=== PATIENT | female | born 1975 | race African-American/Black ===

== ENCOUNTER 2018-03-05 14:48 | Emergency (ER) | payer MEDICARE, OTHER ==
[~2018-03-05] VITALS: Ht 167.6 cm; Wt 186.4 kg
[~2018-03-05 14:48] MED LIST: ALBUTEROL SULFAT2 MG PO; ALBUTEROL2.5 MG/0.5 INH; ALDACTONE50 MG PO; ARANESP 6060 MCG/0.1 SUBQ; ATIVAN1 MG PO; AZITHROMYCIN 2250 MG PO; BENADRYL25 MG PO; BROVANA15 MCG/2 M INH; CARDIZEM CD240 M1 PO; CATAPRES0.2 MG PO; CEFDINIR300 MG PO; CLARITIN10 MG PO; COREG6.25 MG PO; COZAAR 50 MG TA50 M2 PO; CYCLOBENZAPRINE5 MG PO; CYMBALTA20 MG PO; CYMBALTA30 MG PO; DIGOXIN125 MCG PO; DUONEB 2.5-0.5 M3 ML INH; ELIQUIS5 MG PO; ENOXAPARIN60 MG/0.1 SUBQ; FEROSUL325 M1 PO; FLONASE 0.05%50 MCG NASAL; GABAPENTIN 100100 MG PO; HEPARIN 1,100 UNIT/1 SUBQ; HUMALOG100 UNIT/1; HYDRALAZINE 2525 MG PO; HYDROXYZINE HCL25 M1 PO; IMDUR 30 MG TAB30 M1 PO; IPRAT-ALBUT 0.5-3 ML INH; KLOR-CON 1010 MEQ PO; LASIX 40 MG TAB40 M2 PO; LASIX 80 MG TAB80 MG PO; LIDODERM1 EACH TRANSDERM; LINEZOLID600 MG PO; LIORESAL 10 MG10 MG PO; LOPRESSOR100 M1 PO; LOPRESSOR25 PO; LYRICA 50 MG50 MG PER TUBE; MINERAL OIL RECTAL; MIRALAX17 GM PO; MUCINEX1200 MG PO; NASONEX17 GM NASAL; NYSTATIN-TRIAMC15 GM TOP; OMEPRAZOLE 20 M20 M1 PER TUBE; ONDANSETRON HCL4 M2 PO; PEPCID20 MG PO; PERCOCET 10-321 EACH PO; POTASSIUM20 PO; PREDNISONE 10 M10 MG PO; PREDNISONE 20 M20 M1 PO; PROBIOTIC1 EAC1 PO; PROTONIX40 M1 PO; PROTONIX40 M4 PO; REFRESH OPTIVE1 EACH OPHTHALMIC; REGLAN 10 MG TA10 MG PO; SALINE NASAL SP30 ML NASAL; SEROQUEL 50 MG50 MG PO; SINGULAIR 10 MG10 M1 PO; SPIRIVA18 MCG INH; SPIRONOLACTONE25 M1 PO; SYMBICORT160 MCG/4. INH; SYNTHROID50 MCG PO; TOBRAMYCIN300 MG/7.5 INH; TRAMADOL 50 MG50 MG PO; TRAZODONE 150150 M1 PO; TYLENOL EXTRA500 MG PO; UNICOMPLEX M TA1 TA1 PO; VANCOCIN 250 M250 M1 PO; VENTOLIN HFA 1818 GM INH; VITAMIN A AND D TOP; ZANTAC 150MG T150 MG PO; ZINC OXIDE56.7 GM TOP; ZOFRAN ODT4 MG SUBLING; ZOLOFT50 MG PO
[2018-03-05] MEDS ORDERED: OXYCODONE HCL 55 MG PER TUBE (15:41)
[2018-03-05] MEDS ORDERED: ZUPLENZ4 MG PER TUBE (15:41)
[2018-03-05] MEDS ORDERED: SILTUSSIN100 MG/5 M PER TUBE (15:54)
[2018-03-05 16:01] LABS: BE(vivo) 4.8 mmol/L (-2 to +3); HCO3 33.1 mmol/L (22.0-26.0); PO2 135.4 mmHg (80.0-100.0); sO2 98.4 % (92.0-98.0)
[2018-03-05 16:02] LABS: PCO2 67.8 mmHg (35.0-45.0); pH 7.306 (7.360-7.450)
[2018-03-05 16:03] LABS: ABSOLUTE NEUTROPHILS 3.2 thou/uL (1.4-8.2); BASOPHILS 2.4 % (0.0-2.0); EOSINOPHILS 5.9 % (0.0-3.0); HEMATOCRIT 38.5 % (37.0-47.0); HEMOGLOBIN 12.1 gm/dL (12.0-15.0); LYMPHOCYTES 41.9 % (24.0-44.0); MCH 23.5 pg (26.0-34.0); MCHC 31.5 g/dL (28.0-37.0); MCV 74.5 fL (80.0-100.0); MONOCYTES 7.4 % (1.0-8.0); PLATELET COUNT 266 thou/uL (150-400); POLYS 42.4 % (36.0-66.0); RBC 5.17 mil/uL (4.20-5.00); RDW 20.8 % (10.5-14.5); WBC 7.6 thou/uL (4.0-11.0)
[2018-03-05 16:11] LABS: CALCIUM 9.4 mg/dL (8.5-10.1); POTASSIUM 4.2 mmol/L (3.5-5.1)
[2018-03-05 16:31] LABS: ANISOCYTOSIS 2+; PLATELET ESTIMATE NORMAL; POLYCHROMASIA SLIGHT
[2018-03-05 18:53] LABS: BE(vivo) 2.4 mmol/L (-2 to +3); HCO3 29.7 mmol/L (22.0-26.0); PO2 85.6 mmHg (80.0-100.0); pH 7.327 (7.360-7.450); sO2 95.6 % (92.0-98.0)
== END 2018-03-05 20:01 ==
LOC: ER 14:48
PROVIDERS: Emergency Medicine
DX: J39.8 Other specified diseases of upper respiratory tract (principal); R06.00 Dyspnea, unspecified; J95.09 Other tracheostomy complication; J44.9 Chronic obstructive pulmonary disease, unspecified; G47.33 Obstructive sleep apnea (adult) (pediatric); I10 Essential (primary) hypertension; E03.9 Hypothyroidism, unspecified; K21.9 Gastro-esophageal reflux disease without esophagitis; F41.9 Anxiety disorder, unspecified; G62.9 Polyneuropathy, unspecified; F32.9 Major depressive disorder, single episode, unspecified; G89.4 Chronic pain syndrome; Z88.8 Allergy status to other drugs, medicaments and biological substances

== ENCOUNTER 2018-03-09 21:32 | Inpatient (IN) | payer MEDICARE, OTHER ==
[~2018-03-09] VITALS: Ht 167.6 cm; Wt 190.5 kg
--- NOTE | ~2018-03-09 | HC ---
[facility] [place] [address] CONSULTATION Name: DAKOTA MOSQUEDA Room #: 204-P [facility] IN M.R.#: [id number] Admission: 03/09/18 Attend Phys: David Pineda Discharge: Date of : 79 Report #: [id number] THIS REPORT FOR: //name// CC: David Brandt Akkulugari DATE OF SERVICE: 03/12/2018 NEPHROLOGY CONSULTATION REASON FOR CONSULTATION: Acute on chronic kidney disease. HISTORY OF PRESENT ILLNESS: This unfortunate massively morbidly obese patient has had chronic respiratory failure, severe debility and basically been hospitalized or in facilities for the last 8 or so months. She was on mechanical ventilation with tracheostomy for most of that time, although currently is on a trach shield. She is extremely debilitated, a complete care patient, cannot eat with a PEG tube. She has had chronic kidney disease with a creatinine level that has run between 1 and 2 for most of the time that she has been in and out of this hospital, but has had a creatinine as low as 1 at times. She has a history of hypertension as well as obstructive sleep apnea, obesity hypoventilation syndrome and very resistant pneumonia, is currently with a very resistant multiple antibiotic resistant Acinetobacter. She is hospitalized at this time with worsening respiratory condition, has had some mucous plugging and her creatinine has risen back up to a level of 2. PAST MEDICAL HISTORY: Chronically massively morbidly obese with hypothyroidism, paroxysmal atrial fibrillation, history of aspiration pneumonia, chronic pain syndrome, mucous plugging and intermittent respiratory failure. She has also had urinary tract infections. She has a PEG tube, currently not eating. ALLERGIES: REPORTEDLY TO MARTINE INHIBITORS WHERE SHE HAS A COUGH. FAMILY HISTORY: Please see old charts. SOCIAL HISTORY: Formally apparently a heavy smoker as well. REVIEW OF SYSTEMS: Cannot be taken, although she is arousable. PHYSICAL EXAMINATION: GENERAL: Massively morbidly obese patient, quiet and relatively comfortable. SKIN: Otherwise, unremarkable. SKELETAL: Again, the obesity. HEENT: Extraocular movements appear to be full. No scleral icterus. Hearing and vision are intact. Tracheostomy in place. Mucous membranes are on the dry side. [facility] [address] [place] [address] CONSULTATION Name: DAKOTA MOSQUEDA Room #: 204-P [facility] IN .R.#: [id number] Admission: 03/09/18 Attend Phys: David Pineda Discharge: Date of : 79 Report #: [id number] NECK: Appears to be supple. CHEST: Shows diminished breath sounds. HEART: Distant. ABDOMEN: Massively obese. EXTREMITIES: Massively edematous. LABORATORY DATA: Her last urinalysis showed a concentrated sample and this was from today with some white cells, no casts. The hemoglobin is 10.4, white count 5.9 and platelets 157. Sodium 147, potassium 4.8, chloride 107, bicarbonate 30, BUN 40, creatinine 2.4. Most recent ABG showed pCO2 of 43. ASSESSMENT AND PLAN: 1. Acute on chronic kidney disease. This is likely event for the most part hemodynamic condition by multiple medications and procedures probably for the most part related to all of her infections and illnesses and of course, her massive obesity. She does not have heavy proteinuria to suggest focal sclerosis. She is getting appropriate IV fluids and I will not make a change there. I will give her more free water as her serum sodium is up a bit, and I will discontinue the IV Lasix as that does not seem to be appropriate in this case. Her prognosis is poor. I certainly would not consider her a candidate for chronic dialysis therapy should it come to that. 2. Obstructive sleep apnea. 3. Obesity hypoventilation syndrome. 4. Chronic tracheostomy. 5. Resisted pneumonitis. 6. History of atrial fibrillation. 7. Severe chronic debility. 8. Massive morbid obesity. <ELECTRONICALLY SIGNED> By: Lion Person MD 03/13/18 1128 1051 0110 Lion Person MD /nt
--- NOTE | ~2018-03-09 | HC ---
[facility] [place] [address] [place] [address] CONSULTATION Name: JAYLINDAKOTA D Room #: 204-P [facility] IN M.R.#: [id number] Admission: 03/09/18 Attend Phys: David Pineda Discharge: Date of : 79 Report #: [id number] THIS REPORT FOR: //name// CC: David Brandt Akkulugari DATE OF SERVICE: 03/10/2018 INFECTIOUS DISEASE CONSULTATION ATTENDING PHYSICIAN: Dr. Lazo. REASON FOR EVALUATION: Pneumonitis with pseudo-isolative highly-resistant Acinetobacter baumannii. HISTORY OF PRESENT ILLNESS: Chart reviewed, the patient examined. This is a 42-year-old with extensive medical history given her age. She is profoundly disabled, does reside in a fpc. She has chronic respiratory failure and on mechanical ventilatory support via tracheostomy. Apparently, she was more encephalopathic than recently evaluated, including culture of the sputum, which showed multiple-resistant Acinetobacter baumannii, only intermediate to levofloxacin. She is not particularly responsive at this point. She was then referred from the fpc with was thought to be hypoxemia. It is notable there has been suggestive mucus plugging in the past. It is not clear that she has had fevers. Additional studies showed pO2 of 80 on an FiO2 of 50%. Chest x-ray with chronic changes, left lower lung opacities. CBC was noted to be elevated, with white count of 18.3. She was empirically started on broad-spectrum therapy with vancomycin, Zosyn and levofloxacin. ALLERGIES: TO MARTINE INHIBITORS. CURRENT MEDICATIONS: Include vancomycin, pregabalin, apixaban, duloxetine, quetiapine, furosemide, Zosyn, levothyroxine, levofloxacin, budesonide, albuterol, p.r.n. analgesics and antiemetics. PAST MEDICAL HISTORY: Extensive, with some recent anoxic-type encephalopathy, anxiety, depression, COPD, obstructive sleep apnea, chronic respiratory failure with support via tracheostomy and mechanical ventilation, history of urinary tract infections; pneumonitis; sepsis; chronic pain syndrome and left lower extremity paralysis. SOCIAL HISTORY: Heavy tobacco smoker previously, alcohol not noted. No illicit drug use. FAMILY HISTORY: Noncontributory. [facility] [address] [place] [address] CONSULTATION Name: JAYLINDAKOTA D Room #: 204-P [facility] IN ..#: [id number] Admission: 03/09/18 Attend Phys: David Pineda Discharge: Date of : 79 Report #: [id number] REVIEW OF SYSTEMS: Not obtainable. PHYSICAL EXAMINATION: GENERAL: She is obese. She is supine. She is not overtly uncomfortable appearing at this point. She is minimally responsive. VITAL SIGNS: Temperature 98.7, pulse 78, respirations 11 and blood pressure 126/92. SKIN: Warm, dry. HEENT: Tracheostomy in place. Neck appears to be supple. LUNGS: Scattered coarse breath sounds. HEART: Regular, distant. I do not appreciate a murmur. ABDOMEN: Obese. There is no evidence of peritoneal signs. GENITOURINARY: Deferred. RECTAL: Deferred. LABORATORY DATA: CBC: White count of 18.3, H and H 12.7 and 41.3 and platelets of 229,000. Lactic acid 3.0. Electrolytes: Sodium 140, potassium 4.7, chloride 104, bicarbonate is 29, BUN and creatinine 27 and 2.3, estimated GFR of 28. ABGs: A pH of 7.428, pCO2 of 43 and pO2 of 80. Sputum culture from the first shows Acinetobacter noted to the side sensitive to , intermediate to levofloxacin, although otherwise resistant to all previous individual antibiotics tested. ASSESSMENT AND PLAN: Chronic respiratory failure. It is difficult to ascertain the degree of infectious component. I think we can adjust antimicrobial therapy. It may be worthwhile at some point to try the samples to some of the newer broad-spectrum combination therapies directed against resistant gram negatives. At this point, we have limited options based on the in vitro. We will try to optimize other aspects of her situation. Good pulmonary toilet in the event mucus plugging is playing a role here. We will see how she does clinically. <ELECTRONICALLY SIGNED> By: Rolo Braun MD 03/11/18 0357 0634 1306 Rolo Braun MD /nt
[~2018-03-09 21:32] MED LIST changes: +OXYCODONE HCL 55 MG PER TUBE; +SILTUSSIN100 MG/5 M PER TUBE; -TYLENOL EXTRA500 MG PO; +TYLENOL325 MG PO; +ZUPLENZ4 MG PER TUBE
[2018-03-09 21:36] VITALS: BP 122/62
[2018-03-09 22:55] LABS: HCO3 27.8 mmol/L (22.0-26.0); PO2 80 mmHg (80.0-100.0); pH 7.428 (7.360-7.450)
[2018-03-09 22:57] LABS: sO2 96.1 % (92.0-98.0)
[2018-03-10 03:05] LABS: HEMATOCRIT 41.3 % (37.0-47.0); HEMOGLOBIN 12.7 gm/dL (12.0-15.0); MCH 22.8 pg (26.0-34.0); MCHC 30.8 g/dL (28.0-37.0); MCV 73.9 fL (80.0-100.0); PLATELET COUNT 229 thou/uL (150-400); RBC 5.59 mil/uL (4.20-5.00); RDW 20.5 % (10.5-14.5); WBC 18.3 thou/uL (4.0-11.0)
[2018-03-10 03:12] LABS: CALCIUM 8.6 mg/dL (8.5-10.1); CREATININE 2.3 mg/dL (0.6-1.0); POTASSIUM 4.7 mmol/L (3.5-5.1)
[2018-03-10 03:46] LABS: ABSOLUTE NEUTROPHILS 14.5 thou/uL (1.4-8.2); ANISOCYTOSIS 1+; MICROCYTES 1+; POLYCHROMASIA OCCASIONAL
[2018-03-10 03:47] LABS: HYPOCHROMASIA SLIGHT; LARGE PLATELETS OCCASIONAL
[2018-03-10 03:59] VITALS: BP 119/87
[2018-03-10 04:07] VITALS: BP 126/92
[2018-03-10 10:43] VITALS: BP 102/68
[2018-03-10 16:10] VITALS: BP 104/69
[2018-03-10 19:25] VITALS: BP 126/83
[2018-03-11 03:58] VITALS: BP 122/78
[2018-03-11 04:11] LABS: HEMATOCRIT 37.5 % (37.0-47.0); HEMOGLOBIN 12.1 gm/dL (12.0-15.0); MCH 23.8 pg (26.0-34.0); MCHC 32.3 g/dL (28.0-37.0); MCV 73.8 fL (80.0-100.0); RBC 5.09 mil/uL (4.20-5.00); RDW 20.6 % (10.5-14.5); WBC 10.3 thou/uL (4.0-11.0)
[2018-03-11 04:24] LABS: CALCIUM 8.4 mg/dL (8.5-10.1); CREATININE 2.4 mg/dL (0.6-1.0); POTASSIUM 4.7 mmol/L (3.5-5.1)
[2018-03-11 07:19] VITALS: BP 122/76
[2018-03-11 11:41] VITALS: BP 114/72
[2018-03-11 14:58] VITALS: BP 143/72
[2018-03-11 19:51] VITALS: BP 113/77
[2018-03-12 03:13] LABS: HEMATOCRIT 33.7 % (37.0-47.0); HEMOGLOBIN 10.4 gm/dL (12.0-15.0); MCH 22.9 pg (26.0-34.0); MCHC 30.8 g/dL (28.0-37.0); MCV 74.1 fL (80.0-100.0); RBC 4.55 mil/uL (4.20-5.00); RDW 20.8 % (10.5-14.5); WBC 5.9 thou/uL (4.0-11.0)
[2018-03-12 03:22] LABS: CALCIUM 7.9 mg/dL (8.5-10.1); CREATININE 2.4 mg/dL (0.6-1.0); POTASSIUM 4.8 mmol/L (3.5-5.1)
[2018-03-12 03:24] LABS: URINE BILIRUBIN NEGATIVE (Negative); URINE BLOOD 2+ (Negative); URINE CLARITY CLEAR; URINE COLOR YELLOW; URINE GLUCOSE-RANDOM* NEGATIVE (Negative); URINE KETONES NEGATIVE (Negative); URINE NITRITE-REFLEX NEGATIVE (Negative); URINE PROTEIN (DIPSTICK) NEGATIVE (Negative); URINE SPECIFIC GRAVITY 1.025 (1.005-1.035); URINE UROBILINOGEN 0.2 E.U./dl (0.2-1.0)
[2018-03-12 03:25] LABS: URINE LEUKOCYTES-REFLEX 2+ (Negative)
[2018-03-12 03:33] LABS: BACTERIA-REFLEX 1-9 Few /HPF (None Seen); CASTS None Seen /LPF (None Seen); CRYSTALS None Seen /LPF (None Seen); SQUAMOUS 0-3 Few /LPF (0-3); URINE RBC 0-2 Rare /HPF (0-2)
[2018-03-12 03:34] LABS: YEAST-REFLEX Present (None Seen)
[2018-03-12 04:53] VITALS: BP 164/102
[2018-03-12 07:22] VITALS: BP 131/75
[2018-03-12 11:49] VITALS: BP 123/84
[2018-03-12 14:38] LABS: INR 1.2; PROTIME 12.3 Seconds (9.3-11.4)
[2018-03-12 15:39] VITALS: BP 127/86
[2018-03-12 20:00] VITALS: BP 119/72
[2018-03-13 00:06] VITALS: BP 120/75
[2018-03-13 03:17] LABS: HEMATOCRIT 36.4 % (37.0-47.0); HEMOGLOBIN 11.1 gm/dL (12.0-15.0); MCH 22.6 pg (26.0-34.0); MCHC 30.4 g/dL (28.0-37.0); MCV 74.2 fL (80.0-100.0); RBC 4.91 mil/uL (4.20-5.00); RDW 20.3 % (10.5-14.5); WBC 5.4 thou/uL (4.0-11.0)
[2018-03-13 03:33] LABS: ALBUMIN 1.7 g/dL (3.4-5.0); CALCIUM 8.2 mg/dL (8.5-10.1); CREATININE 2.2 mg/dL (0.6-1.0); PHOSPHORUS 5.1 mg/dL (2.5-4.9); POTASSIUM 4.8 mmol/L (3.5-5.1)
[2018-03-13 04:00] VITALS: BP 122/63
[2018-03-13 08:54] VITALS: BP 102/62
[2018-03-13 11:23] VITALS: BP 112/74
[2018-03-13 15:03] VITALS: BP 152/97
[2018-03-13 19:43] VITALS: BP 117/69
[2018-03-14 04:42] VITALS: BP 110/78
[2018-03-14 06:16] LABS: ABSOLUTE NEUTROPHILS 2.9 thou/uL (1.4-8.2); BASOPHILS 0.1 % (0.0-2.0); HEMOGLOBIN 9.9 gm/dL (12.0-15.0); MCH 23.6 pg (26.0-34.0); MCHC 31.9 g/dL (28.0-37.0); MONOCYTES 5.7 % (1.0-8.0); PLATELET COUNT 112 thou/uL (150-400); POLYS 74.2 % (36.0-66.0); RBC 4.19 mil/uL (4.20-5.00); RDW 20.5 % (10.5-14.5); WBC 3.9 thou/uL (4.0-11.0)
[2018-03-14 06:21] LABS: ALBUMIN 1.6 g/dL (3.4-5.0); CALCIUM 7.5 mg/dL (8.5-10.1); CREATININE 1.7 mg/dL (0.6-1.0); PHOSPHORUS 4.1 mg/dL (2.5-4.9); POTASSIUM 4.4 mmol/L (3.5-5.1)
[2018-03-14 08:44] VITALS: BP 111/68
[2018-03-14 10:33] LABS: ANISOCYTOSIS 1+; PLATELET ESTIMATE NORMAL
[2018-03-14 10:34] LABS: HYPOCHROMASIA 1+; MICROCYTES 2+
[2018-03-14 11:39] VITALS: BP 124/80
[2018-03-14 16:29] VITALS: BP 149/85
[2018-03-14 20:57] VITALS: BP 112/73
[2018-03-15 04:59] LABS: ALBUMIN 1.7 g/dL (3.4-5.0); CALCIUM 7.6 mg/dL (8.5-10.1); CREATININE 1.4 mg/dL (0.6-1.0); PHOSPHORUS 3.9 mg/dL (2.5-4.9); POTASSIUM 4.7 mmol/L (3.5-5.1)
[2018-03-15 06:12] VITALS: BP 109/69
[2018-03-15 08:05] VITALS: BP 132/66
[2018-03-15 17:17] VITALS: BP 132/60
[2018-03-15 18:30] LABS: CALCIUM 8.4 mg/dL (8.5-10.1); CREATININE 1.3 mg/dL (0.6-1.0); POTASSIUM 4.6 mmol/L (3.5-5.1)
[2018-03-15 18:31] LABS: MAGNESIUM 1.8 mg/dL (1.8-2.4)
[2018-03-15 20:01] VITALS: BP 129/68
[2018-03-16 02:58] LABS: CALCIUM 8.3 mg/dL (8.5-10.1); CREATININE 1.1 mg/dL (0.6-1.0); POTASSIUM 4.6 mmol/L (3.5-5.1)
[2018-03-16 05:08] VITALS: BP 132/60
[2018-03-16 08:39] VITALS: BP 135/76
[2018-03-16 17:30] VITALS: BP 160/87
[2018-03-16 20:38] VITALS: BP 138/69
[2018-03-17 02:11] LABS: HEMATOCRIT 31.2 % (37.0-47.0); HEMOGLOBIN 9.7 gm/dL (12.0-15.0); MCH 22.9 pg (26.0-34.0); MCV 73.9 fL (80.0-100.0); PLATELET COUNT 98 thou/uL (150-400); RBC 4.22 mil/uL (4.20-5.00); RDW 19.9 % (10.5-14.5); WBC 9.7 thou/uL (4.0-11.0)
[2018-03-17 02:23] LABS: CALCIUM 8.6 mg/dL (8.5-10.1); POTASSIUM 4.4 mmol/L (3.5-5.1)
[2018-03-17 03:23] LABS: ABSOLUTE NEUTROPHILS 8.1 thou/uL (1.4-8.2)
[2018-03-17 03:24] LABS: ANISOCYTOSIS 1+; HYPOCHROMASIA 2+; MICROCYTES 1+; OVALOCYTES OCCASIONAL; TARGET CELLS OCCASIONAL
[2018-03-17 04:40] VITALS: BP 86/67
[2018-03-17 04:51] VITALS: BP 152/87
[2018-03-17 07:50] VITALS: BP 143/79
[2018-03-17 09:22] LABS: POTASSIUM 4.4 mmol/L (3.5-5.1)
[2018-03-17 11:45] VITALS: BP 143/71
[2018-03-17 15:30] VITALS: BP 137/76
[2018-03-17 19:28] VITALS: BP 115/57
[2018-03-18 04:27] VITALS: BP 114/56
[2018-03-18 05:34] LABS: HEMATOCRIT 26.1 % (37.0-47.0); MCH 22.6 pg (26.0-34.0); MCHC 30.8 g/dL (28.0-37.0); MCV 73.4 fL (80.0-100.0); PLATELET COUNT 83 thou/uL (150-400); RBC 3.56 mil/uL (4.20-5.00); RDW 19.9 % (10.5-14.5)
[2018-03-18 05:47] LABS: CALCIUM 8.5 mg/dL (8.5-10.1); CREATININE 0.9 mg/dL (0.6-1.0)
[2018-03-18 06:12] LABS: ABSOLUTE NEUTROPHILS 4.4 thou/uL (1.4-8.2); ANISOCYTOSIS 2+; HYPOCHROMASIA 2+; LARGE PLATELETS FEW; MICROCYTES 2+; PLATELET ESTIMATE DECREASED
[2018-03-18 08:00] VITALS: BP 134/57
[2018-03-18 12:27] LABS: CALCIUM 8.8 mg/dL (8.5-10.1); CREATININE 0.8 mg/dL (0.6-1.0); POTASSIUM 4.2 mmol/L (3.5-5.1)
[2018-03-18 15:50] VITALS: BP 120/55
[2018-03-18 20:00] VITALS: BP 119/69
[2018-03-19 02:02] LABS: ABSOLUTE NEUTROPHILS 6.1 thou/uL (1.4-8.2); BASOPHILS 0.5 % (0.0-2.0); EOSINOPHILS 6.9 % (0.0-3.0); HEMOGLOBIN 8.7 gm/dL (12.0-15.0); LYMPHOCYTES 32.5 % (24.0-44.0); MCH 22.7 pg (26.0-34.0); MCHC 30.9 g/dL (28.0-37.0); MCV 73.4 fL (80.0-100.0); MONOCYTES 9.2 % (1.0-8.0); PLATELET COUNT 101 thou/uL (150-400); POLYS 50.9 % (36.0-66.0); RBC 3.81 mil/uL (4.20-5.00); RDW 19.4 % (10.5-14.5)
[2018-03-19 02:05] LABS: CALCIUM 8.8 mg/dL (8.5-10.1); CREATININE 0.8 mg/dL (0.6-1.0)
[2018-03-19 03:22] LABS: ANISOCYTOSIS 1+; HYPOCHROMASIA 2+; MICROCYTES 1+; TARGET CELLS OCCASIONAL
[2018-03-19 04:38] VITALS: BP 124/67
[2018-03-19 07:40] VITALS: BP 133/76
[2018-03-19 11:55] VITALS: BP 128/70
[2018-03-19 15:55] VITALS: BP 163/79
[2018-03-19 20:14] VITALS: BP 164/90
[2018-03-20 00:53] LABS: HEMATOCRIT 27.8 % (37.0-47.0); MCH 23.5 pg (26.0-34.0); MCHC 32.3 g/dL (28.0-37.0); MCV 72.7 fL (80.0-100.0); PLATELET COUNT 98 thou/uL (150-400); RBC 3.83 mil/uL (4.20-5.00); RDW 19.6 % (10.5-14.5); WBC 9.7 thou/uL (4.0-11.0)
[2018-03-20 01:08] LABS: CALCIUM 8.8 mg/dL (8.5-10.1); CREATININE 0.8 mg/dL (0.6-1.0); POTASSIUM 3.7 mmol/L (3.5-5.1)
[2018-03-20 01:28] LABS: ABSOLUTE NEUTROPHILS 7.5 thou/uL (1.4-8.2)
[2018-03-20 01:29] LABS: ANISOCYTOSIS 1+; HYPOCHROMASIA 1+; MICROCYTES 1+; TARGET CELLS 1+
[2018-03-20 05:04] VITALS: BP 143/79
[2018-03-20 07:30] VITALS: BP 139/74
[2018-03-20 11:10] VITALS: BP 130/69
[2018-03-20 15:55] VITALS: BP 196/73
[2018-03-20 19:18] VITALS: BP 146/82
[2018-03-21 04:33] VITALS: BP 121/74
[2018-03-21 06:12] LABS: HEMATOCRIT 25.4 % (37.0-47.0); HEMOGLOBIN 8.3 gm/dL (12.0-15.0); MCH 23.7 pg (26.0-34.0); MCHC 32.8 g/dL (28.0-37.0); MCV 72.4 fL (80.0-100.0); PLATELET COUNT 114 thou/uL (150-400); RBC 3.52 mil/uL (4.20-5.00); RDW 19.9 % (10.5-14.5); WBC 13.1 thou/uL (4.0-11.0)
[2018-03-21 06:19] LABS: CALCIUM 9.1 mg/dL (8.5-10.1); CREATININE 0.8 mg/dL (0.6-1.0); POTASSIUM 3.5 mmol/L (3.5-5.1)
[2018-03-21 08:06] VITALS: BP 122/62
[2018-03-21 08:44] LABS: ABSOLUTE NEUTROPHILS 6.7 thou/uL (1.4-8.2); PLATELET ESTIMATE NORMAL
[2018-03-21 08:45] LABS: ANISOCYTOSIS 2+; MICROCYTES 1+; SCHISTOCYTES RARE
[2018-03-21] MEDS ORDERED: MINOCIN50 MG PO (11:48)
[2018-03-21] MEDS ORDERED: HYDROCODON-ACE1 EAC7 PO (12:06)
[2018-03-21 12:10] VITALS: BP 104/57
[2018-03-21] MEDS ORDERED: DIGOXIN125 MCG PO (12:18)
[2018-03-21] MEDS ORDERED: ZAROXOLYN 5MG TA5 MG PO (12:19)
[2018-03-21] MEDS ORDERED: GLUCAGEN1 MG/1 ML IM (12:22)
[2018-03-21 13:36] VITALS: BP 104/57
[2018-03-21] MEDS ORDERED: SPIRONOLACTONE25 M1 PO (13:42)
== END 2018-03-21 17:48 | DRG 871 ==
LOC: ER 21:32 → EROBS 23:52 → 2N 23:52
PROVIDERS: Family Medicine; Internal Medicine; Internal Medicine Nephrology; Internal Medicine Pulmonary Disease; Nurse Practitioner Family; Student in an Organized Health Care Education/Training Program
DX: A41.9 Sepsis, unspecified organism (principal); J96.21 Acute and chronic respiratory failure with hypoxia; E43 Unspecified severe protein-calorie malnutrition; I50.33 Acute on chronic diastolic (congestive) heart failure; J15.29 Pneumonia due to other staphylococcus; G93.40 Encephalopathy, unspecified; N17.9 Acute kidney failure, unspecified; E87.0 Hyperosmolality and hypernatremia; E27.40 Unspecified adrenocortical insufficiency; Z68.44 Body mass index [BMI] 60.0-69.9, adult; J44.0 Chronic obstructive pulmonary disease with (acute) lower respiratory infection; I13.0 Hypertensive heart and chronic kidney disease with heart failure and stage 1 through stage 4 chronic kidney disease, or unspecified chronic kidney disease; G47.33 Obstructive sleep apnea (adult) (pediatric); E03.9 Hypothyroidism, unspecified; K21.9 Gastro-esophageal reflux disease without esophagitis; G60.9 Hereditary and idiopathic neuropathy, unspecified; F41.9 Anxiety disorder, unspecified; F32.9 Major depressive disorder, single episode, unspecified; G89.4 Chronic pain syndrome; E66.01 Morbid (severe) obesity due to excess calories; I48.0 Paroxysmal atrial fibrillation; N18.9 Chronic kidney disease, unspecified; R13.10 Dysphagia, unspecified; Y95 Nosocomial condition; E16.2 Hypoglycemia, unspecified; E88.09 Other disorders of plasma-protein metabolism, not elsewhere classified; D69.6 Thrombocytopenia, unspecified; G72.9 Myopathy, unspecified; Z88.8 Allergy status to other drugs, medicaments and biological substances; Z87.81 Personal history of (healed) traumatic fracture; Z93.0 Tracheostomy status; Z93.1 Gastrostomy status
CPT/HCPCS: 10081

== ENCOUNTER 2018-03-25 03:13 | Inpatient (IN) | payer MEDICARE, OTHER ==
[~2018-03-25] VITALS: Ht 170.2 cm; Wt 193.3 kg
[2018-03-25] VITALS (14 sets, daily range): BP systolic 95–147; BP diastolic 47–90
--- NOTE | ~2018-03-25 | HC ---
[facility] [place] [address] [place] [address] CONSULTATION Name: JAYLINDAKOTA Jennie Room #: 361-P [facility] IN ..#: [id number] Admission: 03/25/18 Attend Phys: Kurt Case MD Discharge: Date of : 79 Report #: [id number] THIS REPORT FOR: //name// CC: Kurt Brandt Akkulugari DATE OF SERVICE: 03/26/2018 CHIEF COMPLAINT: Multiple cutaneous ulcerations. HISTORY OF PRESENT ILLNESS: This is a 42-year-old morbidly obese female patient with history of respiratory failure and tracheostomy who was admitted for pneumonia and respiratory failure with mucus plugging. She was hypoxic with sats in the 70s and is admitted for further evaluation and treatment. She is noted to have multiple ulcerations to her sacral gluteal region as well as under her arms and skin fold and I have been asked to see her in this regard. The patient is unable to answer many questions at this point in time. ALLERGIES: MARTINE INHIBITORS. MEDICATIONS INCLUDE: Minocycline, hydrocodone, acetaminophen, glucagon, spironolactone, carvedilol, duloxetine, DuoNeb, omeprazole, nystatin, triamcinolone, baclofen. PAST MEDICAL HISTORY: Super morbid obesity, atrial fibrillation, mucus plugging, general debility, respiratory failure, urinary tract infection, right distal femur fracture, hypertension, obstructive sleep apnea, hypothyroidism, gastroesophageal reflux disease, urinary retention. SOCIAL HISTORY: The patient admits to having 1-2 alcoholic drinks per week. Previous smoker. Denies drug use. FAMILY HISTORY: Noncontributory. REVIEW OF SYSTEMS: Not obtainable due to the patient's current respiratory issues. PHYSICAL EXAMINATION: VITAL SIGNS: At this time include temperature 37.1, pulse 99, respiratory rate 18, blood pressure 123/83. GENERAL: This is a chronically ill-appearing female patient who appears to be in minimal distress. HEENT: Head is normocephalic. Nose and throat clear. NECK: Supple. LUNGS: Diminished. HEART: Regular rhythm. [facility] [address] [place] [address] CONSULTATION Name: DAKOTA MOSQUEDA Room #: 361-[facility] IN M.R.#: [id number] Admission: 03/25/18 Attend Phys: Kurt Case MD Discharge: Date of : 77 Report #: [id number] ABDOMEN: Soft, obese. She has intertrigo of multiple skin folds beneath her breasts, axilla and abdominal skin folds. I have not been able to evaluate her posterior thighs, gluteal sacral region as she has refused to turn at this time due to respiratory difficulty. NEUROLOGIC: The patient is alert. She seems to be moving all 4 extremities spontaneously. LABORATORY DATA: Sodium 145, potassium 3.8, CO2 of 29, BUN 9, creatinine 0.9, glucose 97, total protein 5.2, albumin is low at 1.8. White blood cell count elevated at 13.9, hemoglobin 7.6. CLINICAL IMPRESSION: 1. Intertrigo. 2. History of sacral gluteal posterior thigh, moisture-associated dermatitis. RECOMMENDATIONS: At this point in time, the patient will be placed in a bariatric low air loss mattress, which we will order today. Prevalon boots for pressure prophylaxis of her heel. She will need q. 2 hour turning and repositioning, aggressive nutritional support. She would certainly benefit from weight loss. We will recommend [employer] to her skin folds and Silvadene, morphine, and zinc oxide to the sacral gluteal region. She agrees to allow us to look at her backside tomorrow. I appreciate being asked to see her in consultation. <ELECTRONICALLY SIGNED> By: Jalil Li MD 03/28/18 0744 [id number] 0050 Jalil Li MD /nt
--- NOTE | ~2018-03-25 | EKG ---
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: tre : 1975 Requested By: Luis Enrique Ahuja Order Number: [id number] MD: Enio Palmer Measurements Intervals [place] Rate: 101 P: 53 [place]: 141 QRS: 43 QRSD: 80 T: -5 QT: 353 QTc: 458 Interpretive Statements Sinus tachycardia Nonspecific T abnormalities, anterior leads Compared to ECG 02/10/2018 12:10:48 T-wave abnormality now present Atrial fibrillation no longer present Early repolarization no longer present Possible ischemia no longer present Electronically Signed On 03-26-2018 8:33:24 CDT by Enio Palmer [email or web address] <ELECTRONICALLY SIGNED> By: Enio Palmer MD 03/26/18 0833 0356 0356 Enio Palmer MD /EPI
[~2018-03-25 03:13] MED LIST changes: +GLUCAGEN1 MG/1 ML IM; +HYDROCODON-ACE1 EAC7 PO; +MINOCIN50 MG PO; +ZAROXOLYN 5MG TA5 MG PO
[2018-03-25 03:50] LABS: HEMATOCRIT 26.6 % (37.0-47.0); HEMOGLOBIN 8.5 gm/dL (12.0-15.0); MCH 23.8 pg (26.0-34.0); MCHC 32.1 % (28.0-37.0); MCV 74.2 fL (80.0-100.0); PLATELET COUNT 202 thou/uL (150-400); RBC 3.59 mil/uL (4.20-5.00)
[2018-03-25 03:56] LABS: ANION GAP 10 mmol/L (7-16); BUN 10 mg/dL (7-18); CALCIUM 8.4 mg/dL (8.5-10.1); CHLORIDE 105 mmol/L (98-107); CO2 28 mmol/L (21-32); GLUCOSE 117 mg/dL (74-106); POTASSIUM 4.3 mmol/L (3.5-5.1); SODIUM 143 mmol/L (136-145)
[2018-03-25 04:04] LABS: BE(vivo) 2.5 mmol/L (-2 to +3); HCO3 26.6 mmol/L (22.0-26.0); PCO2 38.9 mmHg (35.0-45.0); PO2 176.8 mmHg (80.0-100.0); pH 7.453 (7.360-7.450); sO2 99.3 % (92.0-98.0)
[2018-03-25 04:05] LABS: ALBUMIN 1.8 g/dL (3.4-5.0); MAGNESIUM 1.5 mg/dL (1.8-2.4); SGOT 44 U/L (15-37); SGPT 31 U/L (30-65); TOTAL BILIRUBIN 0.6 mg/dL (<0.1-1.0); TOTAL PROTEIN 5.2 g/dL (6.4-8.2); TROPONIN-I <0.06 ng/mL (<0.06)
[2018-03-25 04:36] LABS: ABSOLUTE NEUTROPHILS 4.4 thou/uL (1.4-8.2); NUCLEATED RBCS 1 /100WBC
[2018-03-25 04:37] LABS: ANISOCYTOSIS 1+; HYPOCHROMASIA SLIGHT; MICROCYTES SLIGHT; OVALOCYTES FEW; POIKILOCYTOSIS 1+; POLYCHROMASIA SLIGHT
[2018-03-25 16:31] LABS: URINE BILIRUBIN NEGATIVE (Negative); URINE BLOOD 3+ (Negative); URINE COLOR YELLOW; URINE GLUCOSE-RANDOM* NEGATIVE (Negative); URINE KETONES NEGATIVE (Negative); URINE NITRITE-REFLEX NEGATIVE (Negative); URINE PROTEIN (DIPSTICK) 1+ (Negative); URINE SPECIFIC GRAVITY 1.025 (1.005-1.035); URINE UROBILINOGEN 0.2 E.U./dl (0.2-1.0)
[2018-03-25 16:33] LABS: URINE CLARITY SL HAZY; URINE LEUKOCYTES-REFLEX 2+ (Negative)
[2018-03-25 16:45] LABS: CASTS None Seen /LPF (None Seen); SQUAMOUS 4-10 Moderate /LPF (0-3); URINE WBC-REFLEX >25 Many /HPF (0-5); YEAST-REFLEX Present (None Seen)
[2018-03-25 16:46] LABS: BACTERIA-REFLEX None Seen /HPF (None Seen); URINE RBC 3-10 Few /HPF (0-2)
[2018-03-25 16:47] LABS: URIC ACID CRYSTALS 4-10 Moderate /LPF (None Seen)
[2018-03-26] VITALS (9 sets, daily range): BP systolic 88–123; BP diastolic 54–83
[2018-03-26 04:33] LABS: HEMOGLOBIN 7.6 gm/dL (12.0-15.0); MCH 23.2 pg (26.0-34.0); MCHC 31.6 g/dL (28.0-37.0); MCV 73.5 fL (80.0-100.0); RBC 3.26 mil/uL (4.20-5.00); RDW 21.8 % (10.5-14.5); WBC 13.9 thou/uL (4.0-11.0)
[2018-03-26 04:36] LABS: CREATININE 0.9 mg/dL (0.6-1.0); POTASSIUM 3.8 mmol/L (3.5-5.1)
[2018-03-26] MEDS ORDERED: OXYCODONE HCL 55 MG PER TUBE (11:10)
[2018-03-26] MEDS ORDERED: POTASSIUM20 PER TUBE (11:10)
[2018-03-26] MEDS ORDERED: PERCOCET 10-321 EAC1 PO (11:10)
[2018-03-26] MEDS ORDERED: ALDACTONE50 MG PO (11:11)
[2018-03-26] MEDS ORDERED: METOLAZONE 5 MG5 MG PER TUBE (11:11)
[2018-03-26] MEDS ORDERED: HYDRALAZINE 2525 MG PO (11:11)
[2018-03-26] MEDS ORDERED: PULMICORT0.25 MG/3 INH (11:12)
[2018-03-26] MEDS ORDERED: CYMBALTA30 MG PO (11:12)
[2018-03-26] MEDS ORDERED: DIGOXIN125 MCG PO (11:12)
[2018-03-26] MEDS ORDERED: LIDODERM1 EACH TRANSDERM (11:13)
[2018-03-27 06:17] VITALS: BP 92/55
[2018-03-27 07:09] LABS: ABSOLUTE NEUTROPHILS 7.1 thou/uL (1.4-8.2); BASOPHILS 0.8 % (0.0-2.0); EOSINOPHILS 6.4 % (0.0-3.0); HEMATOCRIT 21.8 % (37.0-47.0); HEMOGLOBIN 7.1 gm/dL (12.0-15.0); LYMPHOCYTES 17.2 % (24.0-44.0); MCH 23.8 pg (26.0-34.0); MCHC 32.5 g/dL (28.0-37.0); MCV 73.3 fL (80.0-100.0); PLATELET COUNT 179 thou/uL (150-400); POLYS 64.6 % (36.0-66.0); RBC 2.98 mil/uL (4.20-5.00); RDW 21.5 % (10.5-14.5); WBC 10.9 thou/uL (4.0-11.0)
[2018-03-27 07:23] LABS: CALCIUM 7.8 mg/dL (8.5-10.1); CREATININE 0.9 mg/dL (0.6-1.0)
[2018-03-27 08:32] LABS: ANISOCYTOSIS 2+; HYPOCHROMASIA 1+; MICROCYTES 2+; PLATELET ESTIMATE NORMAL
[2018-03-27 13:24] VITALS: BP 97/57
[2018-03-27 17:05] VITALS: BP 97/41
[2018-03-27 21:00] VITALS: BP 126/61
[2018-03-28 05:07] VITALS: BP 119/64
[2018-03-28 06:10] LABS: HEMATOCRIT 21.7 % (37.0-47.0); MCH 23.6 pg (26.0-34.0); MCHC 32.3 g/dL (28.0-37.0); RBC 2.98 mil/uL (4.20-5.00); RDW 21.3 % (10.5-14.5); WBC 10.7 thou/uL (4.0-11.0)
[2018-03-28 06:34] LABS: CREATININE 0.9 mg/dL (0.6-1.0); POTASSIUM 3.6 mmol/L (3.5-5.1)
[2018-03-28 09:06] VITALS: BP 137/75
[2018-03-28 11:56] VITALS: BP 114/60
[2018-03-28 19:21] VITALS: BP 117/56
[2018-03-28 19:48] VITALS: BP 110/53
[2018-03-29 04:56] VITALS: BP 100/54
[2018-03-29 06:12] LABS: CALCIUM 7.7 mg/dL (8.5-10.1); CREATININE 0.7 mg/dL (0.6-1.0); POTASSIUM 3.8 mmol/L (3.5-5.1)
[2018-03-29 06:15] LABS: HEMOGLOBIN 7.4 gm/dL (12.0-15.0); MCH 23.6 pg (26.0-34.0); MCV 73.7 fL (80.0-100.0); RBC 3.13 mil/uL (4.20-5.00); RDW 21.6 % (10.5-14.5); WBC 9.4 thou/uL (4.0-11.0)
[2018-03-29 08:00] VITALS: BP 105/68
[2018-03-29 11:10] VITALS: BP 99/56
[2018-03-29 15:22] VITALS: BP 112/77
[2018-03-30 05:50] VITALS: BP 127/67
[2018-03-30 06:45] LABS: HEMATOCRIT 23.3 % (37.0-47.0); HEMOGLOBIN 7.5 gm/dL (12.0-15.0); MCH 23.7 pg (26.0-34.0); MCHC 32.3 g/dL (28.0-37.0); MCV 73.4 fL (80.0-100.0); RBC 3.17 mil/uL (4.20-5.00); RDW 21.8 % (10.5-14.5); WBC 9.5 thou/uL (4.0-11.0)
[2018-03-30 07:01] LABS: CALCIUM 8.4 mg/dL (8.5-10.1); CREATININE 0.8 mg/dL (0.6-1.0); POTASSIUM 3.2 mmol/L (3.5-5.1)
[2018-03-30 07:56] VITALS: BP 136/78
[2018-03-30] MEDS ORDERED: SPIRONOLACTONE25 M1 PO (11:41)
[2018-03-30 11:42] VITALS: BP 107/61
[2018-03-30] MEDS ORDERED: DEMADEX20 MG PO (11:42)
[2018-03-30] MEDS ORDERED: LEVAQUIN 750 M750 MG PO (11:44)
[2018-03-30] MEDS ORDERED: ZOSYN 3.3753.375 GM IV (14:32)
[2018-03-30 16:51] VITALS: BP 118/71
== END 2018-03-30 18:14 | DRG 871 ==
LOC: ER 03:13 → EROBS 04:36 → ICU 04:36 → 3W 03-26 14:31
PROVIDERS: Emergency Medicine; Hospitalist; Internal Medicine; Student in an Organized Health Care Education/Training Program
PROC: 5A1935Z Respiratory Ventilation, Less than 24 Consecutive Hours (ICD-10-PCS; principal; 2018-03-25)
PROC: 5A09357 Assistance with Respiratory Ventilation, Less than 24 Consecutive Hours, Continuous Positive Airway Pressure (ICD-10-PCS; 2018-03-25)
PROC: 5A09357 Assistance with Respiratory Ventilation, Less than 24 Consecutive Hours, Continuous Positive Airway Pressure (ICD-10-PCS; 2018-03-26)
PROC: 5A09357 Assistance with Respiratory Ventilation, Less than 24 Consecutive Hours, Continuous Positive Airway Pressure (ICD-10-PCS; 2018-03-27)
PROC: 5A09357 Assistance with Respiratory Ventilation, Less than 24 Consecutive Hours, Continuous Positive Airway Pressure (ICD-10-PCS; 2018-03-28)
PROC: 5A09357 Assistance with Respiratory Ventilation, Less than 24 Consecutive Hours, Continuous Positive Airway Pressure (ICD-10-PCS; 2018-03-29)
PROC: 5A09357 Assistance with Respiratory Ventilation, Less than 24 Consecutive Hours, Continuous Positive Airway Pressure (ICD-10-PCS; 2018-03-30)
DX: A41.9 Sepsis, unspecified organism (principal); J18.9 Pneumonia, unspecified organism; J96.21 Acute and chronic respiratory failure with hypoxia; I50.33 Acute on chronic diastolic (congestive) heart failure; J96.22 Acute and chronic respiratory failure with hypercapnia; G72.81 Critical illness myopathy; N17.9 Acute kidney failure, unspecified; J98.11 Atelectasis; Z68.44 Body mass index [BMI] 60.0-69.9, adult; J44.0 Chronic obstructive pulmonary disease with (acute) lower respiratory infection; I13.0 Hypertensive heart and chronic kidney disease with heart failure and stage 1 through stage 4 chronic kidney disease, or unspecified chronic kidney disease; E66.01 Morbid (severe) obesity due to excess calories; G47.00 Insomnia, unspecified; G47.33 Obstructive sleep apnea (adult) (pediatric); E03.9 Hypothyroidism, unspecified; K21.9 Gastro-esophageal reflux disease without esophagitis; G60.9 Hereditary and idiopathic neuropathy, unspecified; F32.9 Major depressive disorder, single episode, unspecified; E88.09 Other disorders of plasma-protein metabolism, not elsewhere classified; E83.42 Hypomagnesemia; D50.9 Iron deficiency anemia, unspecified; L30.4 Erythema intertrigo; Y95 Nosocomial condition; E16.2 Hypoglycemia, unspecified; N18.9 Chronic kidney disease, unspecified; G89.4 Chronic pain syndrome; I27.20 Pulmonary hypertension, unspecified; L89.159 Pressure ulcer of sacral region, unspecified stage; I48.0 Paroxysmal atrial fibrillation; I35.0 Nonrheumatic aortic (valve) stenosis; T17.990A Other foreign object in respiratory tract, part unspecified in causing asphyxiation, initial encounter; X58.XXXA Exposure to other specified factors, initial encounter; Y93.89 Activity, other specified; Y92.89 Other specified places as the place of occurrence of the external cause; Z93.0 Tracheostomy status; Z87.891 Personal history of nicotine dependence; Z87.81 Personal history of (healed) traumatic fracture; Y99.8 Other external cause status; Z23 Encounter for immunization; Z79.899 Other long term (current) drug therapy
CPT/HCPCS: 10078; 10879

== ENCOUNTER 2018-04-05 14:51 | Emergency (ER) | payer MEDICARE, OTHER ==
[~2018-04-05] VITALS: Ht 162.6 cm; Wt 181.9 kg
--- NOTE | ~2018-04-05 | P ---
[facility] [place] [address] [place] [address] PROCEDURE REPORT Name: DAKOTA MOSQUEDA Jennie [id number] Admission: 04/05/18 Attend Phys: Discharge: 04/05/18 Date of : 77 Report #: [id number] THIS REPORT FOR: //name// CC: Elvis Brandt Akkulugari DATE OF SERVICE: 04/05/2018 MEDICAL RECEPTION: Elvis Gonzalez MD. REASON FOR CONSULTATION: Tracheostomy tube displacement. HISTORY OF PRESENT ILLNESS: The patient is a 42-year-old female who has morbid obesity, weighing over 440 pounds. She is in a rehabilitation hospital with a tracheostomy due to oxygen desaturations at night. She is on Eliquis. Her tracheostomy tube became dislodged and she was brought to the Emergency Room. The tracheostomy tract had mostly closed. I was asked to see her and evaluate her and assist with attempt to replace the tracheostomy tube. PHYSICAL EXAMINATION: GENERAL: Morbidly obese, comfortable female in no distress. She is well oxygenated and getting good respirations with nasal cannula oxygen. NECK: Tracheocutaneous fistula, almost entirely closed. ASSESSMENT: 1. Morbid obesity. 2. Respiratory failure. 3. Tracheostomy tube dependency. PROCEDURE: Revision tracheostomy. DESCRIPTION OF PROCEDURE: The neck was injected with 10 mL of 1% lidocaine with epinephrine. I then injected 5 mL of 1% plain lidocaine, transtracheal with an 18-gauge needle. I then dilated the fistula tract with a hemostat. In the process, I was able to slip the end of the hemostat into the trachea. I then inserted a suction catheter along the hemostat into the trachea. I was able to suction the trachea this way. I then enlarged the incision with Metzenbaum scissors. I then snipped off the proximal end of the suction catheter and slid a #8 Shiley extra-long tracheostomy tube over the suction catheter, lubricated the tip and then pushed it into the trachea. It was secured to the neck skin with 3-0 nylon sutures and tracheostomy ties. The suction catheter was removed to course in the process and the inner cannula was inserted. The cuff was inflated. We were able to successfully suction through the tracheostomy and the patient was able to successfully breathe through the tracheostomy. RECOMMENDATION: [address] [address] PROCEDURE REPORT Name: DAKOTA MOSQUEDA [facility] [id number] Admission: 04/05/18 Attend Phys: Discharge: 04/05/18 Date of : 79 Report #: [id number] 1. We will proceed with bronchoscopy to assure tracheostomy tube placement. 2. Resume routine tracheostomy care with suture removal in about 10 days. <ELECTRONICALLY SIGNED> By: Elvis Gonzalez MD 04/07/18 1437 1733 1803 Elvis Gonzalez MD /cleopatra
[~2018-04-05 14:51] MED LIST changes: +DEMADEX20 MG PO; +LEVAQUIN 750 M750 MG PO; +METOLAZONE 5 MG5 MG PER TUBE; +PERCOCET 10-321 EAC1 PO; +POTASSIUM20 PER TUBE; +PULMICORT0.25 MG/3 INH; +ZOSYN 3.3753.375 GM IV
[2018-04-05 16:38] LABS: HEMOGLOBIN 10.3 gm/dL (12.0-15.0); MCH 23.6 pg (26.0-34.0); MCHC 31.2 g/dL (28.0-37.0); MCV 75.6 fL (80.0-100.0); PLATELET COUNT 371 thou/uL (150-400); RBC 4.36 mil/uL (4.20-5.00); RDW 23.1 % (10.5-14.5); WBC 11.4 thou/uL (4.0-11.0)
[2018-04-05 16:50] LABS: CALCIUM 9.4 mg/dL (8.5-10.1); CREATININE 0.8 mg/dL (0.6-1.0); POTASSIUM 4.3 mmol/L (3.5-5.1)
[2018-04-05 16:56] LABS: ABSOLUTE NEUTROPHILS 6.6 thou/uL (1.4-8.2)
[2018-04-05 16:57] LABS: ANISOCYTOSIS 1+; HYPOCHROMASIA 2+; MICROCYTES 1+; POLYCHROMASIA 1+
[2018-04-05 19:26] VITALS: BP 111/69
== END 2018-04-05 19:30 ==
LOC: ER 14:51
PROVIDERS: Emergency Medicine
DX: J95.03 Malfunction of tracheostomy stoma (principal); J44.9 Chronic obstructive pulmonary disease, unspecified; I11.0 Hypertensive heart disease with heart failure; I50.32 Chronic diastolic (congestive) heart failure; I48.91 Unspecified atrial fibrillation; J96.20 Acute and chronic respiratory failure, unspecified whether with hypoxia or hypercapnia; G47.33 Obstructive sleep apnea (adult) (pediatric); E03.9 Hypothyroidism, unspecified; K21.9 Gastro-esophageal reflux disease without esophagitis; G89.29 Other chronic pain; E66.01 Morbid (severe) obesity due to excess calories; G47.00 Insomnia, unspecified; Z68.41 Body mass index [BMI] 40.0-44.9, adult; Z87.440 Personal history of urinary (tract) infections; Z87.01 Personal history of pneumonia (recurrent); Z88.8 Allergy status to other drugs, medicaments and biological substances

== ENCOUNTER 2018-04-06 08:01 | Inpatient (IN) | payer MEDICARE, OTHER ==
[2018-04-06] VITALS (25 sets, daily range): BP systolic 88–180; BP diastolic 32–99
[~2018-04-06] VITALS: Ht 160 cm; Wt 195.5 kg
--- NOTE | ~2018-04-06 | EKG ---
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: Javier AVALOS : 1975 Requested By: Luis Manuel Malcolm Order Number: [id number] MD: Suleman Mcghee Measurements Intervals [place] Rate: 96 P: 43 [place]: 152 QRS: 31 QRSD: 77 T: 13 QT: 384 QTc: 486 Interpretive Statements Sinus rhythm Abnormal T, consider ischemia, anterior leads Compared to ECG 04/06/2018 08:18:31 T-wave abnormality now present Possible ischemia now present Sinus tachycardia no longer present Ventricular premature complex(es) no longer present ST (T wave) deviation no longer present Electronically Signed On 04-07-2018 11:04:10 CDT by Suleman Mcghee [email or web address] <ELECTRONICALLY SIGNED> By: Suleman Mcghee MD 04/07/18 1104 1439 1439 Suleman Mcghee MD /EPI
--- NOTE | ~2018-04-06 | EKG ---
[address] [address] ELECTROCARDIOGRAM REPORT Name: DAKOTA MOSQUEDA Room #: 246-P ADM IN M.R.#: [id number] Admission: 04/06/18 Attend Phys: Lance Platt MD Discharge: Date of : 79 Report #: [id number] THIS REPORT FOR: //name// [facility] Test Date: 2018-04-07 Test Time: 08:27:54 Pat Name: DAKOTA MOSQUEDA Department: Room: 246 P Gender: F Pharmacy Assistant: ABELINO : 1975 Requested By: Lance Platt Order Number: [id number] MD: Suleman Mcghee Measurements Intervals [place] Rate: 84 P: 40 [place]: 157 QRS: 37 QRSD: 83 T: 40 QT: 435 QTc: 515 Interpretive Statements Sinus rhythm Nonspecific T abnormalities, anterior leads Prolonged QT interval Compared to ECG 04/06/2018 08:18:31 T-wave abnormality now present Prolonged QT interval now present Sinus tachycardia no longer present Ventricular premature complex(es) no longer present ST (T wave) deviation no longer present Electronically Signed On 04-07-2018 11:07:28 CDT by Suleman Mcghee [email or web address] <ELECTRONICALLY SIGNED> By: Suleman Mcghee MD 04/07/18 1107 0827 0827 Suleman Mcghee MD /EPI
--- NOTE | ~2018-04-06 | HC ---
[facility] [address] [place] [address] CONSULTATION Name: DAKOTA MOSQUEDA Room #: 208-P [facility] IN M.R.#: [id number] Admission: 04/06/18 Attend Phys: Lance Platt MD Discharge: Date of : 79 Report #: [id number] THIS REPORT FOR: //name// CC: Lance Platt Rikki Akkulugari DATE OF SERVICE: 04/06/2018 Infectious Disease Consultation REASON FOR CONSULTATION: Possible left-sided pneumonia, hypotension. HISTORY OF PRESENT ILLNESS: A 42-year-old -[place] woman, readmitted one more time to [facility] with respiratory insufficiency failure, chronic tracheostomy, and chronic right internal jugular central venous catheter, morbid obesity, percutaneous gastrostomy with possible aspiration pneumonia. The patient becomes hypotensive. We will treat with hydrocortisone 100 mg stat and some Levophed and intravenous fluids. She has received Levaquin, Zosyn, and Zyvox. PAST MEDICAL HISTORY: Atrial fibrillation, rapid ventricular response, recurrent mucus plugging. Chronic tracheostomy. Morbid obesity. Diastolic congestive heart failure. Decubitus ulceration of coccyx. Right distal femur fracture with status post open reduction internal fixation. Obstructive sleep apnea. Myopathy. Hypothyroidism. Peripheral neuropathy. Recurrent UTIs. Ruano of lower extremities and abdominal wall in the year 2014. DRUG ALLERGIES: MARTINE INHIBITOR, cough. MEDICATIONS: She has received Levaquin 750 IV, has been ordered daily, Zosyn 3.375 grams IV every 8 hours, Zyvox 600 mg times 1 dose. We will give it every 12 hours. We will discontinue antidepressant. She is to receive hydrocortisone 100 mg IV every 8 hours for the first 48-72 hours. She is also on intravenous fluids, lidocaine patch, multivitamin with iron, polyethylene glycol, torsemide, duloxetine, spironolactone, pantoprazole, lactobacillus acidophilus, montelukast, quetiapine fumarate, apixaban, budesonide, gabapentin, and baclofen, p.r.n. acetaminophen, ondansetron, and oxycodone. FAMILY HISTORY: See H and P, old records. SOCIAL HISTORY: See H and P, old records. REVIEW OF SYSTEMS: Unable to obtain. PHYSICAL EXAMINATION: GENERAL: The patient on mechanical ventilator, chronic tracheostomy with [address] [address] CONSULTATION Name: DAKOTA MOSQUEDA Room #: 208-P [facility] IN [facility].#: [id number] Admission: 04/06/18 Attend Phys: Lance Platt MD Discharge: Date of : 79 Report #: [id number] following vital signs. VITAL SIGNS: Afebrile with her blood pressure was stable until recently when it dropped to 70/40. Respirations 28, pulse 108. HEENMT: Pupils reactive. Mouth: Moist mucous membrane. NECK: Tracheostomy. CHEST: Right internal jugular central venous catheter. LUNGS: Decreased breath sounds throughout. HEART: S1, S2. No gallop or murmur. ABDOMEN: Obese, lesions of ruano on abdominal wall and legs. Percutaneous gastrostomy. EXTREMITIES: With edematous feet and pretibial edema. NEUROLOGIC: Unable to evaluate. LABORATORY DATA: Sodium 140, potassium 4.5, glucose 130, albumin 1.5 g/dL. WBC 24,400, hemoglobin 9.5 g/dL with MCV and MCH that are low, possibly iron deficiency anemia. Platelets [id number]. RADIOLOGY EVALUATION: Chest x-ray revealed tracheostomy, right internal jugular central venous catheter, and chronic cardiomegaly and left basilar infiltrates, worse compared to previously. We have obtained a set of venous gases and I will not address that. MICROBIOLOGY DATA: She had had previously Acinetobacter baumannii in sputum, as well as Pseudomonas aeruginosa in sputum. The pseudomonas was sensitive to piperacillin, which actually I think should been reported piperacillin and tazobactam. The organism is intermediate to meropenem, resistant to ciprofloxacin, obviously possibly resistant to levofloxacin, sensitive to tobramycin, amikacin, and gentamicin. ASSESSMENT: 1. Chronic respiratory failure and history of Acinetobacter baumannii and Pseudomonas aeruginosa lower respiratory tract infection. 2. Obstructive sleep apnea. 3. Morbid obesity. 4. Hypoalbuminemia. 5. Anemia of chronic disease. SUGGESTIONS: Recommend triple antibiotic coverage for possible healthcare-associated pneumonia. Start hydrocortisone as soon as possible and we will continue 100 mg IV every 8 hours for 48-[address] Platt, thank you for requesting my suggestions in the care of your patient. <ELECTRONICALLY SIGNED> By: Stan Palmer MD 04/09/18 0941 1321 0429 Stan Palmer MD /nt
--- NOTE | ~2018-04-06 | EKG ---
[facility] [employer] [place] [address] ELECTROCARDIOGRAM REPORT Name: DAKOTA MOSQUEDA [id number] Admission: 04/06/18 Attend Phys: Discharge: Date of : 79 Report #: [id number] THIS REPORT FOR: //name// [facility] ED Test Date: 2018-04-06 Test Time: 08:18:31 Pat Name: DAKOTA MOSQUEDA Department: Room: Gender: F [employer]: ANIL : 1975 Requested By: Marielle Simmons Order Number: [id number] MD: Rosales Carlos Measurements Intervals [place] Rate: 128 P: 60 [place]: 150 QRS: 47 QRSD: 76 T: -29 QT: 302 QTc: 441 Interpretive Statements Sinus tachycardia Multiple ventricular premature complexes Nonspecific ST and T wave abnormality Compared to ECG 03/25/2018 03:56:00 Ventricular premature complex(es) now present T-wave abnormality still present Electronically Signed On 04-06-2018 9:04:26 CDT by Rosales Carlos [email or web address] <ELECTRONICALLY SIGNED> By: Rosales Carlos MD, [facility] 04/06/18 0904 7 7 Rosales Carlos MD, [facility] /EPI
[~2018-04-06 08:01] MED LIST changes: +CYMBALTA30 MG PER TUBE; +ELIQUIS5 MG PER TUBE; -ELIQUIS5 MG PO; +MIRALAX17 GM PER TUBE; -MIRALAX17 GM PO; +PERCOCET 10-321 EAC1 PER TUBE; -PERCOCET 10-321 EAC1 PO; +PROBIOTIC1 EAC1 PER TUBE; -PROBIOTIC1 EAC1 PO; +SEROQUEL 50 MG50 MG PER TUBE; +SINGULAIR 10 MG10 M1 PER TUBE; +UNICOMPLEX M TA1 TA1 PER TUBE
[2018-04-06 08:18] LABS: BE(vivo) -1.7 mmol/L (-2 to +3); HCO3 25.3 mmol/L (22.0-26.0); PCO2 VENOUS 53.4 mmHg (41.0-51.0); PO2 VENOUS 42.2 mmHg (35.0-45.0)
[2018-04-06 08:27] LABS: HEMATOCRIT 31.1 % (37.0-47.0); HEMOGLOBIN 9.5 gm/dL (12.0-15.0); MCH 23.3 pg (26.0-34.0); MCHC 30.6 g/dL (28.0-37.0); MCV 76.3 fL (80.0-100.0); PLATELET COUNT 381 thou/uL (150-400); RBC 4.07 mil/uL (4.20-5.00); RDW 23.6 % (10.5-14.5); WBC 24.4 thou/uL (4.0-11.0)
[2018-04-06 08:35] LABS: ANION GAP 8 mmol/L (7-16); BUN 7 mg/dL (7-18); CHLORIDE 102 mmol/L (98-107); CO2 30 mmol/L (21-32); CREATININE 0.8 mg/dL (0.6-1.0); GLUCOSE 130 mg/dL (74-106); POTASSIUM 4.5 mmol/L (3.5-5.1); SODIUM 140 mmol/L (136-145)
[2018-04-06 08:44] LABS: ALBUMIN 1.5 g/dL (3.4-5.0); SGOT 21 U/L (15-37); SGPT 17 U/L (30-65); TOTAL BILIRUBIN 0.3 mg/dL (<0.1-1.0); TOTAL PROTEIN 6.1 g/dL (6.4-8.2); TROPONIN-I <0.06 ng/mL (<0.06)
[2018-04-06 09:04] LABS: ABSOLUTE NEUTROPHILS 17.8 thou/uL (1.4-8.2); PLATELET ESTIMATE NORMAL
[2018-04-06 09:07] LABS: ANISOCYTOSIS 2+; HYPOCHROMASIA 1+; OVALOCYTES FEW; POIKILOCYTOSIS SLIGHT; POLYCHROMASIA 1+
[2018-04-06 09:08] LABS: MICROCYTES 1+
[2018-04-07] VITALS (77 sets, daily range): BP systolic 74–124; BP diastolic 10–94
[2018-04-07 05:23] LABS: BE(vivo) 6.9 mmol/L (-2 to +3); HCO3 31.8 mmol/L (22.0-26.0); PCO2 47.8 mmHg (35.0-45.0); PO2 69.1 mmHg (80.0-100.0); pH 7.441 (7.360-7.450); sO2 94.3 % (92.0-98.0)
[2018-04-07 05:26] LABS: ABSOLUTE NEUTROPHILS 8.4 thou/uL (1.4-8.2); BASOPHILS 0.8 % (0.0-2.0); EOSINOPHILS 0.1 % (0.0-3.0); HEMATOCRIT 26.2 % (37.0-47.0); HEMOGLOBIN 8.4 gm/dL (12.0-15.0); LYMPHOCYTES 13.9 % (24.0-44.0); MCHC 32.2 g/dL (28.0-37.0); MCV 74.6 fL (80.0-100.0); MONOCYTES 2.8 % (1.0-8.0); POLYS 82.4 % (36.0-66.0); RBC 3.51 mil/uL (4.20-5.00); RDW 23.3 % (10.5-14.5); WBC 10.2 thou/uL (4.0-11.0)
[2018-04-07 05:31] LABS: PLATELET COUNT 284 thou/uL (150-400)
[2018-04-07 05:45] LABS: ALBUMIN 1.5 g/dL (3.4-5.0); CALCIUM 8.2 mg/dL (8.5-10.1); CREATININE 0.9 mg/dL (0.6-1.0); MAGNESIUM 1.6 mg/dL (1.8-2.4); POTASSIUM 4.6 mmol/L (3.5-5.1); TOTAL BILIRUBIN 0.4 mg/dL (<0.1-1.0); TOTAL PROTEIN 5.7 g/dL (6.4-8.2)
[2018-04-07 06:22] LABS: ANISOCYTOSIS 1+; POLYCHROMASIA SLIGHT
[2018-04-08] VITALS (11 sets, daily range): BP systolic 100–132; BP diastolic 62–88
[2018-04-09 04:09] VITALS: BP 127/78
[2018-04-09 04:16] LABS: HEMATOCRIT 26.3 % (37.0-47.0); HEMOGLOBIN 8.4 gm/dL (12.0-15.0); MCH 23.8 pg (26.0-34.0); MCV 74.5 fL (80.0-100.0); RBC 3.53 mil/uL (4.20-5.00); RDW 23.3 % (10.5-14.5); WBC 5.9 thou/uL (4.0-11.0)
[2018-04-09 04:33] LABS: CALCIUM 8.3 mg/dL (8.5-10.1); CREATININE 1.3 mg/dL (0.6-1.0); POTASSIUM 4.4 mmol/L (3.5-5.1)
[2018-04-09 07:12] VITALS: BP 136/91
[2018-04-09 12:25] VITALS: BP 125/92
[2018-04-09 16:34] VITALS: BP 126/78
[2018-04-09 20:30] VITALS: BP 140/92
[2018-04-10 02:05] VITALS: BP 141/94
[2018-04-10 07:58] VITALS: BP 126/75
[2018-04-10 10:47] VITALS: BP 94/59
[2018-04-10 20:17] VITALS: BP 124/87
[2018-04-11 06:02] VITALS: BP 134/87
[2018-04-11 07:41] VITALS: BP 131/92
[2018-04-11 15:31] VITALS: BP 143/88
[2018-04-11 19:54] VITALS: BP 138/94
[2018-04-12 03:32] VITALS: BP 145/95
[2018-04-12 06:32] LABS: HEMATOCRIT 27.7 % (37.0-47.0); HEMOGLOBIN 8.6 gm/dL (12.0-15.0); MCH 23.3 pg (26.0-34.0); MCHC 31.2 g/dL (28.0-37.0); MCV 74.6 fL (80.0-100.0); RBC 3.71 mil/uL (4.20-5.00); RDW 21.7 % (10.5-14.5); WBC 10.5 thou/uL (4.0-11.0)
[2018-04-12 06:45] LABS: CALCIUM 8.6 mg/dL (8.5-10.1); CREATININE 1.2 mg/dL (0.6-1.0); MAGNESIUM 1.7 mg/dL (1.8-2.4); POTASSIUM 3.3 mmol/L (3.5-5.1)
[2018-04-12 07:40] VITALS: BP 137/86
[2018-04-12 12:10] VITALS: BP 132/76
[2018-04-12 15:55] VITALS: BP 140/54
[2018-04-12 17:27] LABS: MAGNESIUM 1.8 mg/dL (1.8-2.4); POTASSIUM 3.8 mmol/L (3.5-5.1)
[2018-04-12 19:18] VITALS: BP 148/98
[2018-04-12 22:45] VITALS: BP 148/98
[2018-04-13 04:34] VITALS: BP 140/89
[2018-04-13 07:20] VITALS: BP 144/81
[2018-04-13 11:50] VITALS: BP 147/82
[2018-04-13] MEDS ORDERED: LINEZOLID600 MG PO (13:23)
[2018-04-13] MEDS ORDERED: PREDNISONE 10 M10 MG PER TUBE (13:26)
[2018-04-13 15:50] VITALS: BP 150/108
[2018-04-13 17:05] VITALS: BP 150/108
== END 2018-04-13 17:38 | disposition short-term general hospital (02) | DRG 871 ==
LOC: ER 08:01 → EROBS 09:12 → ICU 09:12 → 2N 09:12 → ICU 13:36 → EROBS 13:36 → 2N 04-08 06:01 → ICU 04-08 06:01 → 2N 04-08 06:06
PROVIDERS: Internal Medicine; Internal Medicine Pulmonary Disease; Student in an Organized Health Care Education/Training Program
PROC: 5A09557 Assistance with Respiratory Ventilation, Greater than 96 Consecutive Hours, Continuous Positive Airway Pressure (ICD-10-PCS; principal; 2018-04-06)
PROC: 0JH63XZ Insertion of Tunneled Vascular Access Device into Chest Subcutaneous Tissue and Fascia, Percutaneous Approach (ICD-10-PCS; 2018-04-11)
PROC: 02H633Z Insertion of Infusion Device into Right Atrium, Percutaneous Approach (ICD-10-PCS; 2018-04-11)
PROC: B2141ZZ Fluoroscopy of Right Heart using Low Osmolar Contrast (ICD-10-PCS; 2018-04-11)
PROC: B244ZZZ Ultrasonography of Right Heart (ICD-10-PCS; 2018-04-11)
DX: A41.9 Sepsis, unspecified organism (principal); J96.21 Acute and chronic respiratory failure with hypoxia; R65.21 Severe sepsis with septic shock; J96.22 Acute and chronic respiratory failure with hypercapnia; J15.1 Pneumonia due to Pseudomonas; N17.9 Acute kidney failure, unspecified; I50.32 Chronic diastolic (congestive) heart failure; Z68.45 Body mass index [BMI] 70 or greater, adult; E66.2 Morbid (severe) obesity with alveolar hypoventilation; G72.81 Critical illness myopathy; I13.0 Hypertensive heart and chronic kidney disease with heart failure and stage 1 through stage 4 chronic kidney disease, or unspecified chronic kidney disease; Z99.11 Dependence on respirator [ventilator] status; T82.514A Breakdown (mechanical) of infusion catheter, initial encounter; E03.9 Hypothyroidism, unspecified; J44.9 Chronic obstructive pulmonary disease, unspecified; Y83.8 Other surgical procedures as the cause of abnormal reaction of the patient, or of later complication, without mention of misadventure at the time of the procedure; G47.33 Obstructive sleep apnea (adult) (pediatric); D63.8 Anemia in other chronic diseases classified elsewhere; E88.09 Other disorders of plasma-protein metabolism, not elsewhere classified; I48.0 Paroxysmal atrial fibrillation; G89.4 Chronic pain syndrome; K21.9 Gastro-esophageal reflux disease without esophagitis; Y95 Nosocomial condition; F32.9 Major depressive disorder, single episode, unspecified; F41.9 Anxiety disorder, unspecified; N18.9 Chronic kidney disease, unspecified; G60.9 Hereditary and idiopathic neuropathy, unspecified; D64.9 Anemia, unspecified; Z74.01 Bed confinement status; Z93.0 Tracheostomy status; Z93.1 Gastrostomy status; Z79.899 Other long term (current) drug therapy; Z87.81 Personal history of (healed) traumatic fracture; Z91.81 History of falling; Z88.8 Allergy status to other drugs, medicaments and biological substances; Y92.89 Other specified places as the place of occurrence of the external cause; Z23 Encounter for immunization
CPT/HCPCS: 10078; 10081; 10196

== ENCOUNTER 2018-04-16 12:21 | Inpatient (IN) | payer MEDICARE, OTHER ==
[~2018-04-16] VITALS: Ht 152.4 cm; Wt 190.5 kg
--- NOTE | ~2018-04-16 | EKG ---
[place] [address] 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
[2018-04-16 12:21] VITALS: BP 73/56
[~2018-04-16 12:21] MED LIST changes: +PREDNISONE 10 M10 MG PER TUBE
[2018-04-16 13:13] LABS: ABSOLUTE NEUTROPHILS 9.4 thou/uL (1.4-8.2); BASOPHILS 1.1 % (0.0-2.0); EOSINOPHILS 0.7 % (0.0-3.0); HEMOGLOBIN 10.3 gm/dL (12.0-15.0); LYMPHOCYTES 26.2 % (24.0-44.0); MCH 23.3 pg (26.0-34.0); MCHC 31.3 g/dL (28.0-37.0); MCV 74.5 fL (80.0-100.0); MONOCYTES 4.4 % (1.0-8.0); PLATELET COUNT 334 thou/uL (150-400); POLYS 67.6 % (36.0-66.0); RBC 4.43 mil/uL (4.20-5.00); RDW 22.3 % (10.5-14.5)
[2018-04-16 13:17] LABS: ANION GAP 7 mmol/L (7-16); BUN 14 mg/dL (7-18); CALCIUM 9.2 mg/dL (8.5-10.1); CHLORIDE 101 mmol/L (98-107); CO2 36 mmol/L (21-32); CREATININE 0.8 mg/dL (0.6-1.0); GLUCOSE 126 mg/dL (74-106); POTASSIUM 3.9 mmol/L (3.5-5.1); SODIUM 144 mmol/L (136-145)
[2018-04-16 13:23] LABS: BE(vivo) 6.6 mmol/L (-2 to +3); HCO3 33.8 mmol/L (22.0-26.0); PCO2 VENOUS 62.5 mmHg (41.0-51.0); PO2 VENOUS 40.4 mmHg (35.0-45.0)
[2018-04-16 13:26] LABS: MAGNESIUM 1.2 mg/dL (1.8-2.4); SGOT 24 U/L (15-37); SGPT 20 U/L (30-65); TOTAL BILIRUBIN 0.5 mg/dL (<0.1-1.0); TOTAL PROTEIN 6.5 g/dL (6.4-8.2); TROPONIN-I <0.06 ng/mL (<0.06)
[2018-04-16 13:28] LABS: ANISOCYTOSIS 1+; HYPOCHROMASIA 1+
[2018-04-16 14:29] VITALS: BP 129/92
[2018-04-16] MEDS ORDERED: DIGITEK125 MC1 PER TUBE (14:35)
[2018-04-16] MEDS ORDERED: FUROSEMIDE 40 M40 M1 PER TUBE (15:58)
[2018-04-16 16:05] VITALS: BP 126/86
[2018-04-16 16:45] VITALS: BP 153/97
[2018-04-16 18:20] LABS: HEMATOCRIT 32.1 % (37.0-47.0); HEMOGLOBIN 9.8 gm/dL (12.0-15.0); MCH 22.7 pg (26.0-34.0); MCHC 30.5 g/dL (28.0-37.0); MCV 74.2 fL (80.0-100.0); RBC 4.32 mil/uL (4.20-5.00); RDW 21.6 % (10.5-14.5); WBC 11.2 thou/uL (4.0-11.0)
[2018-04-16 18:26] LABS: CALCIUM 9.3 mg/dL (8.5-10.1); CREATININE 0.8 mg/dL (0.6-1.0)
[2018-04-16 20:28] VITALS: BP 138/88
[2018-04-16 23:52] VITALS: BP 108/69
[2018-04-17 04:31] VITALS: BP 131/80
[2018-04-17 08:05] VITALS: BP 128/82
[2018-04-17 11:55] VITALS: BP 124/78
[2018-04-17 16:20] VITALS: BP 150/96
[2018-04-17 19:39] VITALS: BP 136/88
[2018-04-18 05:20] VITALS: BP 175/95
[2018-04-18 06:48] LABS: ABSOLUTE NEUTROPHILS 6.7 thou/uL (1.4-8.2); BASOPHILS 0.2 % (0.0-2.0); EOSINOPHILS 3.2 % (0.0-3.0); HEMATOCRIT 27.9 % (37.0-47.0); HEMOGLOBIN 8.8 gm/dL (12.0-15.0); LYMPHOCYTES 40.2 % (24.0-44.0); MCH 23.7 pg (26.0-34.0); MCHC 31.6 g/dL (28.0-37.0); MCV 74.9 fL (80.0-100.0); MONOCYTES 7.9 % (1.0-8.0); PLATELET COUNT 222 thou/uL (150-400); POLYS 48.5 % (36.0-66.0); RBC 3.72 mil/uL (4.20-5.00); RDW 22.5 % (10.5-14.5); WBC 13.8 thou/uL (4.0-11.0)
[2018-04-18 06:57] LABS: CALCIUM 8.7 mg/dL (8.5-10.1); POTASSIUM 3.7 mmol/L (3.5-5.1)
[2018-04-18 07:34] LABS: ANISOCYTOSIS 3+
[2018-04-18 07:35] LABS: HYPOCHROMASIA 1+; MICROCYTES 2+
[2018-04-18] MEDS ORDERED: DEMADEX20 MG PO (09:07)
[2018-04-18] MEDS ORDERED: ELIQUIS5 MG PO (09:07)
[2018-04-18 09:37] VITALS: BP 148/89
[2018-04-18 11:14] VITALS: BP 106/58
[2018-04-18 15:38] VITALS: BP 119/74
[2018-04-18 20:09] VITALS: BP 134/78
[2018-04-19 01:02] LABS: CALCIUM 8.2 mg/dL (8.5-10.1); CREATININE 0.8 mg/dL (0.6-1.0); POTASSIUM 3.3 mmol/L (3.5-5.1)
[2018-04-19 01:21] LABS: ABSOLUTE NEUTROPHILS 5.5 thou/uL (1.4-8.2); BASOPHILS 1.7 % (0.0-2.0); EOSINOPHILS 4.5 % (0.0-3.0); HEMATOCRIT 25.7 % (37.0-47.0); HEMOGLOBIN 8.2 gm/dL (12.0-15.0); LYMPHOCYTES 36.7 % (24.0-44.0); MCH 23.7 pg (26.0-34.0); MCV 74.2 fL (80.0-100.0); MONOCYTES 9.9 % (1.0-8.0); PLATELET COUNT 170 thou/uL (150-400); POLYS 47.2 % (36.0-66.0); RBC 3.46 mil/uL (4.20-5.00); RDW 21.9 % (10.5-14.5); WBC 11.6 thou/uL (4.0-11.0)
[2018-04-19 04:02] VITALS: BP 138/86
[2018-04-19 08:27] VITALS: BP 149/86
[2018-04-19 11:18] VITALS: BP 102/58
[2018-04-19] MEDS ORDERED: PERCOCET 10-321 EAC1 PER TUBE (12:17)
[2018-04-19] MEDS ORDERED: LYRICA 50 MG50 MG PO (12:17)
[2018-04-19] MEDS ORDERED: GABAPENTIN 100100 MG PO (12:17)
[2018-04-19 15:10] VITALS: BP 123/75
[2018-04-19 16:44] VITALS: BP 123/75
== END 2018-04-19 18:50 | DRG 871 ==
LOC: ER 12:21 → 2N 14:26 → EROBS 14:26 → 2N 16:30
PROVIDERS: Emergency Medicine; Hospitalist
PROC: 5A09457 Assistance with Respiratory Ventilation, 24-96 Consecutive Hours, Continuous Positive Airway Pressure (ICD-10-PCS; principal; 2018-04-16)
DX: A41.9 Sepsis, unspecified organism (principal); J96.21 Acute and chronic respiratory failure with hypoxia; J96.22 Acute and chronic respiratory failure with hypercapnia; J18.9 Pneumonia, unspecified organism; I50.33 Acute on chronic diastolic (congestive) heart failure; J98.11 Atelectasis; Z68.45 Body mass index [BMI] 70 or greater, adult; E66.2 Morbid (severe) obesity with alveolar hypoventilation; G72.81 Critical illness myopathy; T17.890A Other foreign object in other parts of respiratory tract causing asphyxiation, initial encounter; I11.0 Hypertensive heart disease with heart failure; J44.9 Chronic obstructive pulmonary disease, unspecified; G47.33 Obstructive sleep apnea (adult) (pediatric); D64.9 Anemia, unspecified; I27.20 Pulmonary hypertension, unspecified; Y95 Nosocomial condition; L89.159 Pressure ulcer of sacral region, unspecified stage; G62.9 Polyneuropathy, unspecified; G89.4 Chronic pain syndrome; E03.9 Hypothyroidism, unspecified; K21.9 Gastro-esophageal reflux disease without esophagitis; F32.9 Major depressive disorder, single episode, unspecified; I48.0 Paroxysmal atrial fibrillation; I35.0 Nonrheumatic aortic (valve) stenosis; D63.8 Anemia in other chronic diseases classified elsewhere; E87.8 Other disorders of electrolyte and fluid balance, not elsewhere classified; E86.0 Dehydration; X58.XXXA Exposure to other specified factors, initial encounter; Y93.89 Activity, other specified; Y92.89 Other specified places as the place of occurrence of the external cause; Y99.8 Other external cause status; Z79.01 Long term (current) use of anticoagulants; Z87.81 Personal history of (healed) traumatic fracture; Z93.1 Gastrostomy status; Z93.0 Tracheostomy status; Z79.899 Other long term (current) drug therapy; Z88.8 Allergy status to other drugs, medicaments and biological substances; Z23 Encounter for immunization
CPT/HCPCS: 10081

== ENCOUNTER 2018-05-09 07:31 | Inpatient (IN) | payer MEDICARE, OTHER ==
[~2018-05-09] VITALS: Ht 165.1 cm; Wt 172.4 kg
[2018-05-09] VITALS (7 sets, daily range): BP systolic 110–136; BP diastolic 57–87
--- NOTE | ~2018-05-09 | HC ---
[facility] [place] [address] CONSULTATION Name: DAKOTA MOSQUEDA Room #: 350-[facility] IN M.R.#: [id number] Admission: 05/09/18 Attend Phys: Kurt Case MD Discharge: 05/12/18 Date of : 79 Report #: [id number] THIS REPORT FOR: //name// CC: Kurt Brandt Akkulugari DATE OF SERVICE: 05/10/2018 CHIEF COMPLAINT: Sacral gluteal ulcerations and axillary intertrigo. HISTORY OF PRESENT ILLNESS: This is a 43-year-old female patient with whom I am familiar from previous hospitalization. She has history of super morbid obesity, respiratory failure requiring tracheostomy. She has had multiple recurring ulcerations that are most likely shearing related to her sacral gluteal region. The patient is awake today. She is somewhat somnolent, does state that she has some pain in her sacral gluteal region, but states that her underarm areas are much improved. PAST MEDICAL HISTORY: Includes acute on chronic respiratory failure, previous closed right femoral fracture, intertrigo, super morbid obesity, pneumonia, respiratory failure, tracheostomy, urinary tract infections, gluteal, sacral and thigh ulcerations. CURRENT MEDICATIONS: Include Tylenol, ipratropium and albuterol, baclofen, budesonide, Coreg, Digitek, diphenhydramine, enoxaparin, Neurontin, Glucagon, Synthroid, lidocaine, melatonin, Singulair, Unicomplex, Percocet, Lyrica, Seroquel, spironolactone, torsemide, venlafaxine. ALLERGIES: MARTINE INHIBITORS. FAMILY HISTORY: Noncontributory. SOCIAL HISTORY: The patient lives in a long-term care facility. She has requirements for tracheostomy. PHYSICAL EXAMINATION: VITAL SIGNS: At this time include temperature 96.7, pulse 63, respiratory rate 19, blood pressure 119/82. GENERAL: This is a chronically ill-appearing female patient who appears to be mostly somnolent, but no distress. HEENT: Head normocephalic. Nose is clear. NECK: Demonstrates tracheostomy. LUNGS: Diminished. HEART: Regular rhythm. ABDOMEN: Soft, obese. There is minimal intertrigo in the axillary region, is clear bilaterally. The sacral gluteal region demonstrates multiple areas of [facility] [address] [place] [address] CONSULTATION Name: DAKOTA MOSQUEDA Room #: [facility] IN M.R.#: [id number] Admission: 05/09/18 Attend Phys: Kurt Case MD Discharge: 05/12/18 Date of : 79 Report #: [id number] superficial breakdown that is more likely to be related to moisture-associated dermatitis, as well as shearing elbow. EXTREMITIES: Lower extremities are without obvious ulceration at this time. NEUROLOGIC: The patient does appear to have symmetrical motor exam. LABORATORY DATA: Include sodium 139, potassium 3.8, chloride 100, CO2 36, BUN 17, creatinine 1.2, glucose 108, albumin is markedly low at 1.6. White blood cell count 8000, hemoglobin 10.6. CLINICAL IMPRESSION: 1. Sacral gluteal ulceration related to moisture-associated dermatitis and shearing. 2. History of axillary intertrigo, which appears to be mostly resolved. 3. Respiratory failure, requiring tracheostomy. 4. Severe protein-calorie malnutrition. 5. Super morbid obesity. RECOMMENDATIONS: At this point in time, we will recommend zinc oxide based barrier cream to the sacral gluteal region. She will need a bariatric low air loss mattress, q. 2 hour turning and repositioning. She will need aggressive nutritional support. I appreciate being asked to see her in consultation. <ELECTRONICALLY SIGNED> By: Jalil Li MD 05/14/18 0754 0011 0213 Jalil Li MD /nt
--- NOTE | ~2018-05-09 | EKG ---
[facility] [place] [address] ELECTROCARDIOGRAM REPORT Name: DAKOTA MOSQUEDA Room #: [facility] Kamara#: [id number] Admission: 05/09/18 Attend Phys: Discharge: Date of : 79 Report #: [id number] THIS REPORT FOR: //name// [facility] ED Test Date: 2018-05-09 Test Time: 07:46:00 Pat Name: DAKOTA MOSQUEDA Department: Room: Gender: F Pt Escort: : 1975 Requested By: Luis Enrique Ahuja Order Number: [id number] MD: Rosales Carlos Measurements Intervals [place] Rate: 57 P: 88 GA: 167 QRS: 42 QRSD: 91 T: 26 QT: 425 QTc: 414 Interpretive Statements Sinus rhythm with sinus arrhythmia Nonspecific ST and T wave segment abnormality Compared to ECG 04/16/2018 13:25:39 Heart rate has slowed Electronically Signed On 05-09-2018 9:14:16 TRAVELING SECRETARY by Rosales Carlos [email or web address] <ELECTRONICALLY SIGNED> By: Rosales Carlos MD, [facility] 05/09/18 0914 0746 0746 Rosales Carlos MD, FACC /EPI
[~2018-05-09 07:31] MED LIST changes: +DIGITEK125 MC1 PER TUBE; +ELIQUIS5 MG PO; +FUROSEMIDE 40 M40 M1 PER TUBE; +LYRICA 50 MG50 MG PO; +TYLENOL325 MG PER TUBE; -TYLENOL325 MG PO
[2018-05-09] MEDS ORDERED: SINGULAIR 10 MG10 M1 PER TUBE (07:45)
[2018-05-09] MEDS ORDERED: LIORESAL 10 MG10 MG PER TUBE (07:52)
[2018-05-09] MEDS ORDERED: COREG6.25 MG PER TUBE (07:53)
[2018-05-09] MEDS ORDERED: NEURONTIN600 MG PER TUBE (07:54)
[2018-05-09] MEDS ORDERED: SYNTHROID50 MCG PER TUBE (07:54)
[2018-05-09] MEDS ORDERED: LYRICA 50 MG50 MG PER TUBE (07:55)
[2018-05-09] MEDS ORDERED: DEMADEX20 MG PER TUBE (07:56)
[2018-05-09] MEDS ORDERED: SPIRONOLACTONE25 M1 PER TUBE (07:56)
[2018-05-09 07:58] LABS: BE(vivo) 13.6 mmol/L (-2 to +3); PO2 264.4 mmHg (80.0-100.0); pH 7.372 (7.360-7.450); sO2 99.6 % (92.0-98.0)
[2018-05-09 07:59] LABS: PCO2 73.9 mmHg (35.0-45.0)
[2018-05-09 08:40] LABS: BASOPHILS 1.4 % (0.0-2.0); EOSINOPHILS 4.6 % (0.0-3.0); HEMOGLOBIN 11.1 gm/dL (12.0-15.0); LYMPHOCYTES 25.9 % (24.0-44.0); MCH 22.9 pg (26.0-34.0); MCHC 31.7 g/dL (28.0-37.0); MCV 72.3 fL (80.0-100.0); MONOCYTES 8.8 % (1.0-8.0); PLATELET COUNT 299 thou/uL (150-400); POLYS 59.3 % (36.0-66.0); RBC 4.84 mil/uL (4.20-5.00); RDW 20.5 % (10.5-14.5); WBC 6.7 thou/uL (4.0-11.0)
[2018-05-09 08:47] LABS: ANION GAP 4 mmol/L (7-16); BUN 14 mg/dL (7-18); CALCIUM 8.5 mg/dL (8.5-10.1); CHLORIDE 99 mmol/L (98-107); CO2 34 mmol/L (21-32); CREATININE 0.8 mg/dL (0.6-1.0); GLUCOSE 99 mg/dL (74-106); POTASSIUM 3.8 mmol/L (3.5-5.1); SODIUM 137 mmol/L (136-145)
[2018-05-09 08:55] LABS: ALBUMIN 1.6 g/dL (3.4-5.0); MAGNESIUM 1.4 mg/dL (1.8-2.4); SGOT 48 U/L (15-37); SGPT 21 U/L (30-65); TOTAL BILIRUBIN 0.4 mg/dL (<0.1-1.0); TROPONIN-I <0.06 ng/mL (<0.06)
[2018-05-09 09:37] LABS: ANISOCYTOSIS 1+; HYPOCHROMASIA 2+; MICROCYTES 1+; TARGET CELLS OCCASIONAL
[2018-05-10 03:14] VITALS: BP 99/57
[2018-05-10 06:21] LABS: HEMATOCRIT 33.9 % (37.0-47.0); HEMOGLOBIN 10.6 gm/dL (12.0-15.0); MCH 22.6 pg (26.0-34.0); MCHC 31.3 g/dL (28.0-37.0); MCV 72.4 fL (80.0-100.0); RBC 4.69 mil/uL (4.20-5.00); RDW 20.7 % (10.5-14.5)
[2018-05-10 06:35] LABS: CALCIUM 8.8 mg/dL (8.5-10.1); CREATININE 1.2 mg/dL (0.6-1.0); POTASSIUM 3.8 mmol/L (3.5-5.1)
[2018-05-10 07:11] VITALS: BP 118/60
[2018-05-10 16:12] VITALS: BP 116/77
[2018-05-10 19:41] VITALS: BP 119/82
[2018-05-11 04:39] VITALS: BP 132/70
[2018-05-11 07:40] VITALS: BP 169/74
[2018-05-11 12:06] VITALS: BP 112/75
[2018-05-11 16:14] VITALS: BP 145/76
[2018-05-11 19:40] VITALS: BP 116/75
[2018-05-12 03:50] VITALS: BP 112/70
[2018-05-12 07:53] VITALS: BP 138/74
[2018-05-12 11:40] VITALS: BP 88/46
[2018-05-12 16:45] VITALS: BP 102/59
== END 2018-05-12 18:03 | DRG 291 ==
LOC: ER 07:31 → EROBS 09:11 → 3W 09:11
PROVIDERS: Emergency Medicine; Hospitalist
PROC: 5A09357 Assistance with Respiratory Ventilation, Less than 24 Consecutive Hours, Continuous Positive Airway Pressure (ICD-10-PCS; principal; 2018-05-09)
PROC: 5A09357 Assistance with Respiratory Ventilation, Less than 24 Consecutive Hours, Continuous Positive Airway Pressure (ICD-10-PCS; 2018-05-10)
PROC: 5A09357 Assistance with Respiratory Ventilation, Less than 24 Consecutive Hours, Continuous Positive Airway Pressure (ICD-10-PCS; 2018-05-11)
PROC: 5A09357 Assistance with Respiratory Ventilation, Less than 24 Consecutive Hours, Continuous Positive Airway Pressure (ICD-10-PCS; 2018-05-12)
DX: I11.0 Hypertensive heart disease with heart failure (principal); J96.22 Acute and chronic respiratory failure with hypercapnia; E43 Unspecified severe protein-calorie malnutrition; I50.33 Acute on chronic diastolic (congestive) heart failure; E87.2 Acidosis; J44.1 Chronic obstructive pulmonary disease with (acute) exacerbation; G72.81 Critical illness myopathy; J44.0 Chronic obstructive pulmonary disease with (acute) lower respiratory infection; E27.40 Unspecified adrenocortical insufficiency; Z68.44 Body mass index [BMI] 60.0-69.9, adult; I48.91 Unspecified atrial fibrillation; E66.01 Morbid (severe) obesity due to excess calories; G47.00 Insomnia, unspecified; G47.33 Obstructive sleep apnea (adult) (pediatric); E03.9 Hypothyroidism, unspecified; K21.9 Gastro-esophageal reflux disease without esophagitis; F41.9 Anxiety disorder, unspecified; F32.9 Major depressive disorder, single episode, unspecified; E88.09 Other disorders of plasma-protein metabolism, not elsewhere classified; E83.42 Hypomagnesemia; L30.9 Dermatitis, unspecified; E11.42 Type 2 diabetes mellitus with diabetic polyneuropathy; Y95 Nosocomial condition; G89.4 Chronic pain syndrome; R13.10 Dysphagia, unspecified; E11.649 Type 2 diabetes mellitus with hypoglycemia without coma; L89.152 Pressure ulcer of sacral region, stage 2; L89.322 Pressure ulcer of left buttock, stage 2; L89.312 Pressure ulcer of right buttock, stage 2; Z87.440 Personal history of urinary (tract) infections; Z87.81 Personal history of (healed) traumatic fracture; Z79.899 Other long term (current) drug therapy; Z93.1 Gastrostomy status; Z93.0 Tracheostomy status; Z79.52 Long term (current) use of systemic steroids; Z87.01 Personal history of pneumonia (recurrent)
CPT/HCPCS: 10879

== ENCOUNTER 2018-05-16 21:14 | Inpatient (IN) | payer MEDICARE, OTHER ==
[~2018-05-16] VITALS: Ht 165.1 cm; Wt 179.2 kg
--- NOTE | ~2018-05-16 | EKG ---
[place] [address] [facility] [place] [address] ELECTROCARDIOGRAM REPORT Name: DAKOTA MOSQUEDA Room #: 354-P ADM IN M.R.#: [id number] Admission: 05/16/18 Attend Phys: Surinder Bhatt MD Discharge: Date of : 79 Report #: [id number] THIS REPORT FOR: //name// [facility] ED Test Date: 2018-05-16 Test Time: 21:59:12 Pat Name: DAKOTA MOSQUEDA Department: Room: 354 Gender: F Central Services Tech: EMEKA : 1975 Requested By: Luis Enrique Ahuja Order Number: [id number] MD: Rosales Carlos Measurements Intervals [place] Rate: 62 P: 43 [place]: 160 QRS: 54 QRSD: 81 T: -7 QT: 379 QTc: 385 Interpretive Statements Sinus rhythm Nonspecific ST and T abnormalities Baseline wander in lead(s) V5,V6 Compared to ECG 05/09/2018 07:46:00 No significant change was found Electronically Signed On 05-17-2018 8:36:08 PAPER STEAMER by Rosales Carlos [email or web address] <ELECTRONICALLY SIGNED> By: Rosales Carlos MD, [facility] 05/17/18 0836 2159 2159 Rosales Carlos MD, [facility] /EPI
--- NOTE | ~2018-05-16 | HC ---
[facility] [place] [address] CONSULTATION Name: DAKOTA MOSQUEDA Room #: 354-P [facility] IN M.R.#: [id number] Admission: 05/16/18 Attend Phys: Lance Platt MD Discharge: 05/22/18 Date of : 79 Report #: [id number] THIS REPORT FOR: //name// CC: Lance Platt Rikki Akkulugari DATE OF SERVICE: 05/22/2018 CONSULTATION REQUESTED BY: Lance Platt MD REASON FOR CONSULTATION: Multiple drug resistant Pseudomonas aeruginosa in sputum. HISTORY OF PRESENT ILLNESS: The patient is a 43-year-old woman, frequently admitted to [facility] with respiratory failure, chronic tracheostomy, morbid obesity. The patient was found this time to have multiple drug resistant Pseudomonas aeruginosa in sputum, resistant to all tested antibiotics. She is on meropenem. She also had a couple of blood cultures, which by the way were obtained exactly the same time, making interpretation of findings rather difficult. She is on vancomycin for this. The patient is somnolent and unable to provide information. All information is gathered from review of her records. PAST MEDICAL HISTORY: Morbid obesity. Chronic tracheostomy and respiratory failure. Percutaneous gastrostomy. Stage 2-3 sacral decubitus. Fractured tibia. Critical care myopathy. Profound weakness. Hypertension. Chronic pain syndrome. Congestive heart failure. SOCIAL HISTORY: See H and P, old records. FAMILY HISTORY: See H and P, old records. DRUG ALLERGIES: MARTINE INHIBITORS. MEDICATIONS: She is on treatment with vancomycin that had been put on hold. She is also receiving meropenem to which the pseudomonas in sputum is completely resistant, we will discontinue it. She is on Benadryl, Atrovent inhalation treatment, enoxaparin, acetylcysteine, guaifenesin, montelukast, triamcinolone acetonide topical, alteplase p.r.n., pregabalin, torsemide, spironolactone, digoxin, polyethylene glycol, lactobacillus acidophilus, quetiapine fumarate, levothyroxine, budesonide, pantoprazole, gabapentin, baclofen, p.r.n. oxycodone, ondansetron, p.r.n. fentanyl. PHYSICAL EXAMINATION: GENERAL: Chronically ill-appearing, somnolent, morbidly obese woman. VITAL SIGNS: Afebrile since admission, temperature 97.7, pulse 80, respirations [address] [address] CONSULTATION Name: DAKOTA MOSQUEDA Room #: 354-P [facility] IN [facility].#: [id number] Admission: 05/16/18 Attend Phys: Lance Platt MD Discharge: 05/22/18 Date of : 79 Report #: [id number], BP 101/68, weight 395 pounds, height 5 feet 5 inches. HEENMT: Pupils, I am not able to examine. NECK: Tracheostomy in place, left internal jugular central venous catheter. LUNGS: Decreased breath sounds, crackles left base posteriorly. HEART: S1, S2. No gallop. ABDOMEN: Percutaneous gastrostomy. Obese, soft, no masses or megaly. EXTREMITIES: Lesions of ruano on the thighs and abdominal wall, remote. Edema to the feet and ankles. NEUROLOGIC: Unable to evaluate. LABORATORY DATA: Revealed the following abnormals: CO2 of 33, BUN 24, magnesium 1.7, alkaline phosphatase 152, albumin 1.2. WBC 12.4, hemoglobin 8.9, white blood cell count differential normal. Vancomycin random levels were elevated. MICROBIOLOGY DATA: Blood cultures were obtained on 05/16/2018, both dated 2236 hours consequently; I suspect it was a single stick. This is identified as Staphylococcus epidermidis sensitive to vancomycin DEBRA 2. The patient also has Pseudomonas aeruginosa in sputum and the germ is resistant to most tested antibiotics, but ticarcillin. She previously had MRSA in the sputum. RADIOLOGY EVALUATION: Tracheostomy, cardiomegaly, right and left basilar atelectasis, chronic left infiltrate. ASSESSMENT: 1. Chronic respiratory failure, tracheostomy, ventilator dependent. 2. Morbid obesity. 3. Multiple drug resistant Pseudomonas aeruginosa in sputum. 4. Hypoalbuminemia. 5. Anemia. SUGGESTIONS: Recommend discontinue vancomycin, discontinue meropenem. We will request Microbiology try to perform sensitivity of pseudomonas again, Avycaz and Zerbaxa as well as colistin if they are able to. I will contact pharmacy to see if they carry Timentin. Discontinue vancomycin in view of renal insufficiency and add Zyvox. Dr. Platt, thank you for requesting my suggestions. <ELECTRONICALLY SIGNED> By: Stan Palmer MD 05/23/18 [phone] 1110 Stan Palmer MD /nt
[~2018-05-16 21:14] MED LIST changes: +COREG6.25 MG PER TUBE; +DEMADEX20 MG PER TUBE; +LIORESAL 10 MG10 MG PER TUBE; +NEURONTIN600 MG PER TUBE; +SPIRONOLACTONE25 M1 PER TUBE; +SYNTHROID50 MCG PER TUBE
[2018-05-16 21:15] VITALS: BP 117/65
[2018-05-16 21:33] LABS: BE(vivo) 13.6 mmol/L (-2 to +3); HCO3 40.3 mmol/L (22.0-26.0); PCO2 64.2 mmHg (35.0-45.0); PO2 65.4 mmHg (80.0-100.0); pH 7.416 (7.360-7.450); sO2 92.5 % (92.0-98.0)
[2018-05-16 21:58] LABS: HEMATOCRIT 30.9 % (37.0-47.0); HEMOGLOBIN 9.7 gm/dL (12.0-15.0); MCH 22.6 pg (26.0-34.0); MCHC 31.3 g/dL (28.0-37.0); MCV 72.1 fL (80.0-100.0); PLATELET COUNT 190 thou/uL (150-400); RBC 4.28 mil/uL (4.20-5.00); RDW 20.8 % (10.5-14.5); WBC 18.3 thou/uL (4.0-11.0)
[2018-05-16 22:10] LABS: ANION GAP 4 mmol/L (7-16); BUN 28 mg/dL (7-18); CALCIUM 8.6 mg/dL (8.5-10.1); CHLORIDE 96 mmol/L (98-107); CO2 37 mmol/L (21-32); CREATININE 1.2 mg/dL (0.6-1.0); GLUCOSE 97 mg/dL (74-106); POTASSIUM 4.8 mmol/L (3.5-5.1); SODIUM 137 mmol/L (136-145)
[2018-05-16 22:11] LABS: APTT 32.7 Seconds (24.5-32.8); INR 1.1; PROTIME 11.4 Seconds (9.3-11.4)
[2018-05-16 22:18] LABS: ALBUMIN 1.1 g/dL (3.4-5.0); MAGNESIUM 2.1 mg/dL (1.8-2.4); SGOT 19 U/L (15-37); SGPT 16 U/L (30-65); TOTAL BILIRUBIN 0.3 mg/dL (<0.1-1.0); TOTAL PROTEIN 5.9 g/dL (6.4-8.2); TROPONIN-I <0.06 ng/mL (<0.06)
[2018-05-16 22:35] LABS: ABSOLUTE NEUTROPHILS 11.2 thou/uL (1.4-8.2); ANISOCYTOSIS 2+; ATYPICAL LYMPHS 4 %; HYPOCHROMASIA 2+; LARGE PLATELETS FEW; MICROCYTES 1+
[2018-05-16 22:36] LABS: OVALOCYTES FEW; POLYCHROMASIA OCCASIONAL
[2018-05-16 23:01] VITALS: BP 117/65
[2018-05-16 23:16] VITALS: BP 127/107
[2018-05-16 23:55] VITALS: BP 96/50
[2018-05-17 06:02] LABS: HEMOGLOBIN 9.2 gm/dL (12.0-15.0); MCHC 30.6 g/dL (28.0-37.0); MCV 72.1 fL (80.0-100.0); RBC 4.16 mil/uL (4.20-5.00)
[2018-05-17 06:11] LABS: URINE BILIRUBIN NEGATIVE (Negative); URINE BLOOD NEGATIVE (Negative); URINE CLARITY CLEAR; URINE COLOR YELLOW; URINE GLUCOSE-RANDOM* NEGATIVE (Negative); URINE KETONES NEGATIVE (Negative); URINE NITRITE-REFLEX NEGATIVE (Negative); URINE PROTEIN (DIPSTICK) NEGATIVE (Negative); URINE UROBILINOGEN 0.2 E.U./dl (0.2-1.0)
[2018-05-17 06:16] LABS: URINE LEUKOCYTES-REFLEX 1+ (Negative)
[2018-05-17 06:19] LABS: MUCUS None Seen strn/LPF (None Seen); SQUAMOUS None Seen /LPF (0-3)
[2018-05-17 06:20] LABS: CASTS None Seen /LPF (None Seen); URINE WBC-REFLEX 0-5 Rare /HPF (0-5)
[2018-05-17 06:22] LABS: URINE RBC 0-2 Rare /HPF (0-2)
[2018-05-17 06:25] LABS: BACTERIA-REFLEX None Seen /HPF (None Seen); CRYSTALS None Seen /LPF (None Seen)
[2018-05-17 06:56] LABS: CALCIUM 8.6 mg/dL (8.5-10.1); CREATININE 1.2 mg/dL (0.6-1.0); POTASSIUM 4.6 mmol/L (3.5-5.1)
[2018-05-17 07:40] VITALS: BP 98/52
[2018-05-17 11:58] VITALS: BP 99/65
[2018-05-17 16:03] VITALS: BP 100/83
[2018-05-17 19:00] VITALS: BP 100/61
[2018-05-18 04:27] VITALS: BP 106/71
[2018-05-18 06:00] LABS: HEMATOCRIT 28.4 % (37.0-47.0); HEMOGLOBIN 8.9 gm/dL (12.0-15.0); MCH 22.9 pg (26.0-34.0); MCHC 31.4 g/dL (28.0-37.0); MCV 73.1 fL (80.0-100.0); PLATELET COUNT 201 thou/uL (150-400); RBC 3.88 mil/uL (4.20-5.00); RDW 20.7 % (10.5-14.5); WBC 13.5 thou/uL (4.0-11.0)
[2018-05-18 06:14] LABS: CALCIUM 8.6 mg/dL (8.5-10.1); CREATININE 1.2 mg/dL (0.6-1.0); POTASSIUM 4.5 mmol/L (3.5-5.1)
[2018-05-18 07:17] LABS: BE(vivo) 10.7 mmol/L (-2 to +3); HCO3 37.1 mmol/L (22.0-26.0); PCO2 60.9 mmHg (35.0-45.0); pH 7.403 (7.360-7.450); sO2 88.2 % (92.0-98.0)
[2018-05-18 07:20] LABS: PO2 55.8 mmHg (80.0-100.0)
[2018-05-18 07:51] VITALS: BP 93/51
[2018-05-18 07:54] LABS: ABSOLUTE NEUTROPHILS 7.3 thou/uL (1.4-8.2); PLATELET ESTIMATE NORMAL
[2018-05-18 07:56] LABS: ANISOCYTOSIS 2+
[2018-05-18 07:57] LABS: HYPOCHROMASIA 1+; MICROCYTES 1+
[2018-05-18 07:58] LABS: LARGE PLATELETS RARE; OVALOCYTES OCCASIONAL
[2018-05-18 11:47] VITALS: BP 81/39
[2018-05-18 14:43] LABS: URINE BILIRUBIN NEGATIVE (Negative); URINE BLOOD TRACE (Negative); URINE CLARITY CLOUDY; URINE COLOR YELLOW; URINE GLUCOSE-RANDOM* NEGATIVE (Negative); URINE KETONES NEGATIVE (Negative); URINE NITRITE-REFLEX NEGATIVE (Negative); URINE PROTEIN (DIPSTICK) NEGATIVE (Negative); URINE SPECIFIC GRAVITY <= 1.005 (1.005-1.035); URINE UROBILINOGEN 0.2 E.U./dl (0.2-1.0)
[2018-05-18 14:44] LABS: URINE LEUKOCYTES-REFLEX 3+ (Negative)
[2018-05-18 15:01] LABS: BACTERIA-REFLEX >30 Many /HPF (None Seen); SQUAMOUS 0-3 Few /LPF (0-3); URINE WBC-REFLEX >25 Many /HPF (0-5)
[2018-05-18 15:02] LABS: CASTS None Seen /LPF (None Seen); TRANSITIONAL EPITHEL CELL 0-3 Few /LPF (None Seen); URINE RBC 0-2 Rare /HPF (0-2)
[2018-05-18 15:04] LABS: CALCIUM OXALATE 0-3 Few /LPF (None Seen)
[2018-05-18 15:35] VITALS: BP 113/64
[2018-05-18 19:15] VITALS: BP 90/51
[2018-05-19 02:53] VITALS: BP 93/52
[2018-05-19 06:11] LABS: HEMATOCRIT 29.1 % (37.0-47.0); HEMOGLOBIN 8.9 gm/dL (12.0-15.0); MCH 22.5 pg (26.0-34.0); MCHC 30.5 g/dL (28.0-37.0); MCV 73.8 fL (80.0-100.0); PLATELET COUNT 232 thou/uL (150-400); RBC 3.94 mil/uL (4.20-5.00); RDW 21.2 % (10.5-14.5); WBC 12.8 thou/uL (4.0-11.0)
[2018-05-19 06:23] LABS: ALBUMIN 1.2 g/dL (3.4-5.0); CALCIUM 8.6 mg/dL (8.5-10.1); POTASSIUM 4.2 mmol/L (3.5-5.1); TOTAL BILIRUBIN 0.3 mg/dL (<0.1-1.0); TOTAL PROTEIN 5.9 g/dL (6.4-8.2)
[2018-05-19 06:50] LABS: ABSOLUTE NEUTROPHILS 6.8 thou/uL (1.4-8.2)
[2018-05-19 06:51] LABS: ANISOCYTOSIS 2+; HYPOCHROMASIA 2+; MICROCYTES 1+; POLYCHROMASIA SLIGHT
[2018-05-19 07:55] VITALS: BP 87/53
[2018-05-19 11:53] VITALS: BP 101/61
[2018-05-19 14:59] VITALS: BP 114/66
[2018-05-19 20:00] VITALS: BP 124/89
[2018-05-20 04:30] VITALS: BP 112/62
[2018-05-20 07:41] VITALS: BP 103/42
[2018-05-20 11:56] VITALS: BP 86/47
[2018-05-20 15:53] VITALS: BP 89/46
[2018-05-21 02:19] LABS: ALBUMIN 1.2 g/dL (3.4-5.0); CALCIUM 7.7 mg/dL (8.5-10.1); CREATININE 0.8 mg/dL (0.6-1.0); MAGNESIUM 1.7 mg/dL (1.8-2.4); TOTAL BILIRUBIN 0.2 mg/dL (<0.1-1.0); TOTAL PROTEIN 5.2 g/dL (6.4-8.2)
[2018-05-21 02:37] LABS: HEMATOCRIT 28.5 % (37.0-47.0); HEMOGLOBIN 8.9 gm/dL (12.0-15.0); MCH 22.7 pg (26.0-34.0); MCHC 31.2 g/dL (28.0-37.0); MCV 72.8 fL (80.0-100.0); RBC 3.92 mil/uL (4.20-5.00); RDW 20.4 % (10.5-14.5); WBC 12.4 thou/uL (4.0-11.0)
[2018-05-21 02:49] LABS: PLATELET COUNT 323 thou/uL (150-400)
[2018-05-21 03:46] LABS: ABSOLUTE NEUTROPHILS 6.4 thou/uL (1.4-8.2)
[2018-05-21 03:47] LABS: HYPOCHROMASIA 2+; PLATELET ESTIMATE NORMAL; POLYCHROMASIA 1+
[2018-05-21 03:48] LABS: ANISOCYTOSIS 2+; MICROCYTES 2+
[2018-05-21 05:18] VITALS: BP 117/62
[2018-05-21 08:11] VITALS: BP 110/72
[2018-05-21 11:48] VITALS: BP 106/71
[2018-05-21 16:39] VITALS: BP 110/72
[2018-05-21 19:49] VITALS: BP 95/44
[2018-05-22 03:36] VITALS: BP 98/48
[2018-05-22 07:50] VITALS: BP 101/68
[2018-05-22 11:21] VITALS: BP 124/59
[2018-05-22 16:30] VITALS: BP 122/78
[2018-05-22] MEDS ORDERED: LINEZOLID600 MG PO (16:40)
[2018-05-22 16:48] VITALS: BP 122/78
== END 2018-05-22 19:01 | DRG 871 ==
LOC: ER 21:14 → EROBS 22:36 → 3W 22:36
PROVIDERS: Emergency Medicine; Internal Medicine; Nurse Practitioner Acute Care
PROC: 5A1935Z Respiratory Ventilation, Less than 24 Consecutive Hours (ICD-10-PCS; principal; 2018-05-16)
PROC: 5A09357 Assistance with Respiratory Ventilation, Less than 24 Consecutive Hours, Continuous Positive Airway Pressure (ICD-10-PCS; 2018-05-17)
PROC: 5A09357 Assistance with Respiratory Ventilation, Less than 24 Consecutive Hours, Continuous Positive Airway Pressure (ICD-10-PCS; 2018-05-18)
PROC: 5A09357 Assistance with Respiratory Ventilation, Less than 24 Consecutive Hours, Continuous Positive Airway Pressure (ICD-10-PCS; 2018-05-19)
PROC: 5A1935Z Respiratory Ventilation, Less than 24 Consecutive Hours (ICD-10-PCS; 2018-05-19)
PROC: 5A09357 Assistance with Respiratory Ventilation, Less than 24 Consecutive Hours, Continuous Positive Airway Pressure (ICD-10-PCS; 2018-05-20)
PROC: 5A09357 Assistance with Respiratory Ventilation, Less than 24 Consecutive Hours, Continuous Positive Airway Pressure (ICD-10-PCS; 2018-05-21)
PROC: 5A09357 Assistance with Respiratory Ventilation, Less than 24 Consecutive Hours, Continuous Positive Airway Pressure (ICD-10-PCS; 2018-05-22)
DX: A41.89 Other specified sepsis (principal); J96.21 Acute and chronic respiratory failure with hypoxia; E43 Unspecified severe protein-calorie malnutrition; J96.22 Acute and chronic respiratory failure with hypercapnia; I50.33 Acute on chronic diastolic (congestive) heart failure; J15.1 Pneumonia due to Pseudomonas; G93.41 Metabolic encephalopathy; G72.81 Critical illness myopathy; J98.11 Atelectasis; E66.2 Morbid (severe) obesity with alveolar hypoventilation; E27.3 Drug-induced adrenocortical insufficiency; Z68.44 Body mass index [BMI] 60.0-69.9, adult; Z99.11 Dependence on respirator [ventilator] status; I48.91 Unspecified atrial fibrillation; I11.0 Hypertensive heart disease with heart failure; J44.9 Chronic obstructive pulmonary disease, unspecified; E03.9 Hypothyroidism, unspecified; K21.9 Gastro-esophageal reflux disease without esophagitis; D64.9 Anemia, unspecified; T38.0X5A Adverse effect of glucocorticoids and synthetic analogues, initial encounter; G89.4 Chronic pain syndrome; Z16.24 Resistance to multiple antibiotics; S30.810A Abrasion of lower back and pelvis, initial encounter; X58.XXXA Exposure to other specified factors, initial encounter; F32.9 Major depressive disorder, single episode, unspecified; F41.9 Anxiety disorder, unspecified; Z93.0 Tracheostomy status; Z87.81 Personal history of (healed) traumatic fracture; Z79.899 Other long term (current) drug therapy; Z88.8 Allergy status to other drugs, medicaments and biological substances; Y92.89 Other specified places as the place of occurrence of the external cause; Y93.89 Activity, other specified; Y99.8 Other external cause status
CPT/HCPCS: 10879

== ENCOUNTER 2018-06-01 01:37 | Emergency (ER) | payer MEDICARE, OTHER ==
[~2018-06-01] VITALS: Ht 165.1 cm; Wt 176.9 kg
[2018-06-01 01:38] VITALS: BP 130/79
== END 2018-06-01 02:36 | disposition short-term general hospital (02) ==
LOC: ER 01:37
DX: Z43.1 Encounter for attention to gastrostomy (principal); I48.91 Unspecified atrial fibrillation; E66.01 Morbid (severe) obesity due to excess calories; I11.0 Hypertensive heart disease with heart failure; I50.30 Unspecified diastolic (congestive) heart failure; J44.9 Chronic obstructive pulmonary disease, unspecified; G47.00 Insomnia, unspecified; G47.33 Obstructive sleep apnea (adult) (pediatric); E03.9 Hypothyroidism, unspecified; K21.9 Gastro-esophageal reflux disease without esophagitis; F41.9 Anxiety disorder, unspecified; F32.9 Major depressive disorder, single episode, unspecified; G89.4 Chronic pain syndrome; Z87.891 Personal history of nicotine dependence; Z88.8 Allergy status to other drugs, medicaments and biological substances; Z68.44 Body mass index [BMI] 60.0-69.9, adult

== ENCOUNTER 2018-07-08 20:57 | Emergency (ER) | payer MEDICARE, OTHER ==
[~2018-07-08] VITALS: Ht 162.6 cm; Wt 181.4 kg
--- NOTE | ~2018-07-08 | EKG ---
[facility] [place] [address] ELECTROCARDIOGRAM REPORT Name: DAKOTA MOSQUEDA Room #: [facility] M.RJuancarlos#: [id number] Admission: Attend Phys: Discharge: Date of : 79 Report #: [id number] THIS REPORT FOR: //name// [facility] ED Test Date: 2018-07-08 Test Time: 21:01:37 Pat Name: DAKOTA MOSQUEDA Department: Room: Gender: F Grip Wrapper: OG : 1975 Requested By: Marielle Simmons Order Number: [id number] MD: Measurements Intervals [place] Rate: 85 P: 60 [place]: 160 QRS: 35 QRSD: 80 T: 196 QT: 298 QTc: 355 Interpretive Statements Sinus rhythm Repol abnrm suggests ischemia, diffuse leads Compared to ECG 05/16/2018 21:59:12 Early repolarization now present Possible ischemia now present T-wave abnormality no longer present [email or web address] By: 00 00 Epiphany Epiphany, MD /EPI
[2018-07-08 21:29] LABS: ABSOLUTE NEUTROPHILS 9.3 thou/uL (1.4-8.2); BASOPHILS 0.7 % (0.0-2.0); HEMATOCRIT 35.7 % (37.0-47.0); HEMOGLOBIN 11.2 gm/dL (12.0-15.0); MCH 22.3 pg (26.0-34.0); MCHC 31.5 g/dL (28.0-37.0); MCV 70.6 fL (80.0-100.0); MONOCYTES 9.6 % (1.0-8.0); PLATELET COUNT 307 thou/uL (150-400); POLYS 73.7 % (36.0-66.0); RBC 5.05 mil/uL (4.20-5.00); RDW 20.1 % (10.5-14.5); WBC 12.6 thou/uL (4.0-11.0)
[2018-07-08 21:35] LABS: ANION GAP 6 mmol/L (7-16); BUN 14 mg/dL (7-18); CALCIUM 9.1 mg/dL (8.5-10.1); CHLORIDE 96 mmol/L (98-107); CO2 34 mmol/L (21-32); CREATININE 1.3 mg/dL (0.6-1.0); GLUCOSE 95 mg/dL (74-106); POTASSIUM 3.7 mmol/L (3.5-5.1); SODIUM 136 mmol/L (136-145)
[2018-07-08 21:45] LABS: ALBUMIN 1.8 g/dL (3.4-5.0); SGOT 51 U/L (15-37); SGPT 19 U/L (30-65); TOTAL BILIRUBIN 0.4 mg/dL (<0.1-1.0); TOTAL PROTEIN 7.5 g/dL (6.4-8.2); TROPONIN-I <0.06 ng/mL (<0.06)
[2018-07-08] MEDS ORDERED: LYRICA 50 MG50 MG PER TUBE (21:50)
[2018-07-08] MEDS ORDERED: DIGOXIN125 MCG PER TUBE (21:53)
[2018-07-08] MEDS ORDERED: [UNRECOGNIZED DRUG - SUPPLY] TOP (21:55)
[2018-07-08] MEDS ORDERED: ZUPLENZ4 MG PO (22:00)
[2018-07-08] MEDS ORDERED: ACID CONTROL150 MG PER TUBE ×2 (22:13)
[2018-07-08] MEDS ORDERED: BENADRYL25 MG PER TUBE (22:16)
[2018-07-08] MEDS ORDERED: ROBITUSSIN100 MG/53 PER TUBE (22:17)
[2018-07-08 22:39] LABS: ANISOCYTOSIS 2+; HYPOCHROMASIA 2+; MICROCYTES 1+; POLYCHROMASIA 1+
[2018-07-09 00:32] VITALS: BP 122/72
[2018-07-09] MEDS ORDERED: ZUPLENZ4 MG PO (07:20)
[2018-07-09] MEDS ORDERED: SYNTHROID50 MCG PO ×2 (07:22)
[2018-07-09] MEDS ORDERED: KEFLEX500 M1 PO (07:53)
== END 2018-07-09 00:32 ==
LOC: ER 20:57
PROVIDERS: Student in an Organized Health Care Education/Training Program
DX: R12 Heartburn (principal); I48.91 Unspecified atrial fibrillation; E66.01 Morbid (severe) obesity due to excess calories; J44.9 Chronic obstructive pulmonary disease, unspecified; G47.33 Obstructive sleep apnea (adult) (pediatric); K21.9 Gastro-esophageal reflux disease without esophagitis; F41.9 Anxiety disorder, unspecified; F32.9 Major depressive disorder, single episode, unspecified; E03.9 Hypothyroidism, unspecified; G89.4 Chronic pain syndrome; A41.9 Sepsis, unspecified organism; I11.0 Hypertensive heart disease with heart failure; I50.32 Chronic diastolic (congestive) heart failure; Z68.44 Body mass index [BMI] 60.0-69.9, adult; Z87.440 Personal history of urinary (tract) infections; Z87.891 Personal history of nicotine dependence; Z88.8 Allergy status to other drugs, medicaments and biological substances

== ENCOUNTER 2018-07-09 06:57 | Emergency (ER) | payer OTHER ==
[~2018-07-09] VITALS: Ht 162.6 cm; Wt 181.4 kg
[~2018-07-09 06:57] MED LIST changes: +ACID CONTROL150 MG PER TUBE; +BENADRYL25 MG PER TUBE; +DIGOXIN125 MCG PER TUBE; +ROBITUSSIN100 MG/53 PER TUBE; +ZUPLENZ4 MG PO; +[UNRECOGNIZED DRUG - SUPPLY] TOP
[2018-07-09] MEDS ORDERED: ZUPLENZ4 MG PO (07:20)
[2018-07-09] MEDS ORDERED: SYNTHROID50 MCG PO ×2 (07:22)
[2018-07-09 07:41] LABS: URINE BILIRUBIN NEGATIVE (Negative); URINE CLARITY CLOUDY; URINE COLOR STRAW; URINE GLUCOSE-RANDOM* NEGATIVE (Negative); URINE KETONES NEGATIVE (Negative); URINE PROTEIN (DIPSTICK) 1+ (Negative); URINE SPECIFIC GRAVITY 1.005 (1.005-1.035)
[2018-07-09 07:42] LABS: URINE BLOOD 3+ (Negative); URINE LEUKOCYTES-REFLEX 3+ (Negative); URINE NITRITE-REFLEX NEGATIVE (Negative); URINE UROBILINOGEN 0.2 E.U./dl (0.2-1.0)
[2018-07-09 07:45] LABS: BACTERIA-REFLEX >30 Many /HPF (None Seen); CASTS None Seen /LPF (None Seen); SQUAMOUS 0-3 Few /LPF (0-3); URINE WBC-REFLEX >25 Many /HPF (0-5)
[2018-07-09 07:46] LABS: AMORPHOUS PHOSPHATES Moderate /LPF (None Seen)
[2018-07-09] MEDS ORDERED: KEFLEX500 M1 PO (07:53)
[2018-07-09 09:06] VITALS: BP 95/51
== END 2018-07-09 09:07 ==
LOC: ER 06:57
PROVIDERS: Emergency Medicine
DX: T83.511A Infection and inflammatory reaction due to indwelling urethral catheter, initial encounter (principal); I48.91 Unspecified atrial fibrillation; E66.01 Morbid (severe) obesity due to excess calories; Z68.44 Body mass index [BMI] 60.0-69.9, adult; I11.0 Hypertensive heart disease with heart failure; I50.32 Chronic diastolic (congestive) heart failure; J44.9 Chronic obstructive pulmonary disease, unspecified; E03.9 Hypothyroidism, unspecified; K21.9 Gastro-esophageal reflux disease without esophagitis; F41.9 Anxiety disorder, unspecified; F32.9 Major depressive disorder, single episode, unspecified; Z87.891 Personal history of nicotine dependence; Z88.8 Allergy status to other drugs, medicaments and biological substances

== ENCOUNTER 2018-07-17 14:41 | Inpatient (IN) | payer OTHER ==
[~2018-07-17] VITALS: Ht 167.6 cm; Wt 163.0 kg
[~2018-07-17 14:41] MED LIST changes: +KEFLEX500 M1 PO
[2018-07-17 14:45] VITALS: BP 124/65
--- NOTE | 2018-07-17 14:56 | NUR ---
RESPIRATORY AT BEDSIDE TO ASSESS AND SET UP TRACH OX
[2018-07-17 15:53] LABS: BE(vivo) 6.3 mmol/L (-2 to +3); HCO3 32.8 mmol/L (22.0-26.0); PCO2 55.5 mmHg (35.0-45.0); PO2 57.7 mmHg (80.0-100.0); pH 7.389 (7.360-7.450); sO2 89.2 % (92.0-98.0)
[2018-07-17 15:58] LABS: ABSOLUTE NEUTROPHILS 5.3 thou/uL (1.4-8.2); BASOPHILS 1.8 % (0.0-2.0); HEMATOCRIT 37.7 % (37.0-47.0); HEMOGLOBIN 12.3 gm/dL (12.0-15.0); LYMPHOCYTES 26.1 % (24.0-44.0); MCHC 32.6 g/dL (28.0-37.0); MCV 70.5 fL (80.0-100.0); PLATELET COUNT 303 thou/uL (150-400); POLYS 56.1 % (36.0-66.0); RBC 5.34 mil/uL (4.20-5.00); RDW 19.7 % (10.5-14.5); WBC 9.5 thou/uL (4.0-11.0)
[2018-07-17 16:05] LABS: ANION GAP 5 mmol/L (7-16); BUN 28 mg/dL (7-18); CALCIUM 8.9 mg/dL (8.5-10.1); CHLORIDE 95 mmol/L (98-107); CO2 32 mmol/L (21-32); CREATININE 1.5 mg/dL (0.6-1.0); GLUCOSE 81 mg/dL (74-106); POTASSIUM 3.8 mmol/L (3.5-5.1); SODIUM 132 mmol/L (136-145)
[2018-07-17 16:12] LABS: ALBUMIN 1.6 g/dL (3.4-5.0); APTT 29.9 Seconds (24.5-32.8); INR 1.1; PROTIME 11.7 Seconds (9.3-11.4); SGOT 42 U/L (15-37); SGPT 16 U/L (30-65); TOTAL BILIRUBIN 0.4 mg/dL (<0.1-1.0); TOTAL PROTEIN 7.6 g/dL (6.4-8.2); TROPONIN-I <0.06 ng/mL (<0.06)
[2018-07-17 16:30] LABS: MICROCYTES 1+
[2018-07-17 16:31] LABS: HYPOCHROMASIA SLIGHT; POLYCHROMASIA OCCASIONAL
--- NOTE | 2018-07-17 17:17 | EKG ---
[address] [address] ELECTROCARDIOGRAM REPORT Name: JAYLINDAKOTA Room #: 170-9 ADM IN M.R.#: [id number] Admission: 07/17/18 Attend Phys: Surinder Bhatt MD Discharge: Date of : 79 Report #: [id number] THIS REPORT FOR: //name// [facility] ED Test Date: 2018-07-17 Test Time: 15:08:10 Pat Name: DAKOTA MOSQUEDA Department: Room: 170 Gender: F Director Of Flight Operations: AMARILYS : 1975 Requested By: Luis Enrique Ahuja Order Number: [id number] MD: Enio Palmer Measurements Intervals [place] Rate: 72 P: 18 ND: 165 QRS: 34 QRSD: 82 T: 194 QT: 333 QTc: 365 Interpretive Statements Sinus rhythm Nonspecific repol abnormality, diffuse leads Compared to ECG 07/08/2018 21:01:37 Early repolarization now present ST (T wave) deviation no longer present Electronically Signed On 07-17-2018 17:17:37 TINWARE LITHOGRAPH PRESS OPERATOR by Enio Palmer [email or web address] <ELECTRONICALLY SIGNED> By: Enio Palmer MD 07/17/18 1717 1508 1508 Enio Palmre MD /EPI
[2018-07-17 19:49] VITALS: BP 88/49
[2018-07-17 20:16] VITALS: BP 105/57
[2018-07-17 20:45] VITALS: BP 111/73
[2018-07-18 05:33] VITALS: BP 122/72
[2018-07-18 05:34] LABS: ABSOLUTE NEUTROPHILS 6.3 thou/uL (1.4-8.2); BASOPHILS 1.1 % (0.0-2.0); EOSINOPHILS 1.7 % (0.0-3.0); HEMATOCRIT 36.1 % (37.0-47.0); HEMOGLOBIN 11.3 gm/dL (12.0-15.0); LYMPHOCYTES 21.3 % (24.0-44.0); MCH 22.3 pg (26.0-34.0); MCHC 31.4 g/dL (28.0-37.0); MCV 71.1 fL (80.0-100.0); MONOCYTES 7.9 % (1.0-8.0); PLATELET COUNT 292 thou/uL (150-400); RBC 5.07 mil/uL (4.20-5.00); RDW 19.8 % (10.5-14.5); WBC 9.3 thou/uL (4.0-11.0)
[2018-07-18 05:51] LABS: ANION GAP 7 mmol/L (7-16); BUN 28 mg/dL (7-18); CALCIUM 8.8 mg/dL (8.5-10.1); CHLORIDE 96 mmol/L (98-107); CO2 31 mmol/L (21-32); CREATININE 1.6 mg/dL (0.6-1.0); GLUCOSE 79 mg/dL (74-106); MAGNESIUM 1.9 mg/dL (1.8-2.4); POTASSIUM 3.5 mmol/L (3.5-5.1); SODIUM 134 mmol/L (136-145); TROPONIN-I <0.06 ng/mL (<0.06)
--- NOTE | 2018-07-18 06:30 | NUR ---
ADMITTED FROM ER VIA CART. MAX ASSIST X 4 WITH SLING FROM RESIDENTIAL UNDERNEATH HER. OPENS EYES TO VERBAL STIMULI, CAN NOD HEAD YES OR NO TO QUESTIONS. DROWSY, SLEPT THRU NIGHT. REDRESSED PICC LINE DRESSING LEFT CHEST, DRESSING FROM NH DISLODGED. C/O GENERALIZED DISCOMFORT, RESPONDED WELL TO PRN OXYCODONE GIVEN BY G TUBE. TRACH WITH MASK, SUCTIONED PRN.
[2018-07-18 07:59] VITALS: BP 106/63
--- NOTE | 2018-07-18 10:02 | NUR ---
ASSESSMENT: CM REVIEWED CHART AND MET WITH PATIENT AT THE BEDSIDE. PT IS WELL KNOWN TO [facility]. PT HAS HX TRACH/PEG AND IS LTC RESIDENT AT [facility]. PT WAS ADMITTED WITH CHF/RESPIRATORY FAILURE. CM SPOKE WITH DANIEL AT [facility] AND FAXED UPDATED CLINICAL TO [facility]. CM ALSO SPOKE WITH PATIENTS MOTHER SHRUTHI WHO STATES SHE IS WORKING ON TAKING PATIENTS BIPAP PATIENT HAD AT HOME TO [facility] SO SHE CAN USE IT THERE. PLANS ARE FOR PATIENT TO RETURN TO [facility] ONCE MEDICALLY STABLE. CM WILL CONTINUE TO FOLLOW TO ASSIST NEEDED.
[2018-07-18 10:54] VITALS: BP 120/71
--- NOTE | 2018-07-18 13:20 | NUR ---
Once tube feeding restarted, recommend jevity 1.5, 80ml/hr x 12 hrs. Recommend add beneprotein with water flushes once IVF discontinued and water flushes ordered.
--- NOTE | 2018-07-18 17:22 | NUR ---
ASSUMED PATIENT CARE AT 0700. ALERT. DROWSY. SUCTION NEEDS. PATIENT HAS TWO LOOSE STOOL. VSS. TOLERATED ON 50% FIO2 VANDANA NAIR. POOR APPETITE. WILL START TF AT 1900. SLOWLY TOWARDS POC GOALS.
[2018-07-18 20:45] VITALS: BP 138/76
[2018-07-18 22:54] VITALS: BP 115/67
--- NOTE | 2018-07-19 01:55 | NUR ---
2300 - PT TRANSFERRED TO IN NAD AND IN AN UNREMARKABLE MANNER. DENIED NEEDS AND STATES NO COMPLAINTS.
[2018-07-19 04:09] VITALS: BP 112/56
[2018-07-19 08:34] VITALS: BP 104/53
[2018-07-19 11:33] LABS: CALCIUM 8.7 mg/dL (8.5-10.1); CREATININE 1.6 mg/dL (0.6-1.0); POTASSIUM 3.5 mmol/L (3.5-5.1)
[2018-07-19 13:05] VITALS: BP 110/68
[2018-07-19 16:12] VITALS: BP 137/65
[2018-07-19 16:30] VITALS: BP 123/77
--- NOTE | 2018-07-19 17:32 | HC ---
[facility] [place] [address] CONSULTATION Name: DAKOTA MOSQUEDA Room #: 217-P ADM IN M.R.#: [id number] Admission: 07/17/18 Attend Phys: Surinder Bhatt MD Discharge: Date of : 79 Report #: [id number] THIS REPORT FOR: //name// CC: Surinder Bhatt [facility] REFERRAL PHYSICIAN: Dr. Bhatt. REASON FOR REFERRAL: Ktqrv-za-tyvlrxc respiratory failure, pneumonia. HISTORY OF PRESENT ILLNESS: The patient is a 43-year-old -Micronesian female well known to the pulmonary service, brought to the Emergency Room with dyspnea. She is felt to have heart failure. A pulmonary consultation was requested. The patient was last hospitalized in 05/2018 for similar presentation. She has chronic hypoxic respiratory failure due to morbid obesity, obesity hypoventilation syndrome, sleep apnea and has a chronic trach. She has a history of COPD along with progressive weakness felt to be related to critical care myopathy. She has had recurrent respiratory tract infections in the past due to underlying condition. Presently, she appears weak, somnolent, arousable. She states that she is short of breath and does not feel well. PAST MEDICAL HISTORY: As mentioned above, chronic respiratory failure due to morbid obesity, MARILYN, obesity hypoventilation syndrome, chronic tracheostomy, COPD, adrenal insufficiency, weakness, debility due to critical care myopathy, hypotension, chronic heart failure, chronic pain syndrome and on chronic narcotics, depression, anxiety, pressure ulcer involving her coccyx, history of right distal femur fracture, hypertension, hypothyroidism, gastroesophageal reflux disease, chronic lower extremity wounds. PAST SURGICAL HISTORY: As mentioned above. ALLERGIES: MARTINE INHIBITORS, which CAUSES COUGH. MEDICATIONS: Reviewed, in the MAR. FAMILY HISTORY: Noncontributory. SOCIAL HISTORY: The patient has smoked in the past, quit a few years ago. No past history of alcohol abuse. She resides at [facility]. [address] [address] CONSULTATION Name: DAKOTA MOSQUEDA Room #: [address] [place] [address] [place] [facility].#: [id number] Admission: 07/17/18 Attend Phys: Surinder Bhatt MD Discharge: Date of : 79 Report #: [id number] REVIEW OF SYSTEMS: As mentioned above, otherwise deferred as the patient is not quite alert to answer questions. PHYSICAL EXAMINATION: GENERAL: She is arousable, appears somnolent, weak. VITAL SIGNS: Temperature is 97.9 degrees Fahrenheit, pulse is 65, respiratory rate is 16, blood pressure 120/70 mmHg, saturation is 95%. HEENT: Normocephalic, atraumatic. NECK: Supple, without any lymphadenopathy or thyromegaly, status post tracheostomy. CHEST: Breath sounds are fair due to poor effort, decreased in the bases. CARDIOVASCULAR: Distant heart sounds. No obvious murmur or gallop. Pulses are 2+/4+ bilaterally. BREASTS: Exam deferred. ABDOMEN: Obese, soft, nontender, no organomegaly or masses felt. GENITOURINARY: Deferred. RECTAL: Deferred. EXTREMITIES: 1-2+ bilateral pretibial edema. No cyanosis or clubbing. NEUROLOGIC: As mentioned above. She appears somnolent, but arousable. LABORATORY DATA: Chest x-ray shows chronic interstitial changes that are mild, no new infiltrates seen. Sodium 134, potassium 3.5, chloride 96, CO2 is 31, BUN is 28, creatinine is 1.6. Liver enzymes are mildly abnormal. Arterial blood gas revealed pH 7.38, pCO2 of 55, pO2 57 on FiO2 40%. WBC 9500, no evidence of bandemia. Albumin 1.9. IMPRESSION: 1. Progressive dyspnea in this 43-year-old -Micronesian female with multiple medical problems. Chest x-ray shows no significant changes. The patient is felt to have heart failure. Unclear if the patient has recurrent respiratory tract infection. Chronic obstructive pulmonary disease is likely contributing. 2. Acute kidney injury, baseline creatinine had been 1.1. 3. Iulka-ws-qflwaxx hypercapnic hypoxic respiratory failure due to morbid obesity, obstructive sleep apnea, obesity hypoventilation syndrome, status post chronic trach. The patient would benefit from nocturnal positive pressure ventilation given pulmonary problems. 4. Encephalopathy, likely toxic and metabolic. 5. Progressive debility and weakness due to critical care myopathy. 6. Cbejn-uq-olwfoov diastolic heart failure. 7. Hypertension. 8. Depression and anxiety disorder. 9. Chronic pain. 10. History of adrenal insufficiency. 11. History of chronic obstructive pulmonary disease. [address] [address] CONSULTATION Name: DAKOTA MOSQUEDA Room #: 217-P [facility] IN ..#: [id number] Admission: 07/17/18 Attend Phys: Surinder Bhatt MD Discharge: Date of : 79 Report #: [id number] RECOMMENDATIONS: Okay with gentle diuresis, wean O2 for saturation 90%. If respiratory status worsens with progressive hypoxia, the patient will benefit from positive pressure ventilation given that she has a chronic trach. This is particularly helpful in this patient with severe obesity, weakness along with sleep apnea and obesity hypoventilation syndrome. DVT and GI prophylaxis recommended. Thank you for this consultation. <ELECTRONICALLY SIGNED> By: Wayne Veronica MD 07/19/18 1732 1851 1038 Wayne Veronica MD /nt
--- NOTE | 2018-07-19 18:34 | NUR ---
PT CARE ASSUMED APPROX 0700. PT DROWST BUT ORIENTED X4. C/O PAIN AND SOA INTERMITTENTLY. PAIN MANAGED WITH OXY/ACETAMINOPHEN. PT GETTING BREATHING TXs TO RESOLVE SOA. O2 SAT WNL. T-MASK IN PLACE THIS SHIFT. PT REFUSING TURNS SOMETIMES. INCONT OF STOOL. PAIZ PATENT. VSS. BS WNL. PEG CLAMPED PER ORDER AT THIS TIME. S/T EVALUATED PT FOR LUNCH, NO DIET CHANGES NOTED. PT APPETITE POOR. PT WAS APHASIC THIS EVENING AND SLIGHTLY CONFUSED. PT ALSO C/O VISION PROBLEMS, AND EARS TINGLING AND FEELING UNDER WATER. DR CRESPO NOTIFIED AND ORDERED NARCAN. NARCAN MADE PT MORE ALERT MOMENTARILY BUT DID NOT HELP INABILITY TO SPEAK. ABG ORDERED. WILL F/U. VS REMAIND WNL.
[2018-07-19 20:21] VITALS: BP 130/96
--- NOTE | 2018-07-19 20:45 | NUR ---
2000 - PT LAYING IN BED IN NAD. SHE WAS DIFFICULT TO ROUSE BUT DID ROUSE AND STAYED AWAKE. C/O SOB. RT TO BEDSIDE TO ASSESS AND SUCTION. RT TOO PERFOEM AN ABG. PER RTSHAYY, HER CURRENT PRESENTATION IS CONSISTANT WITH HIS HISTORY OF HER.
[2018-07-20 04:30] VITALS: BP 136/72
[2018-07-20 06:35] LABS: HEMATOCRIT 35.2 % (37.0-47.0); HEMOGLOBIN 11.3 gm/dL (12.0-15.0); MCH 22.9 pg (26.0-34.0); MCHC 32.2 g/dL (28.0-37.0); MCV 71.3 fL (80.0-100.0); RBC 4.94 mil/uL (4.20-5.00); RDW 19.8 % (10.5-14.5); WBC 7.4 thou/uL (4.0-11.0)
[2018-07-20 06:54] LABS: CALCIUM 9.1 mg/dL (8.5-10.1); CREATININE 1.4 mg/dL (0.6-1.0); POTASSIUM 3.4 mmol/L (3.5-5.1)
[2018-07-20 07:57] VITALS: BP 114/65
[2018-07-20 10:38] VITALS: BP 110/55
[2018-07-20] MEDS ORDERED: TORSEMIDE20 MG PO (12:34)
--- NOTE | 2018-07-20 12:37 | NUR ---
ON-GOING ASSESSMENT: CM REVIEWED CHART AND SPOKE WITH ATTENDING. PATIENT HAS ORDERS TO DISCHARGE BACK TO [facility] TODAY. CM ORDERED CHART COPY AND CONTACTED [employer] FURNACE TENDER. CM NOTIFIED [employer] OPER[employer] WHO IS ARRANGING TRANSPORTATION WELL FAXING ORDERS. CM SPOKE WITH LIASON AT [facility] ABOUT DISCHARGE AND THAT PATIENT IS NEEDING A BIPAP AT NIGHTTIME AND NEEDS TO MAKE SURE THIS IS ARRANGED PRIOR TO PATIENT COMING BACK. CM FAXED NEW SCRIPT FOR BIPAP TO [facility]. DANIEL THE LIASON STATING THEY ARE ABLE TO GET THE BIPAP THERE TODAY FOR HER TO USE TONIGHT AND CONFIRMED THIS IS DONE. CM REACHED OUT TO PATIENTS MOTHER SHRUTHI AND HAD LENGTHY CONVERSATION. SHE IS WORRIED ABOUT THE BIPAP NOT BEING THERE FOR HER AT BEDTIME. CM DISCUSSED THAT [facility] ASSURED IT IS. CM REACHED OUT TO LIASON TO SEE IF THEY COULD CALL PATIENTS MOTHER TO HELP ASSURE HER AND CORTES AGREED TO CALL HER. CM MET WITH PATIENT AT THE BEDSIDE AND SHE IS AGREEABLE. PT AND MOTHER REPORT NO FURTHER QUESTIONS FROM CM AT THIS TIME.
--- NOTE | 2018-07-20 13:24 | NUR ---
PT. DISCHARGING BACK TO [facility] FAXED DC ORDERS/SUMMARY TO FACILITY AND SPOKE WITH ANDREEA IN ADM. SHE RECEIVED DC ORDERS. DCP ARRANGED TRANSPORT VIA [facility] THROUGH [facility] TRIP #[phone] FOR 1330 TODAY. NOTIFIED MOTHER OF DISCHARGE AND TIME OF TRANSPORT. UNIT NOTIFIED OF TIME AND CHART COPY PER US. RN TO CALL REPORT TO [phone].
--- NOTE | 2018-07-20 15:36 | NUR ---
PT CARE ASSUMED APPROX 0700. PT DROWSY BUT ORIENTED X4. C/O INTERMITTENT GENERALIZED PAIN 8-10/10. MANAGING PAIN WITH PERCOCET. VSS. PT DISCHARGED TO PREVIOUS FACILITY JUST NOW. MOHAN BURT RECEIVED BEDSIDE REPORT. REPORT WAS CALLED TO ADMISSION NURSE APPROX 1400. SHE DENIES QUESTIONS OR CONCERNS REGARDING PT NEEDS. CHRONIC PAIZ PATENT. LEFT CHEST TICC LINE PATENT. TELE OFF. NO DISTRESS THIS SHIFT.
== END 2018-07-20 15:30 | DRG 682 ==
LOC: ER 14:41 → EROBS 16:42 → 2N 16:42 → 3W 16:42 → 2N 07-18 22:51
PROVIDERS: Emergency Medicine; Hospitalist; Nurse Practitioner; Nurse Practitioner Gerontology; ADMIT Internal Medicine
DX: N17.9 Acute kidney failure, unspecified (principal); I50.33 Acute on chronic diastolic (congestive) heart failure; J96.21 Acute and chronic respiratory failure with hypoxia; E43 Unspecified severe protein-calorie malnutrition; J96.22 Acute and chronic respiratory failure with hypercapnia; G93.40 Encephalopathy, unspecified; Z68.43 Body mass index [BMI] 50.0-59.9, adult; I13.0 Hypertensive heart and chronic kidney disease with heart failure and stage 1 through stage 4 chronic kidney disease, or unspecified chronic kidney disease; E66.01 Morbid (severe) obesity due to excess calories; J44.9 Chronic obstructive pulmonary disease, unspecified; G47.00 Insomnia, unspecified; G60.9 Hereditary and idiopathic neuropathy, unspecified; F32.9 Major depressive disorder, single episode, unspecified; K21.9 Gastro-esophageal reflux disease without esophagitis; G47.33 Obstructive sleep apnea (adult) (pediatric); E03.9 Hypothyroidism, unspecified; G89.4 Chronic pain syndrome; E87.70 Fluid overload, unspecified; R13.10 Dysphagia, unspecified; R33.9 Retention of urine, unspecified; I35.0 Nonrheumatic aortic (valve) stenosis; I27.20 Pulmonary hypertension, unspecified; I48.0 Paroxysmal atrial fibrillation; N18.9 Chronic kidney disease, unspecified; G72.89 Other specified myopathies; Z87.81 Personal history of (healed) traumatic fracture; Z87.891 Personal history of nicotine dependence; Z93.0 Tracheostomy status; Z79.899 Other long term (current) drug therapy
CPT/HCPCS: 10081; 10879

== ENCOUNTER 2018-08-03 13:43 | Inpatient (IN) | payer OTHER ==
[~2018-08-03] VITALS: Ht 154.9 cm; Wt 167.2 kg
[2018-08-03] VITALS (8 sets, daily range): BP systolic 87–120; BP diastolic 50–81
[~2018-08-03 13:43] MED LIST changes: +TORSEMIDE20 MG PO
--- NOTE | 2018-08-03 13:47 | NUR ---
PT SATS 81% ON 15L TRACH MASK. ERP ASSISTS RESPIRATIONS WITH BAG AT THIS TIME
[2018-08-03 14:19] LABS: BE(vivo) 8.7 mmol/L (-2 to +3); HCO3 34.7 mmol/L (22.0-26.0); PO2 262.5 mmHg (80.0-100.0); pH 7.426 (7.360-7.450); sO2 99.6 % (92.0-98.0)
[2018-08-03 15:14] LABS: HEMATOCRIT 36.1 % (37.0-47.0); HEMOGLOBIN 11.6 gm/dL (12.0-15.0); MCHC 32.2 g/dL (28.0-37.0); MCV 71.2 fL (80.0-100.0); PLATELET COUNT 260 thou/uL (150-400); RBC 5.07 mil/uL (4.20-5.00); RDW 20.2 % (10.5-14.5); WBC 7.8 thou/uL (4.0-11.0)
[2018-08-03 15:32] LABS: ANION GAP 4 mmol/L (7-16); BUN 45 mg/dL (7-18); CALCIUM 9.3 mg/dL (8.5-10.1); CHLORIDE 98 mmol/L (98-107); CO2 36 mmol/L (21-32); CREATININE 1.8 mg/dL (0.6-1.0); GLUCOSE 95 mg/dL (74-106); POTASSIUM 4.5 mmol/L (3.5-5.1); SODIUM 138 mmol/L (136-145)
[2018-08-03 15:37] LABS: ALBUMIN 1.6 g/dL (3.4-5.0); SGOT 33 U/L (15-37); SGPT 19 U/L (30-65); TOTAL BILIRUBIN 0.5 mg/dL (<0.1-1.0); TOTAL PROTEIN 7.2 g/dL (6.4-8.2); TROPONIN-I <0.06 ng/mL (<0.06)
[2018-08-03 16:05] LABS: ABSOLUTE NEUTROPHILS 3.9 thou/uL (1.4-8.2)
[2018-08-03 16:06] LABS: ANISOCYTOSIS 1+; HYPOCHROMASIA 1+; TARGET CELLS OCCASIONAL
--- NOTE | 2018-08-03 19:33 | NUR ---
1845 - PT TO BED 236 FROM ED /C RN AND RESP - MONITORS APPLIED - VSS - PT ALERT AND ANSWERING QUESTIONS - REPORT GIVEN TO KATIANA BOWMAN
[2018-08-04] VITALS (26 sets, daily range): BP systolic 85–131; BP diastolic 31–87
--- NOTE | 2018-08-04 02:41 | NUR ---
ASSUMED CARE OF PT AT 1900. PT ALERT AND ORIENTED TO PERSON, PLACE, AND SITUATION. PT IS AT TIMES WITHDRAWN AND REFUSES TO LOOK OR ANSWER TO STAFF, THIS IS USUALLY AFTER SUCTIONING OR TURNING PT. SR ON THE MONITOR. BP SOFT. VSS. PT STATES DISCOMFORT ON HER FEET BUT DENIES PAIN AT THIS TIME. REMAINS TRACHED ON VENT. PT HAVING COPIOUS AMOUNTS OF INLINE AND ORAL SECRETIONS REQUIRING FREQUENT SUCTIONING. GOOD UO. NO BM NOTED. WILL CONTINUE TO MONITOR.
[2018-08-04 04:40] LABS: HEMATOCRIT 35.8 % (37.0-47.0); HEMOGLOBIN 11.3 gm/dL (12.0-15.0); MCH 22.3 pg (26.0-34.0); MCHC 31.5 g/dL (28.0-37.0); MCV 70.9 fL (80.0-100.0); RBC 5.05 mil/uL (4.20-5.00); RDW 19.5 % (10.5-14.5)
[2018-08-04 05:08] LABS: CREATININE 1.9 mg/dL (0.6-1.0)
--- NOTE | 2018-08-04 17:36 | NUR ---
SHIFT NOTE ASSESSMENT AND VITALS PER CHARTING. PT TURNED THROUGH OUT SHIFT. SUCTIONED MULIPLE TIMES PER PATIENTS REQUEST. PT HAD COMPLAINTS OF PAIN AND NAUSEA MEDICATIONS GIVEN ORDERED. PT HAD NO S/SX OF SOA OR CHEST PAIN. PT URINE OUTPUT LOW DURING SHIFT PHYSICIAN NOTIFIED PATIENT BOLUSED AND LASIX GIVEN. OUTPUT WAS ADIQUATE BY END OF SHIFT. WILL CONTINUE TO MONITOR TILL THE END OF THE SHIFT.
[2018-08-04] MEDS ORDERED: MELATONIN5 M1 PO ×2 (20:44→20:45)
[2018-08-05] VITALS (39 sets, daily range): BP systolic 89–117; BP diastolic 40–67
--- NOTE | 2018-08-05 04:12 | NUR ---
Assumed patient care at 1900. Patient making progress towards outcome goals. Oxygenation optimal with current vent settings. BP upper 80's to low 100. Maintaining IVfluids. Patient alert, wants off vent. Still c/o some nausea, tube feeding on hold at this time Rhythm sinus stable.
[2018-08-05 05:27] LABS: HEMATOCRIT 32.1 % (37.0-47.0); HEMOGLOBIN 10.3 gm/dL (12.0-15.0); MCH 22.8 pg (26.0-34.0); MCHC 32.1 g/dL (28.0-37.0); MCV 71.1 fL (80.0-100.0); RBC 4.51 mil/uL (4.20-5.00); RDW 19.7 % (10.5-14.5)
[2018-08-05 05:37] LABS: CALCIUM 8.5 mg/dL (8.5-10.1); CREATININE 1.9 mg/dL (0.6-1.0); POTASSIUM 3.6 mmol/L (3.5-5.1)
--- NOTE | 2018-08-05 16:35 | NUR ---
ASSESSED PT FOR NEW CL PLACEMENT SHE HAS A LT IJ TUNNELD LINE WITH POSSIBLE INFECTION. RT IJ NOT APPROPRIATE FOR ACCESS AFTER ASSESSED WITH US. RECOMMEND IR PLACING A NEW TUNNELED LINE WHEN MD DEEMS APPROPRIATE
--- NOTE | 2018-08-05 19:30 | NUR ---
IN AM, PT CALM, ALERT, USING HER PHONE, HAND HELD COMPUTER GAME AND HER COMPUTER. DENIES PAIN OR ANY COMPLAINTS. SR, UNSUCCESSFUL ATTEMPT AT LINE PLACEMENT. CURRENT CENTRAL LINE WITH GRAM NEG RODS. TOLERATING TRACH/VENT, WHEN SLIGHT NAUSEA RESOLVED, JEVITY 1.5 STARTED AT 30CC/HR, LASIX IV ADMINISTER WITH MODERATE AMOUNT UOP PER PAIZ. GLUCOSE 59, THEN 69, RESPECTIVELY. SEE MARS FOR D50 ADMINISTRATION. PAGED DR. BREWER TWICE. REPAGED DR. BREWER, CALL PROMPTLY RETURNED NOTIFING HIM OF CURRENT CENTRAL LINE WITH GRAM NEG RODS, ATTEMPTED IV PLACEMENT AND LOW BLOOD SUGARS. SEE ORDERS.
[2018-08-06] VITALS (28 sets, daily range): BP systolic 75–109; BP diastolic 30–64
[2018-08-06 04:30] LABS: ABSOLUTE NEUTROPHILS 10.3 thou/uL (1.4-8.2); BASOPHILS 0.9 % (0.0-2.0); EOSINOPHILS 5.7 % (0.0-3.0); HEMATOCRIT 32.4 % (37.0-47.0); HEMOGLOBIN 10.3 gm/dL (12.0-15.0); LYMPHOCYTES 12.3 % (24.0-44.0); MCH 22.9 pg (26.0-34.0); MCHC 31.8 g/dL (28.0-37.0); MCV 72.2 fL (80.0-100.0); MONOCYTES 10.3 % (1.0-8.0); PLATELET COUNT 241 thou/uL (150-400); POLYS 70.8 % (36.0-66.0); RBC 4.48 mil/uL (4.20-5.00); RDW 19.9 % (10.5-14.5); WBC 14.6 thou/uL (4.0-11.0)
[2018-08-06 04:31] LABS: ALBUMIN 1.1 g/dL (3.4-5.0); CALCIUM 7.9 mg/dL (8.5-10.1); CREATININE 1.7 mg/dL (0.6-1.0); MAGNESIUM 1.6 mg/dL (1.8-2.4); POTASSIUM 3.3 mmol/L (3.5-5.1); TOTAL BILIRUBIN 0.4 mg/dL (<0.1-1.0); TOTAL PROTEIN 6.1 g/dL (6.4-8.2)
[2018-08-06 05:52] LABS: ANISOCYTOSIS 2+; HYPOCHROMASIA 2+; MICROCYTES 1+
--- NOTE | 2018-08-06 06:05 | NUR ---
ASSUME CARE 1900/ PT STABLE. BP RUNS SOFT. DENIES ANY PAIN. A/O X 4. BED RIDDEN. MOVES UPPER EXTREMITIES BY SELF. ADEQIUATE REST NOTED. BS RUNS LOW. D50 X 1 DOSE. 250ML FLUID BOLUS FOR IMPROVED BP. ASSESSMENT CHARTED. PROGRESSING SLOWLY WITH POC. PLAN IS TP CONTINUE TO MONITOR RESP FUNCTION. PT ON VENT VIA TRACH. SATS IN HIGH 90s. WILL CONTINUE TO MONITOR AND FOLLOW WITH POC
[2018-08-06 07:52] LABS: HCO3 31.4 mmol/L (22.0-26.0); PCO2 49.1 mmHg (35.0-45.0); PO2 63.6 mmHg (80.0-100.0); pH 7.424 (7.360-7.450); sO2 92.5 % (92.0-98.0)
--- NOTE | 2018-08-06 09:54 | NUR ---
FORMAL P.T. EVALUATION DEFERRED PT UNABLE TO PARTICIPATE IN ANY REQUESTED AROM BILAT LES. PT IS DEPENDENT FOR MOBILITY AND REQUIRES A MECHANICAL LIFT FOR TXS AT BASELINE AND THUS P.T. IN THE ACUTE CARE SETTING IS NOT INDICATED WE ARE UNABLE TO ESTABLISH FUNCTIONAL GOALS IN A PT THAT IS NOT ABLE TO PARTICIPATE IN P.T. INTERVENTIONS.
[2018-08-06 11:38] LABS: POTASSIUM 3.7 mmol/L (3.5-5.1)
--- NOTE | 2018-08-06 13:24 | NUR ---
CM ASSESSMENT: CASE OPENED FOR DC PLANNING. CLINICAL INFO REVIEWED. PT KNOWN TO CM FROM MULTIPLE PREVIOUS ADMITS. PT RESIDES IN TLC AT [facility] AND FREQUENTLY ADMITS WITH A/C HYPOXIC/HYPERCAPNIC RESP FAILURE. PT IS NON AMBULATORY, REQUIRES ASSIST WITH ADLS. USES BIPAP WHEN SLEEPS. CURRENTLY ON VENT. SPOKE WITH ANDREEA IN ADMISSIONS FOR [facility]. ANDREEA INDICATES PT HAS BEEN GIVEN A 30 DAYS NOTICE FROM FACILITY IN JUL R/T FINANCIAL ISSUES. ANDREEA CONFIRMS [facility] WILL ACCEPT PT BACK TO FACILITY WHEN MEDICALLY STABLE. UNABLE TO PLACE PT IN LTC HAS [place] MEDICAID AND [place] IS ONLY OPTION AND PT ON DO NOT READMIT LIST. DC PLAN TO RETURN TO LTC AT [facility] WHEN MEDICALLY STABLE.
--- NOTE | 2018-08-06 16:03 | NUR ---
ASSESSMENT DOCUMENTED. PT ORIENTED X4. RECEIVED PRN PAIN MED FOR LOWER EXTRIMITY PAIN WITH PARTIAL RELIEF. VSS. JEVITY INFUSING @ 50 CC/HR. RT TREATMENT GIVEN ORDERED. NO RESPITORY DISTRESS NOTED. ORDERS GIVEN TO TRANSFER PT TO 3 W. REPORT CALLED IN TO THE NURSE.
[2018-08-07 04:50] VITALS: BP 82/49
--- NOTE | 2018-08-07 07:37 | NUR ---
PATIENT IS PROGRESSING SLOWLY IN HER CARE PLAN. VITAL SIGNS STABLE WITH PATIENT HAVING NO COMPLAINTS OF NAUSEA. PATIENT DID COMPLAIN OF PAIN IN LOWER EXTREMITIES WHICH WAS TREATED EFFECTIVELY WITH MEDICATION. PATIENT REMAINED ON VENTILATOR THROUGHOUT SHIFT AND HAD NO PROBLEMS BREATHING EVIDENCED BY READINGS ON CONTINUOUS SATURATION MONITOR. TRACH CARE PROVIDED WITH FREQUENT SUCTIONING. PATIENT IS ORIENTED AND ABLE TO CALL APPROPRIATELY FOR REQUESTS. FREQUENT INCONTINENCE CHECKS WITH STAFF PROVIDING CLEAN UP. PATIENT REFUSED TURNS. CONTINUOUS TUBE FEED STOPPED AROUND 0300 PER PATIENTS REQUEST. 0600 BLOOD SUGAR WAS LOW WITH ORDERS OBTAINED FOR D50. RECHECK AT 80. CONTINUE PLAN OF CARE.
[2018-08-07 08:22] VITALS: BP 100/58
--- NOTE | 2018-08-07 09:52 | HC ---
[facility] [place] [address] CONSULTATION Name: DAKOTA MOSQUEDA Room #: [facility]- ADM IN M.R.#: [id number] Admission: 08/03/18 ������������������ Attend Phys: Kurt Case MD Discharge: ������������������ Date of : 79 Report #: [id number] THIS REPORT FOR: //name// CC: Kurt Brandt Akkulugari DATE OF SERVICE: 08/06/2018 ATTENDING PHYSICIAN: Dr. Case. REASON FOR CONSULTATION: Bacteremia. HISTORY OF PRESENT ILLNESS: A 43-year-old -[place] woman well known to me from previous hospitalizations, resides at a local [facility] and is transferred to [place] with increasing shortness of breath, CO2 retention and acute kidney injury and her initial workup has included blood cultures that show growth of gram-negative rods. The patient at the present is in the intensive care unit on pressor, hypotensive with mechanical ventilator. All information on the patient is gathered from review of records. PAST MEDICAL HISTORY: Atrial fibrillation with rapid ventricular rate response. Chronic tracheostomy, respiratory failure. Status post central venous catheter -tunneled -- inserted 04/2018. Chronic congestive heart failure - diastolic. Chronic decubitus ulcers -coccyx Recurrent UTI. Fracture of right distal femur. COPD. Obstructive sleep apnea. Hypothyroidism. Recurrent aspiration pneumonia. 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 DRUG ALLERGIES: MARTINE INHIBITOR, CHRONIC COUGH. MEDICATIONS: The patient is currently on treatment with Zosyn 3.375 grams IV every 8 hours, normal saline at 1000 mL every 13 hours, p.r.n. oxycodone/acetaminophen 1 tablet every 6 hours if needed, pregabalin 50 mg b.i.d. ____ feeding tube, levothyroxine 50 mcg per feeding tube, melatonin 5 mg at bedtime p.r.n. She is on pressors as needed and those include norepinephrine. She is also on digoxin, lactobacillus acidophilus, p.r.n. acetaminophen, p.r.n., guaifenesin, p.r.n. baclofen, p.r.n. ondansetron, enoxaparin subcutaneously and p.r.n. fentanyl. SOCIAL HISTORY: See H and P and old records. REVIEW OF SYSTEMS: Unable to obtain. PHYSICAL EXAMINATION: GENERAL: Morbidly obese -[place] woman, afebrile. [address] [address] CONSULTATION Name: DAKOTA MOSQUEDA Room #: 352-P [facility] IN .R.#: [id number] Admission: 08/03/18 ������������������ Attend Phys: Kurt Case MD Discharge: ������������������ Date of : 79 Report #: [id number] VITAL SIGNS: Temperature 97.3, pulse 62, respirations 16, BP 87/39, height 5 feet 1 inch, weight 368.5 pounds. HEENMT: Pupils reactive. Mouth, carious and missing teeth. NECK: Tracheostomy in place. CHEST: Reveals left-sided central venous catheter -- tunneled catheter, left internal jugular vein. LUNGS: Decreased breath sounds bilaterally. HEART: S1 and S2. No gallop or murmur. ABDOMEN: Obese, soft and gastrostomy in place. PELVIC AND RECTAL: Deferred. EXTREMITIES: Stasis dermatitis, chronic ruano in right leg and thigh. NEUROLOGIC: Unable to evaluate. LABORATORY DATA: Sodium 142, potassium 3.3, BUN 39, creatinine 1.7, glucose 124, magnesium 1.6, albumin 1.1 g/dL. NT-proBNP is 3079. WBC 14,600, hemoglobin 10.3 g/dL and platelets 241,000. White blood cell count differential revealed 70% segmented neutrophils and 12% lymphocytes. Previous MRSA by PCR positive. Repeat is pending. Procalcitonin 1.88. ABGs: pH 7.42, pCO2 of 49, pO2 of 63, bicarbonate 31. Lactate elevated at 2.59. This set of gases is on FiO2 of 40%, 5 of PEEP, tidal volume 600. MICROBIOLOGY DATA: Blood cultures were obtained on 08/03/2018 and 08/04/2018 and they are showing gram-negative rods. The sputum cultures show gram-negative rods as well. Urine culture is pending. Note is made, the patient had multiple resistant Pseudomonas aeruginosa and Acinetobacter baumannii previously. RADIOLOGY EVALUATION: A chest x-ray revealed some perihilar infiltrates in the retrocardiac area and left lower lobe. ASSESSMENT: 1. Chronic respiratory failure, tracheostomy, ventilator dependent. 2. COPD with CO2 retention. 3. Hypotension. 4. Sepsis. 5. Gram-negative zulema in a patient with previous history of multiple drug resistant organism infection colonization. 6. Acute kidney injury on chronic kidney disease. 7. Morbid obesity. 8. Severe malnutrition. SUGGESTIONS: Recommend possibly we should consider using Zerbaxa (ceftolozane/ tazobactam). Obviously we will use this in lieu of Zosyn since previously isolated organisms were resistant to this generation. Should she have pseudomonas in the blood cultures, the central venous catheter must be replaced. [facility] [address] [place] [address] CONSULTATION Name: DAKOTA MOSQUEDA Room #: 352-P ADM IN M.R.#: [id number] Admission: 08/03/18 ������������������ Attend Phys: Kurt Case MD Discharge: ������������������ Date of : 79 Report #: [id number] Case and [address] Bhatt, thank you for requesting my suggestions. ��������������������������������������������� <ELECTRONICALLY SIGNED> ���������������������������������������� By: Stan Palmer MD ��������������������������������������������� 08/07/18 [id number] Stan Palmer MD /nt
--- NOTE | 2018-08-07 10:32 | NUR ---
BEDSIDE SWALLOW EXAM ON HOLD FOR NOW. THE PATIENT HAS A PASSY CONSUELO SPEAKING VALVE BUT SHE IS CURRENTLY ON THE VENT AND UNABLE TO USE. CONSULTED WITH MERLYN THE RT TO SEE ABOUT USING AN INLINE SPEAKING VALVE. UNTIL THEN, CONTINUE TUBE FEEDINGS AND KEEP NPO.
[2018-08-07 11:46] VITALS: BP 106/64
--- NOTE | 2018-08-07 12:45 | NUR ---
dp [facility], dc date unknown, but soon. DP michela contact facility to let them know referral was sent.
--- NOTE | 2018-08-07 13:45 | NUR ---
SW reviewed chart and spoke with nursing and attending physician. Pt was transferred to from ICU. Pt remains on the vent. ST evaluation unable to be completed until pt is off the vent. program planner faxed clinical updates to [facility]. Plan is for pt to discharge back to [facility] when medically stable. LEI is following to assist as needed with discharge planning.
--- NOTE | 2018-08-07 15:04 | NUR ---
PT REPORTS GENERALIZED LEG PAIN /10 AND MEDICATED WITH PERCOCET WITH FAIRLY GOOD RELIEF OBTAINED...
[2018-08-07 16:12] VITALS: BP 101/55
[2018-08-07 19:43] VITALS: BP 86/40
[2018-08-08 04:00] VITALS: BP 119/68
--- NOTE | 2018-08-08 05:45 | NUR ---
PT MAKING SLOW PROGRESS TOWARDS GOALS. X2 DOSES OF PAIN MEDICATION FOR LEG PAIN. REPORTS MINOR DECREASE IN PAIN WITH DOSES. ON VENTILATOR, LUNGS DIMINSISHED THROUGHOUT. MINIMAL WHITE COLORED AND THICH SPUTUM WITH SUCTIONING.
[2018-08-08 08:07] VITALS: BP 118/65
[2018-08-08 08:47] LABS: HEMATOCRIT 30.4 % (37.0-47.0); HEMOGLOBIN 9.6 gm/dL (12.0-15.0); MCH 22.8 pg (26.0-34.0); MCHC 31.6 g/dL (28.0-37.0); MCV 72.2 fL (80.0-100.0); PLATELET COUNT 281 thou/uL (150-400); RBC 4.21 mil/uL (4.20-5.00); RDW 19.9 % (10.5-14.5); WBC 8.3 thou/uL (4.0-11.0)
[2018-08-08 09:01] LABS: ALBUMIN 1.2 g/dL (3.4-5.0); CALCIUM 8.7 mg/dL (8.5-10.1); CREATININE 1.2 mg/dL (0.6-1.0); MAGNESIUM 2.2 mg/dL (1.8-2.4); POTASSIUM 3.7 mmol/L (3.5-5.1); TOTAL BILIRUBIN 0.3 mg/dL (<0.1-1.0); TOTAL PROTEIN 6.4 g/dL (6.4-8.2)
[2018-08-08 09:25] LABS: ABSOLUTE NEUTROPHILS 2.9 thou/uL (1.4-8.2); ANISOCYTOSIS 2+; HYPOCHROMASIA 1+; MICROCYTES 2+; PLATELET ESTIMATE NORMAL
[2018-08-08 10:51] VITALS: BP 115/52
--- NOTE | 2018-08-08 14:39 | NUR ---
I have reviewed the documentation by BECKY RUBALCAVA from 08/08/18 to 08/08/18 and I concur with it. RUBEN ST A
--- NOTE | 2018-08-08 15:21 | NUR ---
LEI reviewed chart and spoke with nursing, attending physician and ID physician. Pt remains on the vent and IV abx. Pt to have TICC line replaced in IR. LEI met with pt at bedside. Provided update regarding plan of care and discussed discharge plan. Pt states that she is not happy with the care she is receiving at [facility]. Allowed pt to vent her frustrations and concerns. LEI explained that these concerns will be passed on to [facility] liaison. SW discussed possible LTAC placement if she has acute Medicare days available. Pt has been to [facility] in the past and states she is not allowed to return there. SW discussed alternate LTACs. Pt states her mother lives in [place], and would not want to be too far away. Pt would agree to consider [facility]. SW explained about having to verify and confirm Medicare Acute Days. Pt verbalized understanding. LEI discussed case with [facility] liaison. [facility] business office shows that pt has 51 full covered acute days available, 30 co-pay acute days and 0 lifetime reserve days. Pt also has 20 full covered SNF days available and 80 co-pay SNF days. LEI requested ppwk to be faxed for review. Obtained fax. LEI discussed with registration. ELI discussed case with VENANCIO GALICIA RN and Director of Case Mgmt. [facility] is able to accept pt when she is medically stable. SW to discuss with pt and her mother tomorrow about discharging to [facility] and then possibly transition to [facility] SNF for LTC. If pt is able to establish [place] residency, [facility] would assist with transferring [place]. LEI updated VENANCIO GALICIA RN and DIrector of CM. LEI is following to assist as needed with discharge planning.
[2018-08-08 18:08] VITALS: BP 125/60
[2018-08-08 19:27] VITALS: BP 118/67
--- NOTE | 2018-08-08 19:44 | NUR ---
PT RATES PAIN 7/10 IN LEGS AND MEDICATED WITH PERCOCET WITH GOOD RELIEF OBTAINED...
--- NOTE | 2018-08-08 21:25 | NUR ---
BLOOD CULTURES DRAWN THIS AM RESULTED POSITIVE FOR GRAM NEG RODS. CALLED LINDA MAGANA AND SAID TO FOLLOW POC WITH ANTIBIOTICS AND INFECTIOUS DISEASE IS FOLLOWING AND WILL ROUND ON HER TOMORROW.
--- NOTE | 2018-08-09 04:18 | NUR ---
EVEN WITH FECAL MANAGEMENT SYSTEM, PT IS LEAKING AROUND IT. CLEANED UP PT 1X WITH ASSISTANCE OF 2 OTHERS. GOWN CHANGED AND BARRIER PROTECTION APPLIED. TUBE FEEDING HAD A MINOR ISSUE WITH A CLOG, RESOLVED THE ISSUE AT APPROX 2430. FOLLOWING POC WITH IVF/IVPB ANTIBIOTICS. A NEW TICC IS SCHEDULED IN IR TODAY. MOTHER OF PT SPOKE TO ME ABOUT NEW ANTIBIOTICS AND I EDUCATED HER ON THOSE. TUBE FEEDING AT 50ML/HR AND 150ML H20 FLUSHES WITH MED PASSES. VSS AND GAVE PT 2X PAIN MEDICATION FOR PAIN IN LEGS. VENT SOUNDS OFF WHEN THE COLLAR IS DEFLATED OR OUT OF POSITION. RT CORRECTED ACTION. HOURLY ROUNDING.
[2018-08-09 05:05] VITALS: BP 102/60
[2018-08-09 07:07] VITALS: BP 99/54
[2018-08-09 12:57] VITALS: BP 108/61
--- NOTE | 2018-08-09 14:17 | NUR ---
LEI reviewed chart and spoke with nursing, attending physician and ID physician. Pt is currently off the unit having TICC line replaced in IR. SW left voice message for pt's mother to discuss discharge plans. LEI updated [facility] liaison who confirms they are able to accept pt to their LTAC when she is medically stable. Awaiting call back from pt's mother at this time. LEI is following to assist as needed with discharge planning.
[2018-08-09 16:13] VITALS: BP 118/67
--- NOTE | 2018-08-09 18:28 | NUR ---
Assumed care of Pt at 0700. Pt alert and oriented, in no acute distress. taken to IR to infected central line and place temporary right jugular line - permanent line to be placed when blood cultures come back negative. Tube feedings infusing at goal rate w/o significant residual. turned Q2H and PRN. on cpap mode for part of day per pulm. vitals stable. pt progressing toward poc goals.
[2018-08-09 20:00] VITALS: BP 112/72
[2018-08-10 03:13] LABS: CALCIUM 8.6 mg/dL (8.5-10.1); CREATININE 0.9 mg/dL (0.6-1.0); MAGNESIUM 2.1 mg/dL (1.8-2.4); POTASSIUM 3.9 mmol/L (3.5-5.1)
--- NOTE | 2018-08-10 03:16 | NUR ---
ASSESSMENT: PT REMAIN ALERT AND ORIENT TIMES FOUR. TOLERATED CPAP TRIAL UNTIL SHE WAS PUT BACK ON THE VENT. VENT SETTINGS:AC 14, TV 550, PEEP 8, FI02 50%. TRACH = #6 EXTRA LONG. MINIMAL SUCTIONING, WHITE THIN SECREATIONS. RIGHT IJ INTACT, PATENT AND DRAWS/FLUSHES WELL. REMAIN IN ISOLATION FOR MDR. TOLERATING TUBE FEEDINGS PER NG TUBE. C/O GENERALIZED PAIN, PRN PAIN MEDICATONS GIVEN WITH PARTIAL RELIEF. NPO. PLEASANT PERSONALITY. SR PER MONITOR. SLOW PROGRESS TOWARDS DC GOALS, WILL CONTINUE TO MONITOR.
[2018-08-10 03:21] LABS: HEMATOCRIT 29.7 % (37.0-47.0); HEMOGLOBIN 9.3 gm/dL (12.0-15.0); MCH 22.7 pg (26.0-34.0); MCHC 31.2 g/dL (28.0-37.0); MCV 72.7 fL (80.0-100.0); RBC 4.09 mil/uL (4.20-5.00); RDW 19.2 % (10.5-14.5); WBC 10.4 thou/uL (4.0-11.0)
[2018-08-10 06:30] VITALS: BP 102/69
--- NOTE | 2018-08-10 14:27 | NUR ---
SW reviewed chart and spoke with nursing and attending physician. Pt had TICC line replaced yesterday in IR. SW met with pt and mother at bedside to discuss discharge plan. SW discussed available Medicare acute days and possibility of going to [facility]. Both pt and her mother are agreeable with plan. SW explained that once pt is ready to leave the LTAC, pt will need to go to a SNF/LTC facility. SW further discussed need to work with [facility] to ensure pt has coverage through her Medicaid for fdc placement (long-term care). LEI explained that additional financial information and documentation will be needed. Pt and her mother verbalized understanding and are agreeable with SW contacting [facility] to assist as needed. No weekend discharge anticipated. LEI explained that [facility] liaison will be reaching out to them next week to assist with transition to [facility]. Both agreeable. LEI faxed face sheet to [facility]. SW is following to assist as needed with discharge planning.
--- NOTE | 2018-08-10 19:48 | NUR ---
SHE HAS RESTED IN BED ALL DAY. DOES NOT SEEM TO BE IN PAIN THROUGH THE DAY. TRACH HAS STAYED IN PLACE. WILL CONT WITH PLAN OF CARE.
[2018-08-10 20:04] VITALS: BP 115/67
[2018-08-11 03:47] VITALS: BP 134/78
[2018-08-11 08:00] VITALS: BP 134/71
--- NOTE | 2018-08-11 09:00 | NUR ---
PATIENT IS ALERT AND ORIENTED. PATIENT IS INCONTIENT. Q2TURN. PATIENT REFUSED TURNS. PATIENT IS ON VENT. PATIENT HAS ANTIBIOTICS. PATIENT IS ON TUBE FEEDING. PATIENT IS NPO. PATIENT MAYBE PENDING DISCHARGE BACK TO FACILITY. KENNY.
[2018-08-11 12:00] VITALS: BP 135/75
--- NOTE | 2018-08-11 14:14 | NUR ---
ASSUMED PATIENT CARE AT 0715. A&OX4. COMPLAINTS OF BLE PAIN. 3+ EDEMA BILATERAL FEET. Q2 TURNS. PATIENT HAS BEEN AGREEABLE TO TURNS TODAY, REFUSED OVERNIGHT. GETTING BLOOD SUGARS THROUGH TICC LINE. NEW LINE PLACED August. REMOVED FECAL MANAGEMENT SYSTEM TODAY. SYSTEM WAS NOT PUTTING OUT MUCH AND STOOL WAS GOING AROUND TUBE. PLAN IS TO DC TO [facility], MOST LIKELY MONDAY. PROGRESSING TOWARD DISHCARGE GOALS.
[2018-08-11 15:00] VITALS: BP 137/75
[2018-08-11 20:05] VITALS: BP 132/70
[2018-08-12 03:36] VITALS: BP 154/85
--- NOTE | 2018-08-12 05:06 | NUR ---
PT LYING IN BED. REMAINS INCONTINENT OF BOWEL. OXYCODONE PROVIDNG PAIN RELIEF. RESTING COMFORTABLY. NO NEEDS VOICED. CALL LIGHT WITHIN REACH. WILL CONTINUE TO PROVIDE FREQUENT OBSERVATION.
[2018-08-12 07:30] VITALS: BP 133/81
[2018-08-12 08:35] LABS: HEMATOCRIT 28.2 % (37.0-47.0); HEMOGLOBIN 8.9 gm/dL (12.0-15.0); MCHC 31.7 g/dL (28.0-37.0); MCV 72.4 fL (80.0-100.0); RBC 3.9 mil/uL (4.20-5.00); RDW 18.8 % (10.5-14.5); WBC 10.5 thou/uL (4.0-11.0)
[2018-08-12 08:39] LABS: CREATININE 0.7 mg/dL (0.6-1.0); POTASSIUM 4.1 mmol/L (3.5-5.1)
[2018-08-12 11:34] VITALS: BP 134/76
[2018-08-12 15:39] VITALS: BP 136/79
--- NOTE | 2018-08-12 16:56 | NUR ---
PT ALERT AND ORIENTED TIMES FOUR. VSS, VENT/TRACH 98%, SR ON TELE, IVF INFUSING PER ORDER, PAIZ TO DD. TUBE FEEDING PER PEG TOLERATING AT GOAL RATE OF 50. PT C/O PAIN PRN PAIN MEDICATIONS GIVEN X2 WITH GOOD RELEIF. FAMILY AT BEDSIDE THIS AFTERNOON. WILL CONTINUE TO MONITOR.
[2018-08-12 20:15] VITALS: BP 148/80
[2018-08-13 06:40] VITALS: BP 142/83
[2018-08-13 08:00] VITALS: BP 131/69
--- NOTE | 2018-08-13 08:18 | NUR ---
PT LYING IN BED. REMAINS INCONTINENT OF STOOL. PERCOCET PROVIDING PAIN RELIEF. RESTING COMFORTABLY. NO NEEDS VOICED. CALL LIGHT WITHIN REACH. WILL CONTINUE TO PROVIDE FREQUENT OBSERVATION.
[2018-08-13 11:00] VITALS: BP 140/87
--- NOTE | 2018-08-13 13:15 | NUR ---
SPOKE WITH INFECTIOUS DISEASE, DR. MCGOWAN STATED IT'S OK FOR PATIENT TO BE DISCHARGED TODAY. ALSO DR. CHARLES STATED IT'S OK FOR DISCHARGE TODAY.
[2018-08-13] MEDS ORDERED: ENOXAPARIN40 MG/0.1 SUBQ (14:38)
[2018-08-13] MEDS ORDERED: MINOCIN50 MG PO (14:38)
[2018-08-13] MEDS ORDERED: PEPCID20 MG PER TUBE (14:38)
--- NOTE | 2018-08-13 15:05 | NUR ---
DP printed dc papers and [facility] faxed to facility. Patient will dc today to [facility].
--- NOTE | 2018-08-13 15:47 | NUR ---
DISCHARGE NOTE: LEI reviewed chart and spoke with nursing and attending physician. Pt is medically stable for discharge to [facility] today. LEI discussed with [facility] liaison, who confirms they are able to accept pt today. Request for 1900 ambulance transportation requested, in order to have bariatric bed delivered. [facility] met with pt earlier today. LEI met with pt at bedside to discuss discharge plan. Pt is aware and agreeable with plan to d/c to [facility]. office workforce planner coordinated ambulance transportation and notified pt's mother. Chart copy ordered. [facility] faxed discharge orders/summary. LEI updated [facility] liaison of pt's discharge disposition. Nursing to call report. No additional SW needs identified at this time, but is available to assist should needs arise.
--- NOTE | 2018-08-13 18:27 | NUR ---
PATIENT ALERT AND ORIENTED X4, PAIN MILDLY CONTROLLED WITH MEDICATION. SINUS RHYTHM ON DEVULCANIZER TENDER. #6 EXTRA LONG TRACHEOSTOMY, 40% ON VENTILATOR. PEG TUBE IN PLACE, TOLERATING TUBE FEEDING. PAIZ PATIENT AND DRAINING. RIGHT TRIPPLE LUMEN TICC LINE IN PLACE. TURNED Q2 HOURS. BLOOD SUGAR MONITORED. PATIENT BEING TRANSFERRED TO [facility]. REPORT CALLED TO JOYCE . NO SIGNES OF ACUTE DISTRESS NOTED AT THIS TIME. AWAITING TRANSPORT BY [facility] AT 1900.
== END 2018-08-13 19:15 | DRG 870 ==
LOC: ER 13:43 → 3W 15:36 → EROBS 15:36 → ICU 15:36 → 3W 08-06 16:17
PROVIDERS: Internal Medicine; Internal Medicine Pulmonary Disease; Pediatrics; Student in an Organized Health Care Education/Training Program; ADMIT Hospitalist
PROC: 5A1955Z Respiratory Ventilation, Greater than 96 Consecutive Hours (ICD-10-PCS; principal; 2018-08-03)
PROC: 05HY33Z Insertion of Infusion Device into Upper Vein, Percutaneous Approach (ICD-10-PCS; 2018-08-09)
PROC: 05PYX3Z Removal of Infusion Device from Upper Vein, External Approach (ICD-10-PCS; 2018-08-09)
DX: A41.59 Other Gram-negative sepsis (principal); J96.21 Acute and chronic respiratory failure with hypoxia; J96.22 Acute and chronic respiratory failure with hypercapnia; J15.1 Pneumonia due to Pseudomonas; N17.0 Acute kidney failure with tubular necrosis; G92 Toxic encephalopathy; E43 Unspecified severe protein-calorie malnutrition; I50.33 Acute on chronic diastolic (congestive) heart failure; Z68.44 Body mass index [BMI] 60.0-69.9, adult; I13.0 Hypertensive heart and chronic kidney disease with heart failure and stage 1 through stage 4 chronic kidney disease, or unspecified chronic kidney disease; E66.2 Morbid (severe) obesity with alveolar hypoventilation; F11.20 Opioid dependence, uncomplicated; G72.81 Critical illness myopathy; N39.0 Urinary tract infection, site not specified; J44.9 Chronic obstructive pulmonary disease, unspecified; Z16.29 Resistance to other single specified antibiotic; G47.33 Obstructive sleep apnea (adult) (pediatric); G89.4 Chronic pain syndrome; I48.0 Paroxysmal atrial fibrillation; G62.9 Polyneuropathy, unspecified; R65.20 Severe sepsis without septic shock; N18.9 Chronic kidney disease, unspecified; F41.1 Generalized anxiety disorder; I35.0 Nonrheumatic aortic (valve) stenosis; E03.9 Hypothyroidism, unspecified; D64.9 Anemia, unspecified; K21.9 Gastro-esophageal reflux disease without esophagitis; F32.9 Major depressive disorder, single episode, unspecified; Z87.81 Personal history of (healed) traumatic fracture; Z91.81 History of falling; Z93.0 Tracheostomy status; Z99.81 Dependence on supplemental oxygen; Z87.891 Personal history of nicotine dependence; Z79.899 Other long term (current) drug therapy; Z88.8 Allergy status to other drugs, medicaments and biological substances
CPT/HCPCS: 10078; 10779; 10879

== ENCOUNTER → 2018-09-17 | Outpatient (CLI) | payer OTHER ==
[~2018-09-17] MED LIST changes: +ENOXAPARIN40 MG/0.1 SUBQ; +MELATONIN5 M1 PO; +PEPCID20 MG PER TUBE
--- NOTE | 2018-09-17 08:11 | NUR ---
PT ARRIVED ON VENT VIA MOHAN FIRE, PT ALERT AND ORIENTED, MOTHER AT THE BEDSIDE. PT UNABLE TO VERBALIZE BUT ALERT AND ORIENTED. CONSENT OBTAINED FOR A PEG TUBE EXCHANGE. PT SIGNED CONSENTS. VITAL SIGNS STABLE, VENT SETTINGS PER RT. WILL MONITOR.
--- NOTE | 2018-09-17 12:55 | NUR ---
0800-IV TEAM IN HOLDING, 22 GAUGE PLACED. PT ALERT AND ORIENTED, MOTHER AT THE BEDSIDE. WILL CONTINUE TO MONITOR.
--- NOTE | 2018-09-17 12:56 | NUR ---
PT BACK FROM IR, PROCEDURE COMPLETED. PT IV DCD. TX ARRANGED. WILL CONTINUE TO MONITOR.
== END | disposition home or self-care (01) ==
LOC: SPEC 07:26
DX: Z43.1 Encounter for attention to gastrostomy (principal); E66.01 Morbid (severe) obesity due to excess calories; D64.9 Anemia, unspecified; F41.9 Anxiety disorder, unspecified; I50.33 Acute on chronic diastolic (congestive) heart failure; J96.21 Acute and chronic respiratory failure with hypoxia; Z79.899 Other long term (current) drug therapy; Z88.8 Allergy status to other drugs, medicaments and biological substances; Z98.890 Other specified postprocedural states; Z87.440 Personal history of urinary (tract) infections; Z79.891 Long term (current) use of opiate analgesic; Z87.01 Personal history of pneumonia (recurrent)

== ENCOUNTER 2018-10-29 08:29 | Inpatient (IN) | payer MEDICARE, OTHER ==
[~2018-10-29] VITALS: Ht 165.1 cm; Wt 165.9 kg
[2018-10-29 08:30] VITALS: BP 131/61
[2018-10-29 08:51] LABS: URINE BLOOD 2+ (Negative); URINE CLARITY CLEAR; URINE COLOR YELLOW; URINE GLUCOSE-RANDOM* NEGATIVE (Negative); URINE KETONES NEGATIVE (Negative); URINE NITRITE-REFLEX NEGATIVE (Negative); URINE PROTEIN (DIPSTICK) 1+ (Negative)
[2018-10-29 08:52] LABS: URINE LEUKOCYTES-REFLEX 3+ (Negative)
[2018-10-29 08:53] LABS: ICTOTEST (BILI CONFIRMATORY) Negative (Negative); URINE BILIRUBIN NEGATIVE (Negative)
[2018-10-29 08:55] LABS: SQUAMOUS 0-3 Few /LPF (0-3); URINE RBC 0-2 Rare /HPF (0-2); URINE WBC-REFLEX >25 Many /HPF (0-5)
[2018-10-29 08:56] LABS: CASTS None Seen /LPF (None Seen); CRYSTALS None Seen /LPF (None Seen)
[2018-10-29 09:06] LABS: HEMATOCRIT 23.8 % (37.0-47.0); HEMOGLOBIN 7.7 gm/dL (12.0-15.0); MCH 25.3 pg (26.0-34.0); MCHC 32.2 g/dL (28.0-37.0); MCV 78.5 fL (80.0-100.0); PLATELET COUNT 307 thou/uL (150-400); RBC 3.04 mil/uL (4.20-5.00); RDW 19.6 % (10.5-14.5); WBC 17.3 thou/uL (4.0-11.0)
[2018-10-29 09:13] LABS: CALCIUM 7.6 mg/dL (8.5-10.1); CREATININE 1.7 mg/dL (0.6-1.0); POTASSIUM 3.7 mmol/L (3.5-5.1)
[2018-10-29 09:45] LABS: ABSOLUTE NEUTROPHILS 15.2 thou/uL (1.4-8.2); ANISOCYTOSIS 1+; PLATELET ESTIMATE NORMAL
[2018-10-29] MEDS ORDERED: PROSOURCE NO CA30 ML PER TUBE (11:43)
[2018-10-29] MEDS ORDERED: CENTRUM SILVER1 EAC4 PER TUBE (11:44)
[2018-10-29] MEDS ORDERED: ROBAFEN100 MG/5 M PER TUBE (11:46)
[2018-10-29] MEDS ORDERED: TRAMADOL 50 MG50 MG PO (11:48)
[2018-10-29] MEDS ORDERED: CALMOSEPTINE OI71 GM TOP (11:49)
[2018-10-29 12:12] VITALS: BP 119/37
[2018-10-29 15:40] VITALS: BP 112/38
[2018-10-29 16:06] VITALS: BP 97/53
[2018-10-29 20:37] VITALS: BP 92/55
[2018-10-29 23:52] VITALS: BP 87/55
[2018-10-30] MEDS ORDERED: ROBAFEN100 MG/5 M PO (01:21)
[2018-10-30] MEDS ORDERED: CALMOSEPTINE O3.5 GM TOP (01:26)
[2018-10-30] MEDS ORDERED: PROSOURCE NO CA30 ML PO (01:28)
[2018-10-30 05:16] VITALS: BP 85/56
[2018-10-30 06:22] LABS: HEMATOCRIT 25.2 % (37.0-47.0); HEMOGLOBIN 8.3 gm/dL (12.0-15.0); MCH 25.7 pg (26.0-34.0); MCHC 32.8 g/dL (28.0-37.0); MCV 78.4 fL (80.0-100.0); RBC 3.22 mil/uL (4.20-5.00); RDW 18.7 % (10.5-14.5)
[2018-10-30 06:33] LABS: ALBUMIN 0.9 g/dL (3.4-5.0); CALCIUM 7.1 mg/dL (8.5-10.1); CREATININE 1.7 mg/dL (0.6-1.0); PHOSPHORUS 4.2 mg/dL (2.5-4.9); POTASSIUM 3.4 mmol/L (3.5-5.1)
[2018-10-30 07:21] VITALS: BP 86/56
[2018-10-30 12:30] VITALS: BP 85/61
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
[2018-10-30 16:45] VITALS: BP 86/66
[2018-10-30 19:45] VITALS: BP 82/58
[2018-10-31 00:49] VITALS: BP 80/50
[2018-10-31 04:09] VITALS: BP 89/57
[2018-10-31 09:00] LABS: HEMATOCRIT 24.6 % (37.0-47.0); MCH 25.6 pg (26.0-34.0); MCHC 32.4 g/dL (28.0-37.0); RBC 3.12 mil/uL (4.20-5.00); RDW 19.1 % (10.5-14.5); WBC 12.6 thou/uL (4.0-11.0)
[2018-10-31 09:23] LABS: CALCIUM 7.3 mg/dL (8.5-10.1); CREATININE 1.4 mg/dL (0.6-1.0); MAGNESIUM 1.3 mg/dL (1.8-2.4); POTASSIUM 3.2 mmol/L (3.5-5.1)
[2018-10-31 11:40] VITALS: BP 105/64
[2018-10-31 12:57] LABS: BE(vivo) -2.6 mmol/L (-2 to +3); HCO3 21.9 mmol/L (22.0-26.0); PCO2 36.2 mmHg (35.0-45.0); PO2 70.1 mmHg (80.0-100.0); pH 7.399 (7.360-7.450); sO2 94.2 % (92.0-98.0)
[2018-10-31 15:37] VITALS: BP 106/53
[2018-10-31 19:40] VITALS: BP 91/45
[2018-11-01 04:00] VITALS: BP 94/47
[2018-11-01 06:01] LABS: CALCIUM 6.7 mg/dL (8.5-10.1); CREATININE 1.1 mg/dL (0.6-1.0); MAGNESIUM 1.3 mg/dL (1.8-2.4); POTASSIUM 3.4 mmol/L (3.5-5.1)
[2018-11-01 06:05] LABS: HEMATOCRIT 22.1 % (37.0-47.0); HEMOGLOBIN 7.2 gm/dL (12.0-15.0); MCH 25.4 pg (26.0-34.0); MCHC 32.5 g/dL (28.0-37.0); MCV 78.2 fL (80.0-100.0); RBC 2.83 mil/uL (4.20-5.00); RDW 18.3 % (10.5-14.5); WBC 12.6 thou/uL (4.0-11.0)
[2018-11-01 08:02] VITALS: BP 81/40
[2018-11-01 11:36] VITALS: BP 102/54
[2018-11-01 15:28] VITALS: BP 117/56
[2018-11-01 20:10] VITALS: BP 110/64
[2018-11-02 05:15] VITALS: BP 110/55
[2018-11-02 05:37] LABS: HEMATOCRIT 23.9 % (37.0-47.0); HEMOGLOBIN 7.6 gm/dL (12.0-15.0); MCH 24.9 pg (26.0-34.0); MCHC 31.7 g/dL (28.0-37.0); MCV 78.8 fL (80.0-100.0); RBC 3.03 mil/uL (4.20-5.00); RDW 18.8 % (10.5-14.5); WBC 13.4 thou/uL (4.0-11.0)
[2018-11-02 05:42] LABS: CALCIUM 6.8 mg/dL (8.5-10.1); CREATININE 0.9 mg/dL (0.6-1.0); MAGNESIUM 1.3 mg/dL (1.8-2.4); POTASSIUM 3.2 mmol/L (3.5-5.1)
[2018-11-02 07:50] VITALS: BP 122/65
[2018-11-02 11:53] VITALS: BP 107/51
[2018-11-02 16:45] VITALS: BP 120/66
[2018-11-02 16:50] VITALS: BP 110/55
[2018-11-03 03:35] VITALS: BP 133/69
[2018-11-03 08:20] VITALS: BP 119/56
--- NOTE | 2018-11-03 11:13 | HC ---
[facility] [place] [address] CONSULTATION Name: DAKOTA MOSQUEDA Room #: 362-P [facility] IN M.R.#: [id number] Admission: 10/29/18 ������������������ Attend Phys: Anthony Tse MD Discharge: ������������������ Date of : 79 Report #: [id number] THIS REPORT FOR: //name// CC: Tera Tse DATE OF SERVICE: 10/30/2018 CHIEF COMPLAINT: Multiple pressure ulcerations. HISTORY OF PRESENT ILLNESS: This is a 43-year-old female patient with super morbid obesity and chronic respiratory failure requiring ventilatory support. She has been admitted to the hospital with urinary tract infection and sepsis. She seems to be somewhat somnolent, not able to provide any information about herself right now. PAST MEDICAL HISTORY: Positive for history of atrial fibrillation with rapid ventricular response, super morbid obesity, chronic diastolic heart failure, chronic pressure ulcerations, right distal femur fracture, history of chronic obstructive pulmonary disease, ebhyw-fc-ctevsec respiratory failure, tracheostomy, obstructive sleep apnea, hypertension, hypothyroidism, anxiety, depression, aspiration pneumonia, history of urinary tract infection. SOCIAL HISTORY: Positive for being a previous smoker. No alcohol use. FAMILY HISTORY: Unknown. ALLERGIES: Listed allergies include MARTINE INHIBITORS. MEDICATIONS: Include Tylenol, Synthroid, Coreg, Zuplenz, Seroquel, ProSource, Centrum Silver, guaifenesin, Ultram, Calmoseptine, ipratropium and albuterol. REVIEW OF SYSTEMS: Not obtainable due to the patient's condition. PHYSICAL EXAMINATION: VITAL SIGNS: Include temperature 36.6, pulse rate of 86, respiratory rate of 14, blood pressure of 86/66. GENERAL: This is a chronically ill-appearing female patient who appears to be very somnolent. HEENT: Head is normocephalic. Eyes are clear. NECK: Demonstrates tracheostomy. LUNGS: Diminished. HEART: Sounds seem distant. ABDOMEN: Obese, soft. No apparent rigidity. She has intertrigo beneath her abdominal skin folds. EXTREMITIES: Examination of lower extremities further demonstrate what appears [facility] [address] [facility] [address] CONSULTATION Name: DAKOTA MOSQUEDA Room #: 362-P [facility] IN M.R.#: [id number] Admission: 10/29/18 ������������������ Attend Phys: Anthony Tse MD Discharge: ������������������ Date of : 79 Report #: [id number] to be stage 3 pressure ulcer to her left lateral mid foot and stage 3 pressure ulcer to right lateral mid foot and a deep tissue injury to her right lateral ankle. She has some friction, shearing type skin breakdown to the sacral gluteal region. LABORATORY DATA: Includes sodium 136, potassium 3.4, chloride 102, CO2 of 24, BUN 22, creatinine 1.7, glucose of 70, albumin 0.9. White blood cell count 11.0 with a hemoglobin of 8.3, hematocrit of 25.2. CLINICAL IMPRESSION: 1. Stage 3 pressure ulcers to both lateral feet and deep tissue injury to the right lateral ankle. 2. Excoriation and friction skin breakdown to the sacral gluteal region. 3. Abdominal fold intertrigo. 4. Respiratory failure with tracheostomy and ventilatory support. 5. Super morbid obesity. 6. Severe protein-calorie malnutrition with albumin 0.9. 7. Acute kidney injury. RECOMMENDATIONS: At this point in time, I will use a quarter strength Dakin's moist gauze dressing to the lateral feet and mid foot area. She will need a bariatric low air loss mattress. She will need PRAFO boots for pressure prophylaxis of her lower extremities. We will recommend Nutrition and Dietary consult for nutritional support. She will need turning and repositioning, we recommend moisture barrier cream to the sacral gluteal region as well as InterDry Ag to the skin folds beneath her abdomen. Recommend continuation of all medications. PT, OT for strengthening as able. I appreciate being asked to see her in consultation. ��������������������������������������������� <ELECTRONICALLY SIGNED> ���������������������������������������� By: Jalil Li MD ��������������������������������������������� 11/03/18 1113 0909 0330 Jalil Li MD /nt
[2018-11-03 11:32] LABS: HEMOGLOBIN 8.1 gm/dL (12.0-15.0); MCH 25.5 pg (26.0-34.0); MCHC 32.5 g/dL (28.0-37.0); MCV 78.7 fL (80.0-100.0); RBC 3.18 mil/uL (4.20-5.00); RDW 18.6 % (10.5-14.5); WBC 14.1 thou/uL (4.0-11.0)
[2018-11-03 11:40] LABS: CALCIUM 7.6 mg/dL (8.5-10.1); CREATININE 0.7 mg/dL (0.6-1.0); MAGNESIUM 1.9 mg/dL (1.8-2.4)
[2018-11-03 11:55] VITALS: BP 139/73
[2018-11-03 16:49] VITALS: BP 136/73
[2018-11-03 20:23] VITALS: BP 142/73
[2018-11-04 04:15] VITALS: BP 124/65
[2018-11-04 05:38] LABS: HEMATOCRIT 22.9 % (37.0-47.0); HEMOGLOBIN 7.3 gm/dL (12.0-15.0); MCH 25.6 pg (26.0-34.0); MCHC 31.8 g/dL (28.0-37.0); MCV 80.3 fL (80.0-100.0); RBC 2.86 mil/uL (4.20-5.00); RDW 19.3 % (10.5-14.5); WBC 14.2 thou/uL (4.0-11.0)
[2018-11-04 05:50] LABS: CALCIUM 7.4 mg/dL (8.5-10.1); CREATININE 0.7 mg/dL (0.6-1.0); MAGNESIUM 1.9 mg/dL (1.8-2.4)
[2018-11-04 07:39] VITALS: BP 106/56
[2018-11-04 16:49] VITALS: BP 108/54
[2018-11-04 20:00] VITALS: BP 105/58
[2018-11-05 04:00] VITALS: BP 96/49
[2018-11-05 07:30] VITALS: BP 108/57
[2018-11-05 09:54] LABS: HEMATOCRIT 21.9 % (37.0-47.0); HEMOGLOBIN 7.1 gm/dL (12.0-15.0); MCH 25.8 pg (26.0-34.0); MCHC 32.4 g/dL (28.0-37.0); MCV 79.5 fL (80.0-100.0); RBC 2.76 mil/uL (4.20-5.00); RDW 18.6 % (10.5-14.5); WBC 8.2 thou/uL (4.0-11.0)
[2018-11-05 11:30] VITALS: BP 107/52
[2018-11-05 20:22] VITALS: BP 132/53
[2018-11-06 04:17] VITALS: BP 132/55
[2018-11-06 04:49] LABS: CALCIUM 7.7 mg/dL (8.5-10.1); CREATININE 0.7 mg/dL (0.6-1.0); HEMATOCRIT 22.8 % (37.0-47.0); HEMOGLOBIN 7.3 gm/dL (12.0-15.0); MAGNESIUM 1.7 mg/dL (1.8-2.4); MCH 25.6 pg (26.0-34.0); MCHC 31.8 g/dL (28.0-37.0); MCV 80.5 fL (80.0-100.0); POTASSIUM 4.2 mmol/L (3.5-5.1); RBC 2.83 mil/uL (4.20-5.00); RDW 19.2 % (10.5-14.5); WBC 9.6 thou/uL (4.0-11.0)
[2018-11-06 07:53] VITALS: BP 107/64
[2018-11-06 11:28] VITALS: BP 126/67
[2018-11-06 16:31] VITALS: BP 115/89
[2018-11-06 19:55] VITALS: BP 112/56
[2018-11-07 06:00] VITALS: BP 122/65
[2018-11-07 07:58] VITALS: BP 150/76
[2018-11-07 08:06] LABS: INR 1.3; PROTIME 13.4 Seconds (9.3-11.4)
[2018-11-07 11:30] VITALS: BP 146/79
[2018-11-07 11:32] VITALS: BP 133/55
[2018-11-07] MEDS ORDERED: LYRICA 50 MG50 MG PO (13:31)
[2018-11-07] MEDS ORDERED: BACLOFEN20 MG PER TUBE (13:39)
[2018-11-07] MEDS ORDERED: CYMBALTA30 MG PO (13:39)
[2018-11-07] MEDS ORDERED: PULMICORT0.25 MG/3 INH (13:39)
[2018-11-07] MEDS ORDERED: SEROQUEL 25 MG25 M1 PER TUBE (13:39)
[2018-11-07] MEDS ORDERED: TOBRAMYCIN60 MG/50 M IV (13:39)
[2018-11-07] MEDS ORDERED: CEFEPIME-D2 GM/50 ML IV (13:39)
[2018-11-07] MEDS ORDERED: DIGOXIN125 MCG PER TUBE (13:39)
[2018-11-07] MEDS ORDERED: PROBIOTIC1 EAC1 PO (13:39)
[2018-11-07] MEDS ORDERED: ENOXAPARIN40 MG/0.1 SUBQ (13:39)
[2018-11-07 16:23] VITALS: BP 151/73
[2018-11-07 16:28] VITALS: BP 151/73
== END 2018-11-07 19:50 | DRG 870 ==
LOC: ER 08:29 → EROBS 10:59 → 3W 10:59
PROVIDERS: Emergency Medicine; Internal Medicine; Radiology Vascular & Interventional Radiology; ADMIT Hospitalist
PROC: 5A1955Z Respiratory Ventilation, Greater than 96 Consecutive Hours (ICD-10-PCS; principal; 2018-10-29)
PROC: 05HY33Z Insertion of Infusion Device into Upper Vein, Percutaneous Approach (ICD-10-PCS; 2018-11-01)
PROC: 05PYX3Z Removal of Infusion Device from Upper Vein, External Approach (ICD-10-PCS; 2018-11-01)
DX: A41.52 Sepsis due to Pseudomonas (principal); L89.893 Pressure ulcer of other site, stage 3; E43 Unspecified severe protein-calorie malnutrition; G92 Toxic encephalopathy; I50.32 Chronic diastolic (congestive) heart failure; J96.11 Chronic respiratory failure with hypoxia; J96.12 Chronic respiratory failure with hypercapnia; E66.2 Morbid (severe) obesity with alveolar hypoventilation; N17.9 Acute kidney failure, unspecified; I13.0 Hypertensive heart and chronic kidney disease with heart failure and stage 1 through stage 4 chronic kidney disease, or unspecified chronic kidney disease; N12 Tubulo-interstitial nephritis, not specified as acute or chronic; Z68.44 Body mass index [BMI] 60.0-69.9, adult; K94.23 Gastrostomy malfunction; D62 Acute posthemorrhagic anemia; I48.0 Paroxysmal atrial fibrillation; J44.9 Chronic obstructive pulmonary disease, unspecified; L89.159 Pressure ulcer of sacral region, unspecified stage; E03.9 Hypothyroidism, unspecified; K21.9 Gastro-esophageal reflux disease without esophagitis; G60.9 Hereditary and idiopathic neuropathy, unspecified; F32.9 Major depressive disorder, single episode, unspecified; L89.519 Pressure ulcer of right ankle, unspecified stage; S30.810A Abrasion of lower back and pelvis, initial encounter; X58.XXXA Exposure to other specified factors, initial encounter; E87.6 Hypokalemia; Y83.3 Surgical operation with formation of external stoma as the cause of abnormal reaction of the patient, or of later complication, without mention of misadventure at the time of the procedure; D63.8 Anemia in other chronic diseases classified elsewhere; E83.42 Hypomagnesemia; R13.10 Dysphagia, unspecified; N18.9 Chronic kidney disease, unspecified; G89.4 Chronic pain syndrome; F17.200 Nicotine dependence, unspecified, uncomplicated; F41.1 Generalized anxiety disorder; E86.0 Dehydration; Z99.3 Dependence on wheelchair; Z88.8 Allergy status to other drugs, medicaments and biological substances; Z79.899 Other long term (current) drug therapy; Z91.81 History of falling; Z87.01 Personal history of pneumonia (recurrent); Y93.89 Activity, other specified; Y92.89 Other specified places as the place of occurrence of the external cause; Y99.8 Other external cause status
CPT/HCPCS: 10879; 27000

== ENCOUNTER 2018-11-13 06:12 | Inpatient (IN) | payer MEDICARE, OTHER ==
[2018-11-13] VITALS (24 sets, daily range): BP systolic 68–121; BP diastolic 46–76
[~2018-11-13] VITALS: Ht 165.1 cm; Wt 168.7 kg
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
[~2018-11-13 06:12] MED LIST changes: +BACLOFEN20 MG PER TUBE; +CALMOSEPTINE O3.5 GM TOP; +CALMOSEPTINE OI71 GM TOP; +CEFEPIME-D2 GM/50 ML IV; +CENTRUM SILVER1 EAC4 PER TUBE; +PROBIOTIC1 EAC1 PO; +PROSOURCE NO CA30 ML PER TUBE; +PROSOURCE NO CA30 ML PO; +ROBAFEN100 MG/5 M PER TUBE; +ROBAFEN100 MG/5 M PO; +SEROQUEL 25 MG25 M1 PER TUBE; +TOBRAMYCIN60 MG/50 M IV
[2018-11-13 06:29] LABS: BE(vivo) -9.1 mmol/L (-2 to +3); HCO3 16.4 mmol/L (22.0-26.0); PCO2 33.9 mmHg (35.0-45.0); PO2 316.4 mmHg (80.0-100.0); URINE BILIRUBIN NEGATIVE (Negative); URINE BLOOD 2+ (Negative); URINE COLOR YELLOW; URINE GLUCOSE-RANDOM* NEGATIVE (Negative); URINE KETONES TRACE (Negative); URINE LEUKOCYTES-REFLEX TRACE (Negative); URINE NITRITE-REFLEX NEGATIVE (Negative); URINE PROTEIN (DIPSTICK) 2+ (Negative); URINE UROBILINOGEN 0.2 E.U./dl (0.2-1.0); sO2 99.7 % (92.0-98.0)
[2018-11-13 06:30] LABS: URINE CLARITY HAZY
[2018-11-13 06:31] LABS: pH 7.302 (7.360-7.450)
--- NOTE | 2018-11-13 06:36 | NUR ---
MOTHER IS HERE, AND SHE HAS BEEN UPDATED
[2018-11-13 06:41] LABS: CASTS None Seen /LPF (None Seen); MUCUS 0-3 Light strn/LPF (None Seen); SQUAMOUS 0-3 Few /LPF (0-3)
[2018-11-13 06:42] LABS: URINE RBC 0-2 Rare /HPF (0-2); URINE WBC-REFLEX 6-15 Few /HPF (0-5)
[2018-11-13 06:43] LABS: BACTERIA-REFLEX 1-9 Few /HPF (None Seen); CALCIUM OXALATE 0-3 Few /LPF (None Seen); YEAST-REFLEX Present (None Seen)
--- NOTE | 2018-11-13 07:02 | NUR ---
REPORT FROM [facility], NURSE STATES PT WENT THROUGHT 12 ABD PADS LAST NIGHT. RE- PORTS HEART RATE IS 43 BP91/63 LOVENOX DCD YESTERDAY
--- NOTE | 2018-11-13 07:10 | NUR ---
PT MOTHER UPDATED
[2018-11-13] MEDS ORDERED: ROBAFEN100 MG/5 M PER TUBE (07:19)
[2018-11-13 07:28] LABS: ANION GAP 11 mmol/L (7-16); BUN 39 mg/dL (7-18); CHLORIDE 107 mmol/L (98-107); CO2 19 mmol/L (21-32); CREATININE 1.3 mg/dL (0.6-1.0); GLUCOSE 80 mg/dL (74-106); POTASSIUM 4.7 mmol/L (3.5-5.1); SODIUM 137 mmol/L (136-145)
[2018-11-13] MEDS ORDERED: ACIDOPHILUS1 EAC4 PER TUBE (07:30)
[2018-11-13] MEDS ORDERED: CALMOSEPTINE O3.5 GM TOP (07:32)
[2018-11-13 07:38] LABS: ALBUMIN 0.8 g/dL (3.4-5.0); MAGNESIUM 1.5 mg/dL (1.8-2.4); SGOT 25 U/L (15-37); SGPT 12 U/L (30-65); TOTAL BILIRUBIN 0.2 mg/dL (<0.1-1.0); TOTAL PROTEIN 5.3 g/dL (6.4-8.2); TROPONIN-I <0.06 ng/mL (<0.06)
--- NOTE | 2018-11-13 09:16 | EKG ---
[place] [address] [facility] [employer] [place] [address] ELECTROCARDIOGRAM REPORT Name: DAKOTA MOSQUEDA Room #: 170-6 ADM IN M.R.#: [id number] ������������������ Admission: 11/13/18 ������������������ Attend Phys: Lance Platt MD Discharge: ������������������ Date of : 79 Report #: [id number] ����������������������������������������������������������������� [id number] THIS REPORT FOR: //name// [facility] ED Test Date: 2018-11-13 Test Time: 07:12:09 Pat Name: DAKOTA MOSQUEDA Department: Room: 170 Gender: F Welfare Visitor: : 1975 Requested By: Luis Enrique Ahuja Order Number: [id number] MD: Rosales Carlos Measurements Intervals [place] Rate: 135 P: 62 RI: 137 QRS: 50 QRSD: 69 T: QT: 291 QTc: 437 Interpretive Statements Sinus tachycardia Ventricular premature complex Nonspecific ST and T wave abnormality Compared to ECG 07/17/2018 15:08:10 Ventricular premature complex(es) now present Electronically Signed On 11-13-2018 9:15:54 CDT by Rosales Carlos [email or web address] ��������������������������������������������� <ELECTRONICALLY SIGNED> ���������������������������������������� By: Rosales Carlos MD, [facility] ��������������������������������������������� 11/13/18914 1 1 Rosales Carlos MD, [facility] /EPI
[2018-11-13 10:19] LABS: HEMOGLOBIN 7.6 gm/dL (12.0-15.0); MCH 25.9 pg (26.0-34.0); MCHC 30.5 g/dL (28.0-37.0); MCV 84.9 fL (80.0-100.0); RBC 2.95 mil/uL (4.20-5.00); RDW 20.5 % (10.5-14.5); WBC 14.5 thou/uL (4.0-11.0)
[2018-11-13 10:29] LABS: APTT 39.5 Seconds (24.5-32.8); INR 1.8; PROTIME 18.6 Seconds (9.3-11.4)
[2018-11-13 10:34] LABS: FIBRINOGEN 469.2 mg/dL (210-360)
[2018-11-13 10:56] LABS: ABSOLUTE NEUTROPHILS 2.9 thou/uL (1.4-8.2); ATYPICAL LYMPHS 3 %; CORRECTED WBC 13.1 thou/uL (4.0-11.0); NUCLEATED RBCS 11 /100WBC; PLATELET COUNT 344 thou/uL (150-400)
[2018-11-13 10:57] LABS: ANISOCYTOSIS 2+; PLATELET ESTIMATE NORMAL; POLYCHROMASIA 1+
[2018-11-13 13:19] LABS: CREATININE 1.5 mg/dL (0.6-1.0); POTASSIUM 3.8 mmol/L (3.5-5.1)
[2018-11-13 13:44] LABS: BE(vivo) -13.7 mmol/L (-2 to +3); HCO3 13.3 mmol/L (22.0-26.0); PCO2 35.2 mmHg (35.0-45.0); PO2 81.3 mmHg (80.0-100.0); pH 7.196 (7.360-7.450); sO2 93.5 % (92.0-98.0)
--- NOTE | 2018-11-13 15:28 | NUR ---
ASSUMED CARE OF PT AT 1030 THIS SHIFT. PT HAS BEEN MINIMALLY RESPONSIVE, WILL OPEN EYES TO NAME, HOWEVER NOT ABLE TO MOVE EXTREMITIES. PT WAS ADMITED FOR SEPSIS AND HAS SEVERE SKIN BREAKDOWN. PT HAS SEVERAL LARGE SKIN TEARS IN PANUS, BUTTOCKS, AND ARMPIT AREAS WELL PRESSURE ULCERS ON FEET. PT WAS SEEN BY WOUND CARE, WOUNDS CULTURED, ORDERS ARE IN. PT IS CURRENTLY RESTING COMFORTABY IN ROOM, ASSESSMENTS ARE DOCUMENTED. PT HAS HAD VISITORS THIS SHIFT, EDUCATION WAS PROVIDED. PLAN OF CARE IS TO CONTINUE TO MONITOR PT CLOSELY.
--- NOTE | 2018-11-13 15:40 | NUR ---
WOUND CONSULT; ROUNDING TODAY WITH DR LUCIAN JUAREZ AND RUTHANN COOK CHILL TECHNICIAN. A WELL KNOW PATIENT TO US IS ADMITTED TODAY WITH MANY AREAS OF SKIN BREAKDOWN. MOST ALL SKIN FOLDS ARE AFFECTED. THE BACK ABDOMINAL FOLDS, ARM PITS, PERINEAL AREAS ALL LIKLEY A FUNGAL ETIOLOGY. THIS PATIENT HAS A HISTORY OF MANY HOSPITAL ADMESSIONS OF REFUSING CARE AND REFUSING TO TURN. BEEFY RED TISSUE WITH THE EPITHEALIAL LAYER HAS SLOUGHED OFF. BILATERAL FEET/HEELS PRESSURE WOUNDS. THE RIGHT LATERAL FOOT HAD A WHITE TENDON EXPOSED. RECOMMENDATIONS; 1-TO ALL SKIN FOLDS AREAS OF BREAKDOWN; NYSTATIN CREAM MIXED WITH ZGUARD DAILY/PRN. 2-LEFT LAT HIP;BOARDERED FOAM. 3-LEFT LAT HEEL; BOARDERED FOAM. 4-RIGHT LAT FOOT;BOARDERED FOAM
--- NOTE | 2018-11-13 15:54 | HC ---
[facility] [place] [address] CONSULTATION Name: DAKOTA MOSQUEDA Room #: 241-P ADM IN M.R.#: [id number] Admission: 11/13/18 ������������������ Attend Phys: Lance Platt MD Discharge: ������������������ Date of : 79 Report #: [id number] THIS REPORT FOR: //name// CC: Tera Platt PULMONARY CONSULTATION REFERRING PHYSICIAN: Lance Platt M.D. REASON FOR REFERRAL: Fkqje-nf-pucigha respiratory failure. HISTORY OF PRESENT ILLNESS: The patient is a 43-year-old -[place] female, well known to the Pulmonary Service, brought to the Emergency Room this morning with weeping wounds from her abdominal pannus ulcer and altered mental status. She is on a ventilator chronically. A Pulmonary consultation was requested. She was last hospitalized earlier this month for UTI along with sepsis. The patient resides in a long-term care facility. The patient was in her usual state of health until yesterday. The patient started bleeding from her abdominal wounds. The patient had been on Lovenox. This was discontinued. With persistent bleeding, she was transferred to the Emergency Room. Her mentation also was noted to be decreased. She was borderline hypotensive along with being diaphoretic. Normally, the patient is awake, alert. PAST MEDICAL HISTORY: Notable for chronic respiratory failure due to morbid obesity; MARILYN; obesity hypoventilation syndrome; chronic trach; COPD; adrenal insufficiency; debility and weakness; history of critical care myopathy; chronic heart failure; chronic pain, on chronic narcotics; depression; anxiety disorder; history of decubitus ulcer involving coccyx; history of right distal femur fracture; hypertension; hypothyroidism; gastroesophageal reflux disease and chronic lower extremity wounds and edema. PAST SURGICAL HISTORY: As mentioned above. ALLERGIES: MARTINE INHIBITORS, WHICH RESULT IN SEVERE COUGH. MEDICATIONS: Reported medications from the facility include DuoNebs, Lyrica and baclofen. She was on Lovenox 40 mg subq once a day, which was discontinued; digoxin 0.125 mg once a day; Cymbalta 30 mg once a day; Seroquel 25 mg p.o. b.i.d.; budesonide 0.25 mg b.i.d.; cefepime 2 grams IV q. 8 hours and tobramycin [address] [address] CONSULTATION Name: DAKOTA MOSQUEDA Room #: [facility] IN M.R.#: [id number] Admission: 11/13/18 ������������������ Attend Phys: Lance Platt MD Discharge: ������������������ Date of : 79 Report #: [id number] 60 mg x 400 mg IV every other day. FAMILY HISTORY: Noncontributory. SOCIAL HISTORY: The patient has smoked in the past, quit several years ago. No past history of alcohol use. She was at [facility]. REVIEW OF SYSTEMS: Deferred as the patient is encephalopathic. PHYSICAL EXAMINATION: GENERAL: On exam, She is not as responsive. Eyes are open. VITAL SIGNS: Temperature is pending. Pulse is 131, blood pressure 106/57 mmHg and respiratory rate is 20. HEENT: Normocephalic, atraumatic. Eyes are open, but does not track. NECK: Status post tracheostomy. CHEST: Breath sounds are fair with moderate bilateral wheezes. CARDIOVASCULAR: Distant heart sounds. No obvious murmurs or gallops. BREASTS: Exam is deferred. ABDOMEN: Obese, soft and nontender. No masses felt. GENITOURINARY: Abdominal pannus with wounds and some oozing of blood noted on the wound dressings. RECTAL: Deferred. EXTREMITIES: With 2-3+ edema bilaterally. No cyanosis or clubbing. NEUROLOGICAL EXAMINATION: She is not responsive at this time. LABORATORY DATA: Influenza A and B swab is negative. Probably, chest x-ray shows hazy infiltrates in the right lower lung field. CT head was grossly unremarkable, no acute changes. Sodium 137, potassium 4.7, chloride 107, CO2 is 19, BUN is 39 and creatinine is 1.3. Liver enzymes are mildly abnormal. WBC 9600, hemoglobin 7.3 and platelets are normal. Albumin 0.8. Arterial blood gas revealed pH of 7.30, pCO2 of 33 and pO2 of 316. She is currently on assist-control FiO2 of 50%, tidal volume 450, rate of 17, ventilation of 10, peak inspiratory pressure of 12, plateau pressure was not measured and PEEP of 5. IMPRESSION: 1. Bleeding around the abdominal wound area, may be related to recent anticoagulation. Disseminated intravascular coagulation cannot be ruled out. 2. Urinary tract infection with severe sepsis. The patient was said to be borderline hypotensive along with tachycardia. 3. Eavrm-kc-gnzfivq hypoxic respiratory failure. 4. Possible pneumonia, right lower lobe. 5. Encephalopathy due to severe sepsis. 6. Profound protein-calorie malnutrition, albumin 0.8. 7. Anemia due to chronic kidney disease. 8. Metabolic acidosis due to severe sepsis. [facility] [address] [place] [address] CONSULTATION Name: DAKOTA MOSQUEDA Room #: 241-P ADM IN Asad#: [id number] Admission: 11/13/18 ������������������ Attend Phys: Lance Platt MD Discharge: ������������������ Date of : 79 Report #: [id number] 9. Chronic kidney disease. Baseline creatinine had been around 1.4 to 1.9 in the past. 10. Obstructive sleep apnea, obesity hypoventilation syndrome, morbid obesity, chronic respiratory failure, chronic trach and positive mechanical ventilation during sleep. 11. Chronic obstructive pulmonary disease with exacerbation. 12. Debility and weakness with past history of critical care myopathy. 13. Lbono-hw-ccmcxkw diastolic heart failure. 14. Hypertension. 15. History of adrenal insufficiency. 16. Chronic pain syndrome, depression and anxiety. 17. Overall prognosis is poor given multiple hospitalizations, severe comorbid conditions. At this time, the patient's mother still desires aggressive care. RECOMMENDATIONS: We will continue mechanical ventilation, wean O2 for saturation 90%, broad-spectrum antibiotics and would initiate sepsis protocol. The patient is in need of IV access and will be sent to Interventional Radiology for central line placement. Agree with holding heparin products for DVT prophylaxis given bleeding; SCDs for now. Bronchodilators and corticosteroids for exacerbation of COPD. Overall, very difficult case in this patient with severe comorbid conditions with poor outlook. Thank you for this consultation. ��������������������������������������������� <ELECTRONICALLY SIGNED> ���������������������������������������� By: Wayne Veronica MD ��������������������������������������������� 11/13/18 1554 0921 1212 Wayne Veronica MD /nt
[2018-11-13 19:00] LABS: BE(vivo) -12.1 mmol/L (-2 to +3); HCO3 14.4 mmol/L (22.0-26.0); sO2 94.1 % (92.0-98.0)
[2018-11-13 19:07] LABS: pH 7.233 (7.360-7.450)
[2018-11-13 19:52] LABS: HEMATOCRIT 24.6 % (37.0-47.0); HEMOGLOBIN 7.7 gm/dL (12.0-15.0); MCH 26.7 pg (26.0-34.0); MCHC 31.4 g/dL (28.0-37.0); PLATELET COUNT 281 thou/uL (150-400); RDW 20.3 % (10.5-14.5); WBC 11.6 thou/uL (4.0-11.0)
[2018-11-13 20:14] LABS: ABSOLUTE NEUTROPHILS 7.9 thou/uL (1.4-8.2); ANISOCYTOSIS 2+; NUCLEATED RBCS 2 /100WBC
[2018-11-13 20:15] LABS: HYPOCHROMASIA SLIGHT; POLYCHROMASIA 1+
[2018-11-13 20:16] LABS: LARGE PLATELETS FEW
[2018-11-13 21:09] LABS: CALCIUM 8.2 mg/dL (8.5-10.1); CREATININE 1.6 mg/dL (0.6-1.0); POTASSIUM 4.6 mmol/L (3.5-5.1)
[2018-11-13 23:35] LABS: URINE CREATININE-RANDOM* 107.7 mg/dL
[2018-11-14] VITALS (15 sets, daily range): BP systolic 106–138; BP diastolic 54–97
--- NOTE | 2018-11-14 03:51 | NUR ---
ASSUMED PT CARE AROUND 1900. PT REMAINS LETHARGIC ON THE VENT. O2 SATS STABLE. PT OPENS EYES SPONTANEOUSLY AND WITHDRAWS TO PAINFUL STIMULI. SHE AWAKENS MORE WHEN BEING REPOSITIONED OR CLEANED UP. PT TRANSFERED TO BARIATRIC SPECIALTY BED. VSS. BP STABLE ON LEVOPHED GTT. RN SPOKE WITH DR PHAN REGARDING NEW CONSULT AND PT CONDITION. ORDERS RECEIVED. DR PHAN WAS NOTIFIED OF PT'S LOW URINE OUTPUT. PT HAS MULTIPLE WOUNDS, AREAS OF SLOUGHING SKIN THAT ARE BLEEDING. SHEETS CHANGED AND NEW DRESSINGS APPLIED ORDERED TO WOUNDS. FENTANYL GIVEN FOR PAIN. PT SLEEPING AT THIS TIME. NOT PROGRESSING WELL TOWARD POC GOALS. WILL CONTINUE TO MONITOR FURTHER.
[2018-11-14 05:33] LABS: BE(vivo) -8.8 mmol/L (-2 to +3); HCO3 16.8 mmol/L (22.0-26.0); PCO2 35.3 mmHg (35.0-45.0); PO2 72.3 mmHg (80.0-100.0); pH 7.296 (7.360-7.450); sO2 93.1 % (92.0-98.0)
[2018-11-14 05:53] LABS: APTT 40.1 Seconds (24.5-32.8); PROTIME 20.3 Seconds (9.3-11.4)
[2018-11-14 05:54] LABS: ALBUMIN 0.7 g/dL (3.4-5.0); CALCIUM 7.9 mg/dL (8.5-10.1); CREATININE 1.7 mg/dL (0.6-1.0); MAGNESIUM 1.5 mg/dL (1.8-2.4); POTASSIUM 4.6 mmol/L (3.5-5.1); TOTAL BILIRUBIN 0.2 mg/dL (<0.1-1.0); TOTAL PROTEIN 5.8 g/dL (6.4-8.2)
[2018-11-14 06:05] LABS: HEMOGLOBIN 7.3 gm/dL (12.0-15.0); RBC 2.78 mil/uL (4.20-5.00); RDW 21.5 % (10.5-14.5)
[2018-11-14 06:06] LABS: HEMATOCRIT 23.8 % (37.0-47.0); MCH 26.4 pg (26.0-34.0); MCHC 30.9 g/dL (28.0-37.0); MCV 85.5 fL (80.0-100.0); PLATELET COUNT 232 thou/uL (150-400); WBC 15.3 thou/uL (4.0-11.0)
[2018-11-14 06:40] LABS: ABSOLUTE NEUTROPHILS 8.1 thou/uL (1.4-8.2); NUCLEATED RBCS 5 /100WBC
[2018-11-14 06:41] LABS: ANISOCYTOSIS 2+; POIKILOCYTOSIS 1+; POLYCHROMASIA 1+
--- NOTE | 2018-11-14 08:44 | NUR ---
LATE ENTRY FOR 11/13/18 ~[id number].GEHA IN AROUND 1500,PT TURNED W MAX ASSIST OF 3. PADS BENEATH PT SATURATED W SEROUS DRAINAGE.BED WET DOWN TO MATTRESS.TOTAL BATH,CARE TO ALL OPEN AREAS (SEE INTERVENTIONS).PT TURNED W MAX ASSIST OF 4.ALL PADS BENEATH PT SATURATED W SEROUS DRAINAGE. D/W HUGE FLUID LOSS THRU OPEN AREAS DRAINING,POC. PT'S MOM IN ROOM DURING BATH & TURNS.KEPT UPDATED ON POC.LOTS OF EMO SUPPORT TO MOM.PT MORE AWAKE,FACIAL GRIMACING & MOUTH OPEN IN SCREAM W TURNS AND MOVEMENTS OF EXTREM'S.ETS FOR LG AMT CREAMY WHITE.TRACH SITE LOOKS GOOD.CALL TO RE:NEED FOR PAIN MED. VERY DIFFICULT TO TURN PT,PERFORM CARE-NEEDING 4 PEOPLE TO CARE FOR PT DUE TO HABITUS, EXTENSIVE OPEN AREAS. WAITING ON SPECIALTY BED.--VW
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
--- NOTE | 2018-11-14 11:50 | NUR ---
ASKED TO ASSIST WITH TRANSFER TO TERTIARY HOSPITAL WITH A BURN UNIT. CM SPOKE WITH PT AND PT'S MOTHER AND THEY OFFERED CHOICE OF [facility] AND [facility]. [facility] IS PREFERRED HOSPITAL AND REFERRAL FAXED TO [facility] AND SPOKE WITH TRANSFER CENTER RN. RECEIVED CALL FROM TRANSFER CENTER AROUND 1100. DR. CHELSEA STEVENS ACCEPTING PHYSICIAN AND WILL GO TO [place] [address], [facility]. # FOR REPORT PROVIDED TO RN [phone]. CHART COPIED, TRANSFER FORM COMPLETED AND SIGNED BY PT'S MOTHER. [facility] TRANSPORT WITH EMERGENCY DEPARTMENT RN TIME 1300.
[2018-11-14] MEDS ORDERED: SOLU-MEDRO125 MG/23 IV PUSH (11:59)
[2018-11-14] MEDS ORDERED: FENTANYL 050 MCG/1 M IV PUSH (11:59)
[2018-11-14] MEDS ORDERED: IPRAT-ALBUT 0.5-3 ML INH ×2 (11:59)
--- NOTE | 2018-11-14 13:50 | NUR ---
ASSUMED CARE OF PT AT 0700, PT IS A/O BUT NONVERBAL AND TRACHED AND TOLERATING WELL. PT WITH WEAPING WOUNDS AND VASTLY SPREAD ACROSS HER BODY ESPECIALLY RO GROIN, BACK OF THIGHS, UNDER ARMPITS. PAIN MEDS ADMINISTERED ORDERED. 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 [facility] RECIEVED TO TRANSFER PT TO . PT ACCEPTED TO AND REPORT ALREADY CALLED TO ACCEPTING NURSE IN . [facility] HERE TO [facility] PT AT 1340. PAPER WORK HANDED TO THEM. FAMILY AWARE AND WILL FOLLOW PATIENT TO THE NEXT HOSPITAL.
== END 2018-11-14 13:45 | disposition short-term general hospital (02) | DRG 871 ==
LOC: ER 06:12 → ICU 07:58 → EROBS 07:58 → ICU 09:53
PROVIDERS: Emergency Medicine; Internal Medicine Nephrology; Internal Medicine Pulmonary Disease; Specialist; ADMIT Internal Medicine
DX: A41.9 Sepsis, unspecified organism (principal); E43 Unspecified severe protein-calorie malnutrition; L89.623 Pressure ulcer of left heel, stage 3; L89.894 Pressure ulcer of other site, stage 4; I50.33 Acute on chronic diastolic (congestive) heart failure; J96.21 Acute and chronic respiratory failure with hypoxia; R65.21 Severe sepsis with septic shock; J96.22 Acute and chronic respiratory failure with hypercapnia; G92 Toxic encephalopathy; Z68.44 Body mass index [BMI] 60.0-69.9, adult; K92.2 Gastrointestinal hemorrhage, unspecified; N39.0 Urinary tract infection, site not specified; F11.20 Opioid dependence, uncomplicated; J44.1 Chronic obstructive pulmonary disease with (acute) exacerbation; N17.9 Acute kidney failure, unspecified; D68.9 Coagulation defect, unspecified; Z99.11 Dependence on respirator [ventilator] status; I13.0 Hypertensive heart and chronic kidney disease with heart failure and stage 1 through stage 4 chronic kidney disease, or unspecified chronic kidney disease; I48.91 Unspecified atrial fibrillation; E66.01 Morbid (severe) obesity due to excess calories; G47.00 Insomnia, unspecified; G47.33 Obstructive sleep apnea (adult) (pediatric); E03.9 Hypothyroidism, unspecified; K21.9 Gastro-esophageal reflux disease without esophagitis; G60.9 Hereditary and idiopathic neuropathy, unspecified; F41.9 Anxiety disorder, unspecified; F32.9 Major depressive disorder, single episode, unspecified; E86.9 Volume depletion, unspecified; D63.1 Anemia in chronic kidney disease; N18.9 Chronic kidney disease, unspecified; G89.4 Chronic pain syndrome; E88.09 Other disorders of plasma-protein metabolism, not elsewhere classified; I95.9 Hypotension, unspecified; L30.9 Dermatitis, unspecified; D70.9 Neutropenia, unspecified; Z87.81 Personal history of (healed) traumatic fracture; Z93.0 Tracheostomy status; Z87.891 Personal history of nicotine dependence
CPT/HCPCS: 10078